=== PATIENT | female | born 1995 | race Caucasian/White ===

== ENCOUNTER → 2020-05-31 13:45 | Outpatient (BNVA) | payer OTHER, SELFPAY | PROVIDERS: PCP Internal Medicine; Visit Provider Internal Medicine | DX: S93.402A Sprain of unspecified ligament of left ankle, initial encounter (principal); X50.1XXA Overexertion from prolonged static or awkward postures, initial encounter | CPT/HCPCS: 73610; 99202 ==

== ENCOUNTER 2020-12-10 15:35 | Emergency (ER) | payer OTHER, SELFPAY ==
[2020-12-10 16:00] VITALS: BP 108/63; PULSE 85; RESP 16; TEMP 36.3; O2SAT 98; BMI 36.6
[2020-12-10] MEDS: Acetaminophen 325 MG TABLET 650 MG PO (16:05)
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
== END 2020-12-10 17:27 | disposition home or self-care (01) ==
PROVIDERS: Emergency Provider Student in an Organized Health Care Education/Training Program
DX: F07.81 Postconcussional syndrome (principal); F17.210 Nicotine dependence, cigarettes, uncomplicated; Z71.6 Tobacco abuse counseling; Z79.899 Other long term (current) drug therapy
CPT/HCPCS: 99283; 99284

== ENCOUNTER 2020-12-17 10:30 | Outpatient (RCR) | payer OTHER, SELFPAY ==
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
[2020-12-03 12:50] VITALS: BMI 36.8
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
--- NOTE | 2020-12-06 10:47 | PM.EVENT ---
Event Note Date of Service: 12/06/20 Event Note: Out of work note for dates 11/29/2020 through 12/20/2020 scanned and sent to patient, per her request.
--- NOTE | 2020-12-06 16:01 | PC.NURSE ---
Case opened in treatment team
--- NOTE | 2020-12-08 14:21 | HO.PHPPROGNO ---
Subjective Subjective Date of Service: 12/08/20 Reason For Visit: Anxiety, MDD Guardianship: No Medical Problems Affecting Mental Status: No Interim History: Client reports feeling GI side effects of Lexapro the following days including upset stomach. She reports that following day she did not feel bad and that appear to be resolving. She states she has not needed to take p.r.n. hydroxyzine. Reports that overall she feels groups are helping control her anxiety, and that her sleep has improved. Would like to continue Lexapro. Has had no allergic reaction in any way to medication. She is a little nervous regarding being alone after her family leaves, but feels confident that she will be able to manage being alone. Medication Compliance: Yes Side effects from medications: Yes (GI upset, resolving) Attending Groups: Yes Review of Systems Acute medical concerns: No Medical Review of Systems: unchanged Review of Systems Review of Systems Yes all other systems are reviewed and are negative Mental Status Exam Mental Status Exam Narrative: Well-developed, well-nourished female, in NAD. Appropriately dressed and groomed. Endorses feelings of some anxiety including feeling nervous, with excessive worry at times, trouble relaxing, and restlessness. Reports that these symptoms have been subsiding and intensity over the past week. Patient Appearance: Well Grooomed and Appropriate Patient Orientation: Person, Place, Time and Situation Level of Consciousness: Awake, Appropriate and Alert Patient Behavior: Appropriate, Cooperative and Good Eye Contact Mood Description: Calm and Appropriate Affect Description: Appropriate and Anxious Patient Cognition Impaired: No Ability to Follow Directions: Excellent Speech Pattern: Clear, Appropriate and Coherent Memory Description: Intact Hallucinations: None Delusions: Not Present Thought Process: Intact, Goal Oriented and Linear Thought Content: positive for Intact, positive for Goal Oriented and positive for Linear Depressive Symptoms: Difficulty Sleeping (improving) Judgement: Fair Diagnostics Vital Signs (24Hr): Body Mass Index 36.8 Assessment & Plan Assessment & Plan (1) Major depressive disorder, single episode with anxious distress: Status: Acute Code(s): F32.9 - Major depressive disorder, single episode, unspecified Assessment and Plan: Patient reports improvement in symptoms with initiation of Lexapro. Reports she has not experienced any type of side effects from Lexapro. Is willing to continue, with dose titration. Patient reports she has not taken p.r.n. hydroxyzine, although she understands it is available to her and will utilize it if needed. (2) SHON (generalized anxiety disorder): Status: Acute Code(s): F41.1 - Generalized anxiety disorder (3) PTSD (post-traumatic stress disorder): Status: Acute Code(s): F43.10 - Post-traumatic stress disorder, unspecified Assessment and Plan: 1. Increase lexapro to 10mg daily. 30-day script sent to pharmacy. 2. Keep vistaril prn, has not utilized. Has a supply that was ordered last week, no refills needed. 3. Follow-up as per protocol. Patient educated on: diagnosis, medication risk/benefits and therapeutic strategies Informed Consent: understands Reason for contiued partial hosp. stay Substantial Risk for: inability to function Certification I certify that partial hospital treatment is medically necessary due to the symptoms and problems resulting from the patient's mental illness and the failure to treat the patient at the partial hospital level of care would likely result in the patient requiring inpatient psychiatric care which could not be prevented at a less intensive level of care. Greater than 50% of the session was spent on counseling and/or coordination of care Discharge Plan Discharge Attending provider: Issa Moser Medications: New hydroxyzine HCl 25 mg tablet 25 mg PO BID PRN (Reason: anxiety) Qty: 14 RF: 0 escitalopram oxalate [Lexapro] 10 mg tablet 10 mg PO DAILY Qty: 30 RF: 0 Telehealth Telehealth Location of provider rendering services: practice address Patient Identification confirmed using: Name, : Yes Telehealth method: video Patient verbally consented to treatment: Yes Patient verbally consented to billing insurance company: Yes Patient informed of any privacy concerns related to visit: Yes Time spent with patient (mins): 15
--- NOTE | 2020-12-14 11:48 | P.PNPSP_ITS ---
Subjective Subjective Date of Service: 12/14/20 Reason For Visit: Anxiety, MDD Healthcare Proxy: No Guardianship: No Medical Problems Affecting Mental Status: No Interim History: I evaluated the pt this morning and upon inquiry she reports positive benefit on lexapro, ?it seems to be fine for right now, when i remember to take them.? Now has an alarm on her phone. No side effects reported. Says ?I feel like its kept my anxiety down,? hasnt had a panic attack. Says she is sleeping through the night again. Feeling safe, sx of depression are manageable, ?im definitely feeling a lot better.? PCP is willing to prescribe lexapro. Medication Compliance: Yes Side effects from medications: No Attending Groups: Yes Review of Systems Acute medical concerns: No Medical Review of Systems: unchanged Review of Systems Review of Systems CVS: No c/o chest pain, palpitations, no SOB [employer]: No c/o dizziness, headache GI: No c/o Nausea, Vomiting, diarrhea, constipation or heartburn Mental Status Exam Mental Status Exam Narrative: Narrative:?Well-developed, well-nourished female, in NAD.? Appropriately dressed and groomed.? Endorses feelings of some anxiety including feeling nervous, with excessive worry at times, trouble relaxing, and restlessness.? Reports that these symptoms have been subsiding and intensity over the past week. Patient Appearance:?Well Grooomed and Appropriate Patient Orientation:?Person, Place, Time and Situation Level of Consciousness:?Awake, Appropriate and Alert Patient Behavior:?Appropriate, Cooperative and Good Eye Contact Mood Description:?Calm and Appropriate Affect Description:?Appropriate and euthymic Patient Cognition Impaired:?No Ability to Follow Directions:?Excellent Speech Pattern:?Clear, Appropriate and Coherent Memory Description:?Intact Hallucinations:?None Delusions:?Not Present Thought Process:?Intact, Goal Oriented and Linear Thought Content:?positive for Intact, positive for Goal Oriented and positive for Linear Depressive Symptoms:?Difficulty Sleeping (improving) Judgement:?Fair Diagnostics Vital Signs (24Hr): Body Mass Index 36.8 Assessment & Plan Assessment & Plan (1) Major depressive disorder, single episode with anxious distress: Status: Acute Code(s): F32.9 - Major depressive disorder, single episode, unspecified (2) SHON (generalized anxiety disorder): Status: Acute Code(s): F41.1 - Generalized anxiety disorder (3) PTSD (post-traumatic stress disorder): Status: Acute Code(s): F43.10 - Post-traumatic stress disorder, unspecified Assessment and Plan: Continue lexapro trial due to reported benefit. Certification I certify that partial hospital treatment is medically necessary due to the symptoms and problems resulting from the patient's mental illness and the failure to treat the patient at the partial hospital level of care would likely result in the patient requiring inpatient psychiatric care which could not be prevented at a less intensive level of care. Greater than 50% of the session was spent on counseling and/or coordination of care Discharge Plan Discharge Attending provider: Issa Moser Medications: New hydroxyzine HCl 25 mg tablet 25 mg PO BID PRN (Reason: anxiety) Qty: 14 RF: 0 escitalopram oxalate [Lexapro] 10 mg tablet 10 mg PO DAILY Qty: 30 RF: 0 No Action ondansetron HCl [Zofran] 4 mg tablet 4 mg PO Q6H PRN (Reason: nausea and vomiting) Qty: 10 RF: 0
--- NOTE | 2020-12-16 09:25 | PC.ADMIT ---
Patient not scheduled for PHP today. Stated her daughter has an appointment that she needs to bring her to, also she stated her mother is currently in the emergency room for gallstones and patient is going to see her now. Plans on coming to the program tomorrow.
--- NOTE | 2020-12-17 15:26 | PC.NURSE ---
Called [facility] and [facility] for pt's therapist, Jennifer Escalante, informing her of pt's successful discharge today.
== END 2020-12-21 07:11 | disposition home or self-care (01) ==
LOC: HO.PHPA 10:30
PROVIDERS: Visit Provider Psychiatry & Neurology Psychiatry
DX: F32.9 Major depressive disorder, single episode, unspecified (principal); F41.1 Generalized anxiety disorder; F43.10 Post-traumatic stress disorder, unspecified
CPT/HCPCS: 90791; 90853

== ENCOUNTER 2023-01-18 05:17 | Emergency (ER) | payer OTHER, SELFPAY ==
--- NOTE | 2023-01-18 05:29 | ED_ITS ---
HPI - General Adult General Chief complaint: General Medical Stated complaint: n/v chills Time Seen by Provider: 01/18/23 05:28 Source: patient Mode of arrival: ambulatory Limitations: no limitations History of Present Illness HPI narrative: Patient complaining of body aches headache nausea vomiting for last few days patient never got vaccinated against COVID no shortness of breath no chest pain does have a history of migraine headaches with light sensitivity no abdominal pain or diarrhea Related Data Previous Rx's Medication Instructions Recorded hydroxyzine HCl 25 mg tablet 25 mg PO BID PRN anxiety #14 tabs 12/03/20 escitalopram oxalate 10 mg tablet 10 mg PO DAILY #30 tabs 12/08/20 (Lexapro) ondansetron HCl 4 mg tablet 4 mg PO Q6H PRN nausea and 12/10/20 (Zofran) vomiting #10 tabs benzonatate 200 mg capsule 200 mg PO TID PRN cough #30 caps 01/18/23 [id number]-dfzgjsuoehefx-alayjrfu 1 tab PO Q6H PRN haeadace #20 tabs 01/18/23 50 mg-325 mg-40 mg tablet ibuprofen 600 mg tablet 600 mg PO Q6H PRN fever or pain 01/18/23 #30 tabs ondansetron 4 mg disintegrating 4 mg PO Q6-8H PRN nausea and 01/18/23 tablet vomiting #7 tabs sumatriptan succinate 50 mg tablet 50 mg PO Q2H PRN migraine headache 01/18/23 (Imitrex) #10 tabs Allergies Allergy/AdvReac Type Severity Reaction Status Date / Time citalopram [From CELEXA] Allergy Unknown Rash Verified 12/03/20 12:47 strawberry [STRAWBERRY] Allergy Unknown HIVES Verified 12/03/20 11:22 Review of Systems 2 Review of Systems: Yes all other systems are reviewed and are negative PMFSH Past Medical History Medical History Miscarriage Social History Social History Household Members: Significant Other, Friend(s) and Other Household Members Other:: Friend's three children Patient Tobacco Use Status: Current everyday Tobacco user Tobacco use type: Cigarette Cigarette Packs Per Day: 0.5 Cigarettes Per Day: 10 Advance Directives: No Advance Directives Information Provided: Yes Physical Exam ED Vital Signs: Vital Signs - 24 hr 01/18/23 05:38 01/18/23 06:15 Temperature 100.3 F Pulse Rate 96 90 Respiratory Rate 16 14 Blood Pressure 130/61 Pulse Oximetry 96 94 Oxygen Delivery Method Room Air Room Air BMI result Body Mass Index 40.6 Appearance: Alert. Oriented X3. No acute distress. Eyes: PERRLA, ENT: Pharynx normal. Oral Mucosa moist Neck: Normal inspection. Neck supple. CVS: Normal heart rate and rhythm. Pulses normal. Respiratory: No respiratory distress. Equal air entry bilateral, Abdomen: Soft and nontender. Bowel sounds are present, Skin: Skin warm and dry. Normal skin color. Normal skin turgor. Extremities: No lower extremity edema. No calf tenderness Neuro: Oriented X 3. No motor deficit. No sensory deficit.No cerebellar signs , cranial nerves II-XII intact Medications Administered Discontinued Medications Generic Name Dose Route Start Last Admin Trade Name Freq PRN Reason Stop Dose Admin Sodium Chloride 1,000 mls @ 999 mls/hr 01/18/23 05:49 01/18/23 06:56 Ns IV 01/18/23 06:49 Infused .Q1H1M ONE Infusion Ondansetron HCl 4 mg 01/18/23 05:49 01/18/23 05:58 Ondansetron Hcl 4 Mg/2 Ml Vial IVPUSH 01/18/23 05:50 4 mg ONCE ONE Administration Sumatriptan Succinate 6 mg 01/18/23 05:48 01/18/23 05:56 Sumatriptan Succinate 6 Mg/0.5 Ml Vial SUBCUT 01/18/23 05:49 6 mg ONCE ONE Administration Medical Decision Making Differential Diagnosis Differential Diagnoses: The differential diagnosis associated with the presentation includes viral syndrome/migraine Lab Data MDM Lab Attestation statement: I reviewed the patient's lab results. 01/18/23 05:53 01/18/23 05:52 Labs: Lab Results 01/18/23 01/18/23 Range/Units 05:52 05:53 WBC 8.6 (4.8-10.8) X10*3/uL RBC 4.39 (4.20-5.50) X10*6/uL Hgb 12.6 (12.0-16.0) g/dl Hct 38.8 (37.0-47.0) % MCV 88.4 (80.0-98.0) fL MCH 28.7 (27.0-33.0) pg MCHC 32.5 (31.0-35.0) g/dl RDW 12.6 (11.0-16.0) % Plt Count 260 (160-400) X10*3/uL MPV 10.0 (9.4-12.3) fL Absolute Nucleated RBC 0.000 (0.0-0.012) X10*3/uL Nucleated RBC % (auto) 0.0 (0.0-0.2) /100WBC ESR 14 (0-20) MM/HR Sodium 138 (135-145) mmol/L Potassium 4.1 (3.3-5.1) mmol/L Chloride 107 (96-108) mmol/L Carbon Dioxide 22 (22-29) mmol/L Anion Gap 13 (12-20) BUN 10 (9-16) mg/dL Creatinine 0.72 (0.5-1.4) mg/dL Estim Creat Clear Calc 142.7 Estimated GFR > 60 Random Glucose 99 (60-115) mg/dL Calcium 9.0 (8.4-10.2) mg/dL Total Bilirubin 0.2 (0.0-1.0) mg/dL AST 21 (5-31) U/L ALT 19 (0-31) U/L Alkaline Phosphatase 49 (39-117) U/L Total Protein 7.3 (6.5-8.0) g/dL Albumin 3.9 (3.5-5.0) g/dL Influenza Type A (PCR) NEGATIVE (Negative) Influenza Type B (PCR) NEGATIVE (Negative) RSV RNA Qual (PCR) NEGATIVE (Negative) SARS-CoV-2 RNA (RT-PCR) POSITIVE A (Negative) Discharge Plan Discharge Clinical Impression: Migraine, COVID-19 Patient Disposition: Home, Self-Care Instructions: Migraine Headache (ED), COVID-19 (Coronavirus Disease 2019) (ED) Additional Instructions: Care and cautions as advised Social distancing Cough drops Ibuprofen for body aches Imitrex and Fioricet for migraine as prescribed Zofran for nausea Prescriptions: New benzonatate 200 mg capsule 200 mg PO TID PRN (Reason: cough) Qty: 30 0RF sumatriptan succinate [Imitrex] 50 mg tablet 50 mg PO Q2H PRN (Reason: migraine headache) Qty: 10 0RF Rx Instructions: do not exceed 2 doses per 24 hrs [id number]-wvrizliduksgu-xqga 50-325-40 mg tablet 1 tab PO Q6H PRN (Reason: haeadace) Qty: 20 0RF ibuprofen 600 mg tablet 600 mg PO Q6H PRN (Reason: fever or pain) Qty: 30 0RF ondansetron 4 mg tablet,disintegrating 4 mg PO Q6-8H PRN (Reason: nausea and vomiting) Qty: 7 0RF No Action hydroxyzine HCl 25 mg tablet 25 mg PO BID PRN (Reason: anxiety) Qty: 14 0RF escitalopram oxalate [Lexapro] 10 mg tablet 10 mg PO DAILY Qty: 30 0RF ondansetron HCl [Zofran] 4 mg tablet 4 mg PO Q6H PRN (Reason: nausea and vomiting) Qty: 10 0RF Discharge Date/Time: 01/18/23 07:22
[2023-01-18 05:38] VITALS: BP 130/61; BP 130/80; PULSE 108; PULSE 96; RESP 16; TEMP 37.9; O2SAT 96; O2SAT 98; BMI 40.6
--- NOTE | 2023-01-18 05:46 | PC.NURSE ---
pt changed over into hospital attire, provider into assess pt.
[2023-01-18] MEDS: 0.9 % Sodium Chloride 1,000 ML 999 ML IV (05:56)
[2023-01-18] MEDS: SUMAtriptan succinate 6 MG/0.5 ML VIAL SUBCUT (05:56)
[2023-01-18] MEDS: ondansetron HCL 4 MG/2 ML VIAL IVPUSH (05:58)
--- NOTE | 2023-01-18 06:00 | PC.NURSE ---
Iv placed, medicated per Mar, labs collected and sent.
[2023-01-18 06:11] LABS: Hematocrit 38.8 % (37.0-47.0); Hemoglobin 12.6 g/dl (12.0-16.0); Mean Corpuscular HGB Conc 32.5 g/dl (31.0-35.0); Mean Corpuscular Hemoglobin 28.7 pg (27.0-33.0); Mean Corpuscular Volume 88.4 fL (80.0-98.0); Platelet Count 260 X10*3/uL (160-400); Red Blood Count 4.39 X10*6/uL (4.20-5.50); Red Cell Distribution Width 12.6 % (11.0-16.0); White Blood Count 8.6 X10*3/uL (4.8-10.8)
[2023-01-18 06:14] LABS: Alanine Aminotransferase 19 U/L (0-31); Albumin Level 3.9 g/dL (3.5-5.0); Alkaline Phosphatase 49 U/L (39-117); Anion Gap 13 (12-20); Aspartate Amino Transferase 21 U/L (5-31); Bilirubin Total 0.2 mg/dL (0.0-1.0); Blood Urea Nitrogen 10 mg/dL (9-16); Carbon Dioxide 22 mmol/L (22-29); Chloride 107 mmol/L (96-108); Creatinine Clr Calc Pharmacy 142.7; Estimated Glomerular Filt Rate > 60; Glucose Random 99 mg/dL (60-115); Potassium 4.1 mmol/L (3.3-5.1); Sodium 138 mmol/L (135-145); Total Protein 7.3 g/dL (6.5-8.0)
[2023-01-18 06:15] VITALS: PULSE 90; RESP 14; O2SAT 94
--- OUTSIDE RECORDS SUMMARY | 2023-01-18 06:17 | XMS_ITS | Continuity of Care Document ---
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 Name Role Phone Sara JOHNSTON, Michelle Primary Care Physician Encounter [facility] Date([place]): 04/05/22 - 04/07/[address] [id number] Discharge Disposition: A-D/C Home Attending Physician: Sher Cuevas MD Admitting Physician: Sher Cuevas MD Referring Physician: Sher Cuevas MD Allergies, Adverse Reactions, Alerts Substance Reaction Severity Status Strawberries itchy throat Resolved CeleXA Rash Active Immunizations Given and Recorded Vaccine Date Status Refusal Reason tetanus/diphtheria/pertussis, acel(Tdap) 12/27/21 Given Not Given Vaccine Date Status Refusal Reason influenza virus vaccine, inactivated 04/07/22 Not Given Patient Refuses Medications acetaminophen 325 mg oral tablet 650 mg, By Mouth, Every 4 hours, (1-3), may give 325mg per patient preference and re-dose with 325mg within 4 hours, if needed. Patient should only receive a total of 650mg of Acetaminophen every 4 hours., # 90 tablet, Refills 0, Tot. Refills 0, Sameera... Start Date: 04/01/22 Status: Ordered famotidine 20 mg oral tablet See Instructions, TAKE 1 TABLET BY MOUTH EVERYDAY AT BEDTIME, # 30 tablet, Refills 1, Maintenance, 02/14/22 6:30:00 EST, Instructions Replace Required Details, Route to Pharmacy Electronically, [id number], 164, cm, 02/09/22 11:07:00 EST, Height,... Start Date: 02/14/22 Status: Ordered ibuprofen 600 mg oral tablet 600 mg, Tablet, By Mouth, Every 6 hours, PRN for Pain , Mild, Routine, 04/05/22 19:17:00 EST Start Date: 04/05/22 Stop Date: 04/08/22 Status: Discontinued ibuprofen 800 mg oral tablet 800 mg, 1, tablet, By Mouth, Every 8 hours, (4-6), may give 400mg per patient preference and re-dose with 400mg within 8 hours, if needed. Patient should only receive a total of 800mg of Ibuprofen every 8 hours., # 90 tablet, Refills 0, Tot. Refills... Start Date: 04/01/22 Status: Ordered MiraLax oral powder for reconstitution = 17 Gm, By Mouth, Daily, PRN Constipation, dissolve in water before taking, # 255 Gm, 0 Refills, Maintenance, 08/13/21 12:58:00 EDT, REC Powder, [id number], Partial fill upon patient requestif the prescription is for a schedule II opioid kat... Start Date: 08/13/21 Status: Ordered ondansetron 4 mg oral tablet, disintegrating = 4 mg, By Mouth, Every 6 hours, PRN Nausea & Vomiting, # 30 tablet, 1 Refills, Maintenance, 04/07/22 15:04:00 EST, Tablet, [id number], Partial fill upon patient request if the prescription is for a schedule II opioid drug., 164, cm, 04/07/22... Start Date: 04/07/22 Status: Ordered Tylenol 325 mg oral tablet 975 mg, Tablet, By Mouth, Every 6 hours, PRN for Pain , Mild, Routine, 04/05/22 19:16:00 EST Start Date: 04/05/22 Stop Date: 04/08/22 Status: Discontinued Problem List Condition Confirmation Course Effective Dates Status Health St atus Informant Chronic constipation Confirmed Active Anxiety and depression 1 Confirmed Active Rh negative status during in first trimester Confirmed Active Severe obesity (BMI 35.0-39.9) with comorbidity Confirmed Active 1Managed by PCP/has weekly therapy session/not currently on medications. Pt reports will call PCP todiscuss subsitute Rx for lexapro - as she would like to continue to take medication during . Results Radiology Reports * Exam Date Time Procedure Performing Provider Status 04/06/22 10:41 PM MRA Neck W/ Contrast G[place] Spring (Verified) Notes: (MRA Neck W/ Contrast) Reason For Exam: Headache(s) RESULT: MRA Neck W/ Contrast MRI Brain W/O Contrast, MRA Head W+W/O Contrast, MRA Neck W/ Contrast INDICATION: Reason: Vertigo; Clinical Question(s): Infarction; Order Comment: Please see Reference Text for complete list of contraindications Infarction TECHNIQUE: MRI of the brain was performed without contrast utilizing sagittal T1, axial T2, axial FLAIR, axial SWAN, and axial DWI sequences. A noncontrast 3- D [id number] MRA of the head was performed. A contrast-enhanced 3-D MRA of the neck and MRV of the head were performed after the administration of 20 cc of IV Clariscan. Both the source images and angiographic/venographic reconstructionswere reviewed. COMPARISON: CT scan of the head 04/05/2022 FINDINGS: MRI OF THE BRAIN BRAIN and EXTRA-AXIAL SPACES: The flow voids through the [place] of [place] are maintained, and thereis no restricted diffusion or abnormal susceptibility artifact. The brainstem and cerebellum are unremarkable. The brain parenchyma is normal in signal. The ventricles are normal in size. No mass effect or extra-axial fluid collection. The cervicomedullary junction is unremarkable. EXTRACRANIAL SOFT TISSUES: Orbits are unremarkable. Paranasal sinuses and mastoids are unremarkable. BONES: Marrow signal is preserved. MRA OF THE NECK Common innominate and left common carotid artery origin. The origins of the great vessels arising from the aortic arch are widely patent, and the subclavian arteries are patent. The common carotid arteries and cervical internal carotid arteries are patent (0% stenosis by NASCET criteria). The left vertebral artery is dominant. The extracranial vertebral arteries are patent. MRA OF THE HEAD The intracranial internal carotid arteries are patent. The visualized anterior and middle cerebral artery branches are unremarkable. The anterior communicating artery and MCA bifurcations are unremarkable. The left vertebral artery is dominant. The PICA origins are patent. The intracranial vertebral arteries and basilar artery are patent. The superior cerebellar arteries are patent. type left posterior cerebral artery. A smaller right posterior communicating arteries present. The visualized posterior cerebral arteries are unremarkable. MR VENOGRAM OF THE HEAD The superior sagittal, transverse, and sigmoid sinuses are patent. The paired internal cerebral veins, straight sinus, and vein of Santos are patent. No abnormal intracranial enhancement is noted. IMPRESSION: 1. Normal noncontrast MRI examination of the brain. No acute infarct or brainstem signal abnormality. 2. Unremarkable MRA of the head and neck. 3. No evidence of dural venous sinus thrombosis. WSN: [id number] Ordering Physician: Kenroy Celestin Dictated By: Ajay Salter MD Dictated Date/Time: 04/07/22 8:02 am Reviewed By: Ajay Salter MD Signed By: Ajay Salter MD Signed Date/Time: 04/07/22 8:02 am Transcribed By: VICKI Transcribed Date/Time: 04/07/22 7:45 am * Exam Date Time Procedure Performing Provider Status 04/06/22 10:41 PM MRA Head W+W/O Contrast [place] (Verified) Notes: (MRA Head W+W/O Contrast) Reason For Exam: venous sinus thrombosis;Vertigo RESULT: MRA Head W+W/O Contrast MRI Brain W/O Contrast, MRA Head W+W/O Contrast, MRA Neck W/ Contrast INDICATION: Reason: Vertigo; Clinical Question(s): Infarction; Order Comment: Please see Reference Text for complete list of contraindications Infarction TECHNIQUE: MRI of the brain was performed without contrast utilizing sagittal T1, axial T2, axial FLAIR, axial SWAN, and axial DWI sequences. A noncontrast 3- D [id number] MRA of the head was performed. A contrast-enhanced 3-D MRA of the neck and MRV of the head were performed after the administration of 20 cc of IV Clariscan. Both the source images and angiographic/venographic reconstructionswere reviewed. COMPARISON: CT scan of the head 04/05/2022 FINDINGS: MRI OF THE BRAIN BRAIN and EXTRA-AXIAL SPACES: The flow voids through the [place] of [place] are maintained, and thereis no restricted diffusion or abnormal susceptibility artifact. The brainstem and cerebellum are unremarkable. The brain parenchyma is normal in signal. The ventricles are normal in size. No mass effect or extra-axial fluid collection. The cervicomedullary junction is unremarkable. EXTRACRANIAL SOFT TISSUES: Orbits are unremarkable. Paranasal sinuses and mastoids are unremarkable. BONES: Marrow signal is preserved. MRA OF THE NECK Common innominate and left common carotid artery origin. The origins of the great vessels arising from the aortic arch are widely patent, and the subclavian arteries are patent. The common carotid arteries and cervical internal carotid arteries are patent (0% stenosis by NASCET criteria). The left vertebral artery is dominant. The extracranial vertebral arteries are patent. MRA OF THE HEAD The intracranial internal carotid arteries are patent. The visualized anterior and middle cerebral artery branches are unremarkable. The anterior communicating artery and MCA bifurcations are unremarkable. The left vertebral artery is dominant. The PICA origins are patent. The intracranial vertebral arteries and basilar artery are patent. The superior cerebellar arteries are patent. type left posterior cerebral artery. A smaller right posterior communicating arteries present. The visualized posterior cerebral arteries are unremarkable. MR VENOGRAM OF THE HEAD The superior sagittal, transverse, and sigmoid sinuses are patent. The paired internal cerebral veins, straight sinus, and vein of Santos are patent. No abnormal intracranial enhancement is noted. IMPRESSION: 1. Normal noncontrast MRI examination of the brain. No acute infarct or brainstem signal abnormality. 2. Unremarkable MRA of the head and neck. 3. No evidence of dural venous sinus thrombosis. WSN: [id number] Ordering Physician: Kenroy Celestin Dictated By: Ajay Salter MD Dictated Date/Time: 04/07/22 8:02 am Reviewed By: Ajay Salter MD Signed By: Ajay Salter MD Signed Date/Time: 04/07/22 8:02 am Transcribed By: VICKI Transcribed Date/Time: 04/07/22 7:45 am * Exam Date Time Procedure Performing Provider Status 04/06/22 10:41 PM MRI Brain W/O Contrast [place] (Verified) Notes: (MRI Brain W/O Contrast) Reason For Exam: Vertigo RESULT: MRI Brain W/O Contrast MRI Brain W/O Contrast, MRA Head W+W/O Contrast, MRA Neck W/ Contrast INDICATION: Reason: Vertigo; Clinical Question(s): Infarction; Order Comment: Please see Reference Text for complete list of contraindications Infarction TECHNIQUE: MRI of the brain was performed without contrast utilizing sagittal T1, axial T2, axial FLAIR, axial SWAN, and axial DWI sequences. A noncontrast 3- D [id number] MRA of the head was performed. A contrast-enhanced 3-D MRA of the neck and MRV of the head were performed after the administration of 20 cc of IV Clariscan. Both the source images and angiographic/venographic reconstructionswere reviewed. COMPARISON: CT scan of the head 04/05/2022 FINDINGS: MRI OF THE BRAIN BRAIN and EXTRA-AXIAL SPACES: The flow voids through the [place] of [place] are maintained, and thereis no restricted diffusion or abnormal susceptibility artifact. The brainstem and cerebellum are unremarkable. The brain parenchyma is normal in signal. The ventricles are normal in size. No mass effect or extra-axial fluid collection. The cervicomedullary junction is unremarkable. EXTRACRANIAL SOFT TISSUES: Orbits are unremarkable. Paranasal sinuses and mastoids are unremarkable. BONES: Marrow signal is preserved. MRA OF THE NECK Common innominate and left common carotid artery origin. The origins of the great vessels arising from the aortic arch are widely patent, and the subclavian arteries are patent. The common carotid arteries and cervical internal carotid arteries are patent (0% stenosis by NASCET criteria). The left vertebral artery is dominant. The extracranial vertebral arteries are patent. MRA OF THE HEAD The intracranial internal carotid arteries are patent. The visualized anterior and middle cerebral artery branches are unremarkable. The anterior communicating artery and MCA bifurcations are unremarkable. The left vertebral artery is dominant. The PICA origins are patent. The intracranial vertebral arteries and basilar artery are patent. The superior cerebellar arteries are patent. type left posterior cerebral artery. A smaller right posterior communicating arteries present. The visualized posterior cerebral arteries are unremarkable. MR VENOGRAM OF THE HEAD The superior sagittal, transverse, and sigmoid sinuses are patent. The paired internal cerebral veins, straight sinus, and vein of Santos are patent. No abnormal intracranial enhancement is noted. IMPRESSION: 1. Normal noncontrast MRI examination of the brain. No acute infarct or brainstem signal abnormality. 2. Unremarkable MRA of the head and neck. 3. No evidence of dural venous sinus thrombosis. WSN: [id number] Ordering Physician: Kenroy Celestin Dictated By: Ajay Salter MD Dictated Date/Time: 04/07/22 8:02 am Reviewed By: Ajay Salter MD Signed By: Ajay Salter MD Signed Date/Time: 04/07/22 8:02 am Transcribed By: VICKI Transcribed Date/Time: 04/07/22 7:45 am * Exam Date Time Procedure Performing Provider Status 04/05/22 9:[address] Head/Brain W/O Contrast Davi Julian; Auth (Verified) Notes: (CT Head/Brain W/O Contrast) Reason For Exam: Vertigo RESULT: CT Head/Brain W/O Contrast CT Head/Brain W/O Contrast INDICATION: Reason: Vertigo; Clinical Question(s): Structural vascular cause of vertigo TECHNIQUE: Noncontrast head CT using axial technique and reconstructed in axial and coronal planes.Iterative reconstruction techniques are used to optimize dose and image quality. CTDIvol Head: 45.70 mGy, DLP Head: 773 mGy*cm. COMPARISON: CT head dated 04/17/2013 FINDINGS: Shuttle Veneering Supervisor view findings, lines and tubes: None. BRAIN AND EXTRA-AXIAL SPACES: No parenchymal hemorrhage, midline shift, or mass effect. Dubose-white matter differentiation is wellpreserved. No acute infarct. Negative insular ribbon and hyperdense vessel signs. Ventricles, sulci, and basilar cisterns are normal. No white matter lesions. No subarachnoid hemorrhage. No subdural or epidural collection. CALVARIUM, SKULL BASE, AND SOFT TISSUES: No fractures or suspicious bony lesions. The paranasal sinuses and mastoid air cells are clear. Visualized orbits and globes are intact. The extracranial soft tissues are unremarkable. IMPRESSION: Normal. I have personally reviewed the images and I agree with this report. WSN: [id number] Ordering Physician: Florencia Gibson Dictated By: Nalini Christianson MD Dictated Date/Time: 04/05/22 9:13 pm Reviewed By: Carrington Holland MD Signed By: Carrington Holland MD Signed Date/Time: 04/05/22 9:18 pm Transcribed By: VICKI Transcribed Date/Time: 04/05/22 9:10 pm Vital Signs Most recent to oldest [Reference Range]: 1 2 3 Height 164 cm (04/07/22 8:00 AM) 164 cm (04/07/22 12:25 AM) 164 cm (04/06/22 11:51 PM) Weight 102 kg (04/06/22 8:28 AM) 102.2 kg (04/05/22 3:31 PM) Oxygen Saturation [94-100 %] 99 % (04/07/22 8:00 AM) 100 % (04/07/22 12:25 AM) 97 % (04/06/22 11:51 PM) Pulse Rate [55-90 bpm] 57 bpm (04/07/22 8:00 AM) 61 bpm (04/07/22 12:25 AM) 66 bpm (04/06/22 11:51 PM) Body Mass Index [18.5-24.99 kg/m2] 37.92 kg/m2 *>HHI* (04/06/22 8:28 AM) Blood Pressure [90-138/55-84 mm Hg] 99/57mm Hg (04/07/22 8:00 AM) 110/69mm Hg (04/07/22 12:25 AM) 105/59mm Hg (04/06/22 11:51 PM) Respiratory Rate [16-30 br/min] 18 br/min (04/07/22 8:30 AM) 18 br/min (04/07/22 8:30 AM) 18 br/min (04/07/22 8:00 AM) Temperature [96.8-100.4 DegF] 98.1 DegF (04/07/22 8:00 AM) 98.4 DegF (04/07/22 12:25 AM) 97.7 DegF (04/06/22 11:51 PM) Mode of Delivery (Oxygen) Room air (04/07/22 8:00 AM) Room air (04/07/22 12:25 AM) Room air (04/06/22 11:51 PM) Blood pressure sites Arm, right (04/07/22 8:00 AM) Arm, right (04/07/22 12:25 AM) Arm, left (04/06/22 11:51 PM) Temperature Route Oral (04/07/22 8:00 AM) Oral (04/07/22 12:25 AM) Oral (04/06/22 11:51 PM) Dry Weight 102 kg (04/06/22 8:28 AM) 102.2 kg (04/05/22 3:31 PM) Weight Obtained Via Standing scale (04/05/22 3:31 PM) Dry Weight Obtained Via Standing scale (04/05/22 3:31 PM) Social History Social History Type Response Smoking Status Former smoker, quit more than 30 days ago entered on: 08/16/21 Sex History and physical note * Florencia Gibson MD: PERFORM Event Display: History and Physical Hospital Authored Date: [id number] Patient: ??SABAROX JEFFERY ? Age:??26 Years?Sex:??Female?:??1995?? History of Present Illness Patient is a 26 yo day 7 from primary [facility] with dizziness. Of note, patient with similar symptoms 1-2 weeks prior to delivery. During this time, work-up forpatient's dizziness has included normal EKG, normal orthostatic vital signs, normal electrolytes. Patient's was uncomplicated with QBL 425 mL, and patient's post-operative Hgb stable at 11.0 without concerns for heavy bleeding . Prior to discharge home on post-operative day 2, patient assisted through Audrey maneuver for concern for vertigo. The patient has been performing thismaneuver at home without improvement in her symptoms. ?? Today she reports dizziness that is constant but worse with movement of her head and walking. This dizziness is described as room spinning, and she denies any tunneling of her vision. She is not able to walk without assistance, and she needed to bring a bed into her living room to be able to make the distance to the bathroom shorter. The patient has been living with her partner, 17 year old sister, and her . She is able to hold the baby while sitting down, but she is unable to transport baby or otherwise care for baby on her own. The dizziness is causing her some nausea, but she hasnot been having any vomiting. Tolerating a regular diet. She notes her incisional pain is well controlled, only taking ibuprofen and Tylenol as needed, and her bleeding has remained light. She is . She denies any fever, chills. No numbness, tingling, or weakness in her arms or legs. She notes the difficulty in walking is purely due to dizziness rather than weakness or difficulty moving her legs. She has had a couple falls since being home due to the dizziness, but she limits this by only moving with direct assistance from her partner. She denies any prior history of vertigo or other similar episodes of dizziness outside of the past few weeks. She denies any headache at this time. Review of Systems Constitutional:??No fever, chills or weakness. HEENT:??Dizziness described as the room spinning. Skin:??No rash or itching. Cardiovascular:??No chest pain. Respiratory:??No shortness of breath. Gastrointestinal:??Nausea without vomiting. Mild abdominal pain. Genitourinary:??No dysuria. Gynecologic:??Light lochia present. Neurologic:??No current??headache. Dizziness. Physical Exam Vitals & Measurements T:??98.3?F ?? NJ:??69?? RR:??18?? BP:??109/69?? BP:??107/72(Sitting)?? BP:??99/69(Standing)?? BP:??109/57(Supine)?? HT:??164??cm?? WT:??102.2??kg?? General: Well-appearing woman in no acute distress. Tearful when discussing dizziness and difficulty caring for self and baby. Lung: Normal work of breathing. Lungs clear to auscultation bilaterally. No wheezes or crackles. CV: Regular rate and rhythm. No murmurs, rubs, or gallops. Abdomen: Soft, non-distended,??minimally??tender. Fundus firm and contracted below umbilicus. Well-healing low transverse abdominal incision without surrounding erythema or underlying induration. STAVE HEWER: Minimal lochia present. Psychiatric: The patient is alert and oriented x3??with an appropriate mood and affect.?? Extremities: No pitting edema or rash. Neuro: CN 2-12 grossly intact. Extraocular movements grossly intact. 5/5 strength with shoulder abduction, arm flexion/extension, leg flexion. Sensation to light touch intact throughout upper and lower extremities bilaterally. Patient walks cautiously with assistance, otherwise normal gait. Assessment/Plan Assessment:??Patient is a 26 yo day 7 from primary presenting to [facility] with dizziness. Given patient's description of room spinning sensation worse with position changes, suspect benign paroxysmal positional vertigo (BPPV).??Given patient's difficulty walking without assistance and inability to care for at home due to symptoms, discussed recommendations for admission while patient undergoes work-up. Neurology consult placed, with recommendations made for obtaining CT Head without contrast overnight. Neurology also recommends symptomatic treatment with Compazine until they are able to evaluate her in the morning. Given normal orthostatic vital signs in [facility] and recent post-operative Hgb of 11.0, low suspicion for anemia as cause of patient's dizziness. However, if patient becomes hypotensive or orthostatic, could consider repeating CBC at that time. Inaddition, during recent admission, patient had multiple EKGs with normal sinus rhythm, so do not suspect arrhythmia as cause of dizziness at this time, especially given the constant nature of her symptoms with normal EKG. Electrolytes were also within normal limits during last admission. Of note, patient is meeting all other appropriate and post-operative milestones at this time. The patient is in agreement with plan for admission, CT imaging, and symptomatic treatment until evaluation by neurology in the morning. All questions answered and concerns addressed at this time. ?? Patient seen and discussed with Dr. Galeas, attending. ?? Vertigo (R42):? - Suspect BPPV, admit for work-up and symptomatic management - (p) Neurology consult in morning - (p) CT head without contrast per neurology recommendations - Compazine as needed for nausea - Re-eval overnight as needed - Activity: Ambulation with assistance ?? care following delivery (Z39.2):? - Routine care - Ibuprofen/Tylenol as needed for care - . Offer breast pump if needed during admission. ?? OB History History?(1,0,1,1)? # 1 ?Baby 1 ?Outcome Date:??11/28/2018?Outcome or Result:??Spontaneous ?Gest Age:??Unknown ? Outcome:? Sex:??-- ?? # 2 ?Baby 1 ?Outcome Date:??03/30/2022?Outcome or Result:??, low transverse ?Gest Age:??40 weeks 5 days ? Outcome:??Live ? Sex:??Male?Wt:?3242 g ? Complications:??None Active Problem List Active Problem List Anxiety and depression: (Medical) Managed by PCP/has weekly therapy session/not currently on medications. Pt reports will call PCP to discuss subsitute Rx for lexapro - as she would like to continue to take medication during . Chronic constipation: (Medical) Rh negative status during in first trimester: (Medical) Severe obesity: (Medical) Procedure/Surgical History delivery only;: 03/30/22 R Ovarian Cystectomy: 11/23/19 Esophagogastroduodenoscopy (EGD) with biopsies: 02/15/09 [facility] Teeth Extractions Home Medications Acetaminophen: 650 mg, By Mouth, Every 4 hours, (1-3), may give 325mg per patient preference and re-dose with 325mg within 4 hours, if needed. ?? Patient should only receive a total of 650mg of Acetaminophen every 4 hours. Famotidine: See Instructions, TAKE 1 TABLET BY MOUTH EVERYDAY AT BEDTIME Ibuprofen: 800 mg = 1 tablet, By Mouth, Every 8 hours, (4-6), may give 400mg per patient preferenceand re-dose with 400mg within 8 hours, if needed. ?? Patient should only receive a total of 800mg of Ibuprofen every 8 hours. Polyethylene Glycol 3350: 17 Gm, By Mouth, Daily, PRN (Constipation), dissolve in water before taking Allergies CeleXA??(Rash) Social History Alcohol Use: Past. 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 Grandmother: Cancer of breast; Pancreatic cancer Aunt: Hyperthyroidism * Adal SANCHEZ, Aga: PERFORM Event Display: History and Physical Hospital Authored Date: [id number] I have seen and evaluated this pt and agree with resident documentation.?? Head imaging ordered perneurology rec, plan for formal consultation in AM. ?? 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 leaving with significant other and her baby Discharge Information Case Management Discharge Plan : Case Management Discharge Plan Data 04/07/2022 16:01 EST Discharge Level of Care at Discharge Home/Prison/Foster Care 04/01/2022 16:11 EST Discharge Level of Care at Discharge Home/Prison/Foster Care * Jasmin Rehman RN: PERFORM, SIGN, VERIFY Event Display: Progress Note Hospital Authored Date: [id number] Patient: ROX WALTER Age: 26 years Sex: Female : 1995 Associated Diagnoses: None Author: Jasmin Rehman RN Patient s/p c/s 8 days ago. Presents with dizziness. Denies pain at this time, stating that Tylenoland Motrin helpful. Continue to monitor. Findings Problem Related to Alteration in Neurological : Alteration in Neurological Function/new 04/07/2022 8:00 EST Alteration in Neuro status Related to Other: vertigo/dizziness Goals & Outcomes, Neurological Lab studies/diagnostic tests within pt specific limits, Pt is safe with transfers & activities, Pt will be hemodynamically stable, Pt will be Neurologically stable, Pt will become pain free with appropriate intervention, Pt will maintain intact skin integrity,Pt will remain free from injury Interventions, Neurological Assess/monitor for abnormal posturing, Assess/monitor for gaze pattern/extraocular movements, Assess/monitor neurologic status, Assess/monitor VS per unit standards & prn, Call/Report variances in assessments to provider, Collaborate w/ provider to implement appropriate guidelines, Collaborate with Nutrition [facility] Goals/Interventions, Neurological Yes Neurological, Problem Start 04/05/2022 21:00 Reviewed plan with, Neurological Patient Patient Progression, Neurological Pt progressing according to plan . Discharge Information Case Management Discharge Plan : Case Management Discharge Plan Data 04/01/2022 16:11 EST Discharge Level of Care at Discharge Home/Prison/Foster Care * Mavis Hurd RN: PERFORM, SIGN, VERIFY Event Display: Progress Note Hospital Authored Date: [id number] Patient: ROX WALTER Age: 26 years Sex: Female : 1995 Associated Diagnoses: None Author: Mavis Hurd RN Pain controlled on current regimen. To alert RN if pain becomes unacceptable. Pt sts overnight of feeling weird and her heart is racing. VS were stable and reported to Dr. [place]. Reassurance and support given to patient. Pt declines 50 MG of PO Benadryl and wishes to turn over and get some rest. Instructed patient to let RN know if symptoms do not subside and/or worsening of symptoms. L/S CTA. OB stable, fundus firm - 2 with scant flow. Incision CDI. V/P. Note * Estelle Castle RN: PERFORM Event Display: Discharge/Transfer Note Hospital Authored Date: [id number] Nursing Discharge Note Entered On: 04/07/2022 16:01 EST Performed On: 04/07/2022 16:01 EST by Estelle Castle RN Nursing Discharge Note 2 Discharge Time : 04/07/2022 16:01 EST Discharge Level of Care at Discharge : Home/Prison/Foster Care Patient Left Unit Via : Ambulatory Patient Accompanied Off Unit with : Significant other DC Instructions Provided & Signed by Pt : Yes Patient Understands D/C Instructions : Yes Patient Instructions Discharge Signed : Yes Did Pt have Specialty Bed or Wound Vac : No Corrine MATTHEWS, Estelle Ramos - 04/07/2022 16:01 EST * Florencia Gibson MD: PERFORM Event Display: Discharge/Transfer Note Hospital Authored Date: [id number] Patient: ??ROX WALTER ? Age:??26 Years?Sex:??Female?:??1995?? Admit Date Admission Date: 04/05/2022 Discharge Date 04/07/2022 Discharge Diagnoses care following delivery, 04/05/2022 Vertigo, 04/05/2022 [facility] Course Patient is a 26 yo day??6 from primary presenting to [facility] with dizziness with concern for benign paroxysmal positional vertigo (BPPV). Given patient's difficulty walking without assistance and inability to care for at home due to symptoms, discussed recommendations for admission while patient undergoes work-up. During admission, neurology was consulted with recommendations for CT head and MRI/MRA/MRV Head and Neck, with all imaging overall unremarkable. Per neurology, patient's vertigo consistent with peripheral vertigo. The patient is otherwise doing clinically well and is appropriate for discharge home on day??8 pending physical therapy consult and final neurology recommendations regarding symptomatic management of vertigo. ?? On day of discharge; In to see patient for morning rounds. Patient resting in bed, reports she is still feeling dizzy, but she has noticed it is becoming less severe. She still needs to hold onto something when walking, and physical therapy has not yet been in to evaluate her. Her nausea is alsoslightly improved. Pain continues to be well controlled, and her bleeding has remained light. Baby and partner currently visiting a friend, but patient reports they are coming back this morning. She is hoping to be able to go home today now that imaging has all returned normal. Objective/Physical Exam on Day of Discharge Vitals & Measurements T:??98.1?F ?? NJ:??57?? RR:??18?? RR:??18?? BP:??99/57?? BP:??107/72(Sitting)?? BP:??99/69(Standing)?? BP:??109/57(Supine)?? SpO2:??99%?? HT:??164??cm?? WT:??102??kg?? BMI:??37.92?? General: Well-appearing woman in no acute distress. Resting in bed. Lung: Normal work of breathing, able to speak in complete sentences. Abdomen: Soft, non-distended,??minimally??tender. Fundus firm and contracted below umbilicus. STAVE HEWER: Minimal lochia present. Psychiatric: The patient is alert and oriented x3??with an appropriate mood and affect.?? Extremities: No pitting edema or rash. Assessment/Plan Assessment:??Patient is a 26 yo day??8 from primary currently admittedfor work-up of dizziness. Patient is currently being followed by neurology. CT headed without contrast was normal, and patient underwent Head/Neck MRI/MRA/MRV overnight, which was also normal. Given normal imaging, suspect peripheral vertigo. Patient otherwise hemodynamically stable and doing well post-operatively. She is still awaiting physical therapy consult and final neurology recommendationsregarding management of patient's vertigo, but anticipate discharge later this afternoon. All questions answered and concerns addressed at this time. ?? Vertigo (R42):? - Suspect BPPV - CT head without contrast 04/05/22: Normal - MRI/MRA/MRV Head/Neck 04/06/22: Normal - s/p Neurology consult -??Zofran as needed for nausea (Patient did not tolerate Compazine) - Re-eval as needed - Activity: Ambulation with assistance due to dizziness (p) Physical therapy consult ?? care following delivery (Z39.2):? - Routine care - Ibuprofen/Tylenol as needed for care - . Offer breast pump if needed during admission. ?? Future Appointments Sunday 3:00 PM EST ?? With: Daniela Ramirez CNM Where: [facility] [address] [place] [address]- Discharge Medications ???Acetaminophen (acetaminophen 325 mg oral tablet)???Famotidine (famotidine 20 mg oral tablet)???Ibuprofen (ibuprofen 800 mg oral tablet)???Polyethylene Glycol 3350 (MiraLax oral powder for reconstitution) Immunizations during Hospitalization Vaccine Date Status Commentsinfluenza virus vaccine, inactivated - Not Given Patient Refuses tetanus/diphtheria/pertussis, acel(Tdap) 12/27/2021 Given * Saba Huff MD: PERFORM Event Display: Discharge/Transfer Note Hospital Authored Date: [id number] * Florencia Gibson MD: PERFORM Event Display: Discharge/Transfer Note Hospital Authored Date: [id number] Per neurology, patient's symptoms consistent with peripheral vertigo given normal head imaging and symptoms. They recommend symptomatic treatment and outpatient vestibular rehab. Patient accepts zofran prescription, which will be sent to her pharmacy. She declines Meclizine at this time given concern for possible decrease in milk supply due to anti-cholinergic properties. Message sent to [facility] to send referral to physical therapy for vestibular rehab. Patient was instructed to contact her PCP to follow-up regarding vertigo, and she was given strict return precautions for warning signs/symptoms. The patient is currently stable for discharge home. She was in agreement with this plan and had the opportunity to ask questions. Plan for discharge discussed with Dr. Huff, attending. * Corrine MATTHEWS, Estelle Ramos: PERFORM Event Display: Patient Education/Instruction Authored Date: [id number] Inpatient Adult Discharge Instructions [address] [address] Name: ROX WALTER : 1995 Visit: 04/05/2022 13:58:00 Current Date: 04/07/2022 15:46 Account: [id number] Inpatient Adult Discharge Instructions We would like to thank you for allowing us to assist you with your healthcare needs. The following includes patient education materials and information regarding your injury/illness. Our entire staffstrives to provide an excellent experience for our patients and their families. PLEASE ENSURE YOU FOLLOW-UP PER THE INSTRUCTIONS BELOW! ?? YOUR OPINION IS IMPORTANT TO US! Please complete the survey you may receive by mail or email. Your feedback will be used to make improvements to the healthcare experiences of our patients and their families. Surveys are administered by [employer] ?? If further treatment with your primary care physician or another doctor is recommended, it is important for you to keep the appointment. Call your primary care physician or return to the Emergency Department immediately if your condition worsens, fails to improve, or new symptoms develop. If you need to find a doctor, you can call [facility] for a referral at [phone] or toll free at [phone] or log in to [email or web address].. ?? You can view and manage your care through the patient portal or by using a health care sourav of your choosing. [employer] is a website that allows you to securely view your medical information including your hospital discharge summary, office visit summaries, medications and follow-up visits. You can also request appointments, renew medications, and request access to your medical information using a health care sourav of your choosing, or just ask a question. You can enroll at [email or web address] or register during your next office visit. You have been discharged from [facility], Patient Care Unit: WIN2. If you have any questions regarding these instructions after you leave, please call us and we will be happy to assist you. [facility] Your Care Team Attending Physician Mason JOHNSTON, Sher Consulting Providers Daria JOHNSTON, Saba Guallpa Discharging Providers Florencia Gibson MD Reason for Admission Post c/s 03/30, home 04/01/22, pt with continued vertigo for past 1 1/2-2 weeks, pain to right ear, pain with turning head or lying on right side, and increases dizziness. c/o nausea and dizziness. Your Diagnosis Vertigo care following delivery Tests Performed Below is a partial list of the tests performed during your hospitalization. You may have had other tests and procedures not included in this list. Please discuss all test results with your provider. Brain MRI W/O Contrast CT Head/Brain W/O Contrast MRA Head W+W/O Contrast MRA Neck W/ Contrast Advance Directive Health Care Proxy on File No Patient is <18 years old No qualifying data available. Discharge Vitals Temperature: 98.1 DegF Height: 164 cm Pulse Rate: 57 bpm Weight: 102 kg Respiratory Rate: 18 br/min Body Mass Index:??37.92 kg/m2??Critical Respiratory Rate: 18 br/min Body surface area: 2.16 Systolic Blood Pressure: 99 mm Hg ?? Diastolic Blood Pressure: 57 mm Hg ?? Oxygen Saturation: 99 % ?? Studies Pending All tests and labs ordered during this hospital stay have been completed unless listed below. Please discuss all pending results with your provider listed above in these instructions. ?? COVID-19 (2019 Novel Coronavirus) PCR What to do next Instructions From Your Doctor Discharge Orders Scheduled Follow-Up Appointments Sunday 3:00 PM EST ?? With: Daniela Ramirez CNM Where: [facility] [address] [place] [id number]- You Need to Schedule the Following Appointments Follow Up with??other When?? Why: you will be call??for an ??an appointment for vestibular rehab Where: Discharge Medications SABAROX JEFFERY :1995 Visit Date:04/05/2022 Medications: Please continue your medications until treatment is completed or stopped by your provider. Medications not listed below should be discontinued. Discuss any questions related to medications with your provider. What How Much When Instructions Next Dose New Ondansetron (ondansetron 4 mg oral tablet, disintegrating) 4 Milligram Oral Every 6 hours as needed for Nausea & Vomiting Refills: 1 Pickup at [facility]/pharmacy #[id number] Unchanged Acetaminophen (acetaminophen 325 mg oral tablet) 650 Milligram Oral Every 4 hours (1-3), may give 325mg per patient preference and re-dose with 325mg within 4 hours, if needed. ?? Patient should only receive a total of 650mg of Acetaminophen every 4 hours. ?? Unchanged Famotidine (famotidine 20 mg oral tablet) See instructions TAKE 1 TABLET BY MOUTH EVERYDAY AT BEDTIME ?? Unchanged Ibuprofen (ibuprofen 800 mg oral tablet) 1 tab(s) Oral Every 8 hours (4-6), may give 400mg per patient preference and re-dose with 400mg within 8 hours, if needed. ?? Patient should only receive a total of 800mg of Ibuprofen every 8 hours. ?? Unchanged Polyethylene Glycol 3350 (MiraLax oral powder for reconstitution) 17 gram Oral Daily as needed for Constipation dissolve in water before taking ?? Pharmacy Information [facility]/pharmacy #[id number]: [address] [place] [phone] Test Results Below is a partial list of the most recent Laboratory test results done prior to this discharge. You may have had other tests and procedures not included in this list. Please discuss all test resultswith your provider. Immunizations This Visit Not Given Vaccine Commentsinfluenza virus vaccine, inactivated Patient Refuses Allergies (NKA means No Known Allergies) CeleXA??(Rash) Problems Active Problems??(4) Anxiety and depression?? Chronic constipation?? Rh negative status during in first trimester?? Severe obesity (BMI 35.0-39.9) with comorbidity?? Education Materials Below is the list of Educational Leaflet Providered with your Discharge Instructions. Dizziness (Vertigo) and Balance Problems: Staying Safe?? Valuables and Belongings I fully understand and agree that [facility] accepts no responsibility for all my personal property including clothing, toilet articles, radios, jewelry, dentures, hearing aids, rings, money, or any other property that is in my possession or is brought to me after admission. I understand certain valuables may be placed in a hospital safe for a short period of time. I understand that the hospital is not liable for loss or damage due to accident, fire, or other natural occurrence while said property is in the safe. I accept full responsibility for any personal property that I keep with me, and will not hold the hospital responsible in case of loss or disappearance. I acknowledge that i have been encouraged to send valuables and belongings home. ? Other Discharge Information ? Pulmonary Rehab Status?? Pulmonary Rehab Discharge Status?? Respiratory Rate: 18 br/min Respiratory Rate: 18 br/min ? Common Emergency Awareness Tips IS IT A STROKE? Act FAST and Check for these signs: FACE Does the face look uneven? ARM Does one arm drift down? SPEECH Does their speech sound strange? TIME Call at any sign of stroke ?? Heart Attack Signs Chest discomfort: Most heart attacks involve discomfort in the center of the chest and lasts more than a few minutes, or goes away and comes back. It can feel like uncomfortable pressure, squeezing, fullness or pain. Discomfort in upper body: Symptoms can include pain or discomfort in one or both arms, back, neck, jaw or stomach. Shortness of breath: With or without discomfort. Other signs: Breaking out in a cold sweat, nausea, or lightheaded. Remember, MINUTES DO MATTER. If you experience any of these heart attack warning signs, call to get immediate medical attention! ?? Smoking can increase your chances of developing chronic health problems and can cause harmful effects to other family members in your house. If you smoke, you are strongly encouraged to quit. Please call [facility] at [phone] or [phone] ([phone]) or log in to [email or web address] for referrals to smoking cessation programs. ?? The National Suicide Prevention Hotline is available 02/10 if you or someone you know needs to find a reason to keep living. By calling 9-792-464-[place] (2288) you'll be connected to a skilled, trained counselor at a crisis center in your area. INPATIENT DISCHARGE INSTRUCTIONS SIGNATURE PAGE ROX WALTER Location:[facility] Registration Date and Time:04/05/2022 13:58 EST Primary Care Physician: Sara JOHNSTON , [facility], I ROX WALTER, have received the above patient education materials/instructions and have verbalized understanding. If ambulance or transport services are being used I further acknowledge being given a choice of service. ?? If you need to contact me, please call me at this number: . Patient/Offensive Coordinator Name: Patient/Offensive Coordinator Signature: Relationship to Patient: Witness Name/Signature: Date: * Estelle Castle RN: PERFORM Event Display: Patient Education/Instruction Authored Date: [id number] Inpatient Adult Discharge Instructions [address] [address] Name: ROX SABA : 1995 Visit: 04/05/2022 13:58:00 Current Date: 04/07/2022 15:45 Account: [id number] Inpatient Adult Discharge Instructions We would like to thank you for allowing us to assist you with your healthcare needs. The following includes patient education materials and information regarding your injury/illness. Our entire staffstrives to provide an excellent experience for our patients and their families. PLEASE ENSURE YOU FOLLOW-UP PER THE INSTRUCTIONS BELOW! ?? YOUR OPINION IS IMPORTANT TO US! Please complete the survey you may receive by mail or email. Your feedback will be used to make improvements to the healthcare experiences of our patients and their families. Surveys are administered by [employer] ?? If further treatment with your primary care physician or another doctor is recommended, it is important for you to keep the appointment. Call your primary care physician or return to the Emergency Department immediately if your condition worsens, fails to improve, or new symptoms develop. If you need to find a doctor, you can call [facility] for a referral at [phone] or toll free at [phone]) or log in to [email or web address].. ?? You can view and manage your care through the patient portal or by using a health care sourav of your choosing. [employer] is a website that allows you to securely view your medical information including your hospital discharge summary, office visit summaries, medications and follow-up visits. You can also request appointments, renew medications, and request access to your medical information using a health care sourav of your choosing, or just ask a question. You can enroll at [email or web address] or register during your next office visit. You have been discharged from [facility], Patient Care Unit: WIN2. If you have any questions regarding these instructions after you leave, please call us and we will be happy to assist you. [facility] Your Care Team Attending Physician Mason JOHNSTON, hSer Consulting Providers Daria JOHNSTON, Saba Guallpa Discharging Providers Paige JOHNSTON, Florencia Reason for Admission Post c/s 03/30, home 04/01/22, pt with continued vertigo for past 1 1/2-2 weeks, pain to right ear, pain with turning head or lying on right side, and increases dizziness. c/o nausea and dizziness. Your Diagnosis Vertigo care following delivery Tests Performed Below is a partial list of the tests performed during your hospitalization. You may have had other tests and procedures not included in this list. Please discuss all test results with your provider. Brain MRI W/O Contrast CT Head/Brain W/O Contrast MRA Head W+W/O Contrast MRA Neck W/ Contrast Advance Directive Health Care Proxy on File No Patient is <18 years old No qualifying data available. Discharge Vitals Temperature: 98.1 DegF Height: 164 cm Pulse Rate: 57 bpm Weight: 102 kg Respiratory Rate: 18 br/min Body Mass Index:??37.92 kg/m2??Critical Respiratory Rate: 18 br/min Body surface area: 2.16 Systolic Blood Pressure: 99 mm Hg ?? Diastolic Blood Pressure: 57 mm Hg ?? Oxygen Saturation: 99 % ?? Studies Pending All tests and labs ordered during this hospital stay have been completed unless listed below. Please discuss all pending results with your provider listed above in these instructions. ?? COVID-19 (2019 Novel Coronavirus) PCR What to do next Instructions From Your Doctor Discharge Orders Scheduled Follow-Up Appointments Sunday 3:00 PM EST ?? With: Daniela Ramirez CNM Where: [facility] [address] [place] [address]- You Need to Schedule the Following Appointments Follow Up with??other When?? Why: you will be call??for an ??an appointment for vestibular rehab Where: Discharge Medications ROX WALTER :1995 Visit Date:04/05/2022 Medications: Please continue your medications until treatment is completed or stopped by your provider. Medications not listed below should be discontinued. Discuss any questions related to medications with your provider. What How Much When Instructions Next Dose New Ondansetron (ondansetron 4 mg oral tablet, disintegrating) 4 Milligram Oral Every 6 hours as needed for Nausea & Vomiting Refills: 1 Pickup at [facility]/pharmacy #[id number] Unchanged Acetaminophen (acetaminophen 325 mg oral tablet) 650 Milligram Oral Every 4 hours (1-3), may give 325mg per patient preference and re-dose with 325mg within 4 hours, if needed. ?? Patient should only receive a total of 650mg of Acetaminophen every 4 hours. ?? Unchanged Famotidine (famotidine 20 mg oral tablet) See instructions TAKE 1 TABLET BY MOUTH EVERYDAY AT BEDTIME ?? Unchanged Ibuprofen (ibuprofen 800 mg oral tablet) 1 tab(s) Oral Every 8 hours (4-6), may give 400mg per patient preference and re-dose with 400mg within 8 hours, if needed. ?? Patient should only receive a total of 800mg of Ibuprofen every 8 hours. ?? Unchanged Polyethylene Glycol 3350 (MiraLax oral powder for reconstitution) 17 gram Oral Daily as needed for Constipation dissolve in water before taking ?? Pharmacy Information [facility]/pharmacy #[id number]: [address] [place] [phone] Test Results Below is a partial list of the most recent Laboratory test results done prior to this discharge. You may have had other tests and procedures not included in this list. Please discuss all test resultswith your provider. Immunizations This Visit Not Given Vaccine Commentsinfluenza virus vaccine, inactivated Patient Refuses Allergies (NKA means No Known Allergies) CeleXA??(Rash) Problems Active Problems??(4) Anxiety and depression?? Chronic constipation?? Rh negative status during in first trimester?? Severe obesity (BMI 35.0-39.9) with comorbidity?? Education Materials Below is the list of Educational Leaflet Providered with your Discharge Instructions. Dizziness (Vertigo) and Balance Problems: Staying Safe?? Valuables and Belongings I fully understand and agree that [facility] accepts no responsibility for all my personal property including clothing, toilet articles, radios, jewelry, dentures, hearing aids, rings, money, or any other property that is in my possession or is brought to me after admission. I understand certain valuables may be placed in a hospital safe for a short period of time. I understand that the hospital is not liable for loss or damage due to accident, fire, or other natural occurrence while said property is in the safe. I accept full responsibility for any personal property that I keep with me, and will not hold the hospital responsible in case of loss or disappearance. I acknowledge that i have been encouraged to send valuables and belongings home. ? Other Discharge Information ? Pulmonary Rehab Status?? Pulmonary Rehab Discharge Status?? Respiratory Rate: 18 br/min Respiratory Rate: 18 br/min ? Common Emergency Awareness Tips IS IT A STROKE? Act FAST and Check for these signs: FACE Does the face look uneven? ARM Does one arm drift down? SPEECH Does their speech sound strange? TIME Call at any sign of stroke ?? Heart Attack Signs Chest discomfort: Most heart attacks involve discomfort in the center of the chest and lasts more than a few minutes, or goes away and comes back. It can feel like uncomfortable pressure, squeezing, fullness or pain. Discomfort in upper body: Symptoms can include pain or discomfort in one or both arms, back, neck, jaw or stomach. Shortness of breath: With or without discomfort. Other signs: Breaking out in a cold sweat, nausea, or lightheaded. Remember, MINUTES DO MATTER. If you experience any of these heart attack warning signs, call to get immediate medical attention! ?? Smoking can increase your chances of developing chronic health problems and can cause harmful effects to other family members in your house. If you smoke, you are strongly encouraged to quit. Please call [facility] at [phone] or [phone] ([phone]) or log in to [email or web address] for referrals to smoking cessation programs. ?? The National Suicide Prevention Hotline is available 02/10 if you or someone you know needs to find a reason to keep living. By calling 4-211-584[facility]onge (1637) you'll be connected to a skilled, trained counselor at a crisis center in your area. INPATIENT DISCHARGE INSTRUCTIONS SIGNATURE PAGE SABAROX JEFFERY Location:[facility] Registration Date and Time:04/05/2022 13:58 EST Primary Care Physician: Sara JOHNSTON , [facility], I ROX WALTER, have received the above patient education materials/instructions and have verbalized understanding. If ambulance or transport services are being used I further acknowledge being given a choice of service. ?? If you need to contact me, please call me at this number: . Patient/Offensive Coordinator Name: Patient/Offensive Coordinator Signature: Relationship to Patient: Witness Name/Signature: Date: * Corrine MATTHEWS, Estelle Ramos: PERFORM Event Display: Patient Education Leaflets Authored Date: [id number] Dizziness (Vertigo) and Balance Problems: Staying Safe ?? 87133 Dizziness (Vertigo) and Balance Problems: Staying Safe Falls or accidents can lead to pain, broken bones, a hospital stay, and a fear of future falls. Protect yourself and others by preparing for episodes. Simple steps can help you stay safe at home and wherever you go. Lighting Replace burned-out light bulbs to keep your home safe and well lit. Keep all areas well lit. This helps your eyes send the right signals to the brain. It also makes you less likely to trip and fall. If bright lights make symptoms worse, dim the lights or lie in a dark room until the dizziness passes. Then turn the lights back to their normal level. Tips: ??? Keep a flashlight by the bed. ??? Place nightlights in bathrooms and hallways. ??? Replace burned-out bulbs. Or have someone replace them for you. ?? Preventing falls To reduce your risk of falling: ??? Get out of bed or up from a??chair slowly. ??? Wear low-heeled shoes that fit properly and have slip-resistant soles. ??? Remove throw rugs. Clear clutter from walkways. ??? Use handrails on stairs. Have handrails installed or adjusted if needed. ??? Install grabbars in the bathroom. Don't use towel racks for balance. ??? Use a shower stool. Also put adhesive strips in the shower or on the tub floor. ??? Sit down to put on clothes or lace up shoes ?? Going out With a little time and preparation, you can get around safely. Tips: ??? Use a cane or walking aid if needed. ??? Give yourself plenty of time in case you start to get dizzy. ??? Ask your healthcare provider what type of exercise is safe for your condition. ??? Be patient. If an activity, such as walking through a crowded shop, causes you stress, you may not be ready for it yet. ?? Driving If you become dizzy or disoriented while driving, you could hurt yourself and others. That's why it's best not to drive until symptoms have gone away. In some cases, your license may be temporarily held until it's safe for you to drive again. For safety: ??? Ask a friend to drive for you. ??? Take public transportation. ??? Walk to stores and other places when you can. ?? Support Don't be afraid to ask for help running errands, cooking meals, and exercising. Whether it's a friend, loved one, neighbor, or stranger on the street, a little help can make a world of difference. Ask your healthcare provider for a list of community resources if you need help maintaining your independence at home. ?? Last Reviewed Date: 2021 ?? 5823-2524 [employer]. All rights reserved. This information is not intended as a substitute for professional medical care. Always follow your healthcare professional's instructions. ?? * Ajay Salter MD: VERIFY Ajay Salter MD: VERIFY Event Display: Result: Authored Date: [id number] MRI Brain W/O Contrast, MRA Head W+W/O Contrast, MRA Neck W/ Contrast INDICATION: Reason: Vertigo; Clinical Question(s): Infarction; Order Comment: Please see Reference Text for complete list of contraindications Infarction TECHNIQUE: MRI of the brain was performed without contrast utilizing sagittal T1, axial T2, axial FLAIR, axial SWAN, and axial DWI sequences. A noncontrast 3- D [id number]-[id number] MRA of the head was performed. A contrast-enhanced 3-D MRA of the neck and MRV of the head were performed after the administration of 20 cc of IV Clariscan. Both the source images and angiographic/venographic reconstructionswere reviewed. COMPARISON: CT scan of the head 04/05/2022 FINDINGS: MRI OF THE BRAIN BRAIN and EXTRA-AXIAL SPACES: The flow voids through the [place] are maintained, and thereis no restricted diffusion or abnormal susceptibility artifact. The brainstem and cerebellum are unremarkable. The brain parenchyma is normal in signal. The ventricles are normal in size. No mass effect or extra-axial fluid collection. The cervicomedullary junction is unremarkable. EXTRACRANIAL SOFT TISSUES: Orbits are unremarkable. Paranasal sinuses and mastoids are unremarkable. BONES: Marrow signal is preserved. MRA OF THE NECK Common innominate and left common carotid artery origin. The origins of the great vessels arising from the aortic arch are widely patent, and the subclavian arteries are patent. The common carotid arteries and cervical internal carotid arteries are patent (0% stenosis by NASCET criteria). The left vertebral artery is dominant. The extracranial vertebral arteries are patent. MRA OF THE HEAD The intracranial internal carotid arteries are patent. The visualized anterior and middle cerebral artery branches are unremarkable. The anterior communicating artery and MCA bifurcations are unremarkable. The left vertebral artery is dominant. The PICA origins are patent. The intracranial vertebral arteries and basilar artery are patent. The superior cerebellar arteries are patent. type left posterior cerebral artery. A smaller right posterior communicating arteries present. The visualized posterior cerebral arteries are unremarkable. MR VENOGRAM OF THE HEAD The superior sagittal, transverse, and sigmoid sinuses are patent. The paired internal cerebral veins, straight sinus, and vein of Santos are patent. No abnormal intracranial enhancement is noted. IMPRESSION: 1. Normal noncontrast MRI examination of the brain. No acute infarct or brainstem signal abnormality. 2. Unremarkable MRA of the head and neck. 3. No evidence of dural venous sinus thrombosis. WSN: [id number] Ordering Physician: Kenroy Celestin Dictated By: Ajay Salter MD Dictated Date/Time: 04/07/22 8:02 am Reviewed By: Ajay Salter MD Signed By: Ajay Salter MD Signed Date/Time: 04/07/22 8:02 am Transcribed By: VICKI Transcribed Date/Time: 04/07/22 7:45 am MRA Head vessels WO and W contrast IV * Ajay Salter MD: VERIFY Ajay Salter MD: VERIFY Event Display: Result: Authored Date: [id number] MRI Brain W/O Contrast, MRA Head W+W/O Contrast, MRA Neck W/ Contrast INDICATION: Reason: Vertigo; Clinical Question(s): Infarction; Order Comment: Please see Reference Text for complete list of contraindications Infarction TECHNIQUE: MRI of the brain was performed without contrast utilizing sagittal T1, axial T2, axial FLAIR, axial SWAN, and axial DWI sequences. A noncontrast 3- D [id number]-mk-[id number] MRA of the head was performed. A contrast-enhanced 3-D MRA of the neck and MRV of the head were performed after the administration of 20 cc of IV Clariscan. Both the source images and angiographic/venographic reconstructionswere reviewed. COMPARISON: CT scan of the head 04/05/2022 FINDINGS: MRI OF THE BRAIN BRAIN and EXTRA-AXIAL SPACES: The flow voids through the [place] are maintained, and thereis no restricted diffusion or abnormal susceptibility artifact. The brainstem and cerebellum are unremarkable. The brain parenchyma is normal in signal. The ventricles are normal in size. No mass effect or extra-axial fluid collection. The cervicomedullary junction is unremarkable. EXTRACRANIAL SOFT TISSUES: Orbits are unremarkable. Paranasal sinuses and mastoids are unremarkable. BONES: Marrow signal is preserved. MRA OF THE NECK Common innominate and left common carotid artery origin. The origins of the great vessels arising from the aortic arch are widely patent, and the subclavian arteries are patent. The common carotid arteries and cervical internal carotid arteries are patent (0% stenosis by NASCET criteria). The left vertebral artery is dominant. The extracranial vertebral arteries are patent. MRA OF THE HEAD The intracranial internal carotid arteries are patent. The visualized anterior and middle cerebral artery branches are unremarkable. The anterior communicating artery and MCA bifurcations are unremarkable. The left vertebral artery is dominant. The PICA origins are patent. The intracranial vertebral arteries and basilar artery are patent. The superior cerebellar arteries are patent. type left posterior cerebral artery. A smaller right posterior communicating arteries present. The visualized posterior cerebral arteries are unremarkable. MR VENOGRAM OF THE HEAD The superior sagittal, transverse, and sigmoid sinuses are patent. The paired internal cerebral veins, straight sinus, and vein of Santos are patent. No abnormal intracranial enhancement is noted. IMPRESSION: 1. Normal noncontrast MRI examination of the brain. No acute infarct or brainstem signal abnormality. 2. Unremarkable MRA of the head and neck. 3. No evidence of dural venous sinus thrombosis. WSN: [id number] Ordering Physician: Kenroy Celestin Dictated By: Ajay Salter MD Dictated Date/Time: 04/07/22 8:02 am Reviewed By: Ajay Salter MD Signed By: Ajay Salter MD Signed Date/Time: 04/07/22 8:02 am Transcribed By: VICKI Transcribed Date/Time: 04/07/22 7:45 am MR Brain WO contrast * Ajay Salter MD: VERIFY Ajay Salter MD: VERIFY Event Display: Result: Authored Date: [id number] MRI Brain W/O Contrast, MRA Head W+W/O Contrast, MRA Neck W/ Contrast INDICATION: Reason: Vertigo; Clinical Question(s): Infarction; Order Comment: Please see Reference Text for complete list of contraindications Infarction TECHNIQUE: MRI of the brain was performed without contrast utilizing sagittal T1, axial T2, axial FLAIR, axial SWAN, and axial DWI sequences. A noncontrast 3- D [id number] MRA of the head was performed. A contrast-enhanced 3-D MRA of the neck and MRV of the head were performed after the administration of 20 cc of IV Clariscan. Both the source images and angiographic/venographic reconstructionswere reviewed. COMPARISON: CT scan of the head 04/05/2022 FINDINGS: MRI OF THE BRAIN BRAIN and EXTRA-AXIAL SPACES: The flow voids through the [place] are maintained, and thereis no restricted diffusion or abnormal susceptibility artifact. The brainstem and cerebellum are unremarkable. The brain parenchyma is normal in signal. The ventricles are normal in size. No mass effect or extra-axial fluid collection. The cervicomedullary junction is unremarkable. EXTRACRANIAL SOFT TISSUES: Orbits are unremarkable. Paranasal sinuses and mastoids are unremarkable. BONES: Marrow signal is preserved. MRA OF THE NECK Common innominate and left common carotid artery origin. The origins of the great vessels arising from the aortic arch are widely patent, and the subclavian arteries are patent. The common carotid arteries and cervical internal carotid arteries are patent (0% stenosis by NASCET criteria). The left vertebral artery is dominant. The extracranial vertebral arteries are patent. MRA OF THE HEAD The intracranial internal carotid arteries are patent. The visualized anterior and middle cerebral artery branches are unremarkable. The anterior communicating artery and MCA bifurcations are unremarkable. The left vertebral artery is dominant. The PICA origins are patent. The intracranial vertebral arteries and basilar artery are patent. The superior cerebellar arteries are patent. type left posterior cerebral artery. A smaller right posterior communicating arteries present. The visualized posterior cerebral arteries are unremarkable. MR VENOGRAM OF THE HEAD The superior sagittal, transverse, and sigmoid sinuses are patent. The paired internal cerebral veins, straight sinus, and vein of Santos are patent. No abnormal intracranial enhancement is noted. IMPRESSION: 1. Normal noncontrast MRI examination of the brain. No acute infarct or brainstem signal abnormality. 2. Unremarkable MRA of the head and neck. 3. No evidence of dural venous sinus thrombosis. WSN: [id number] Ordering Physician: Kenroy Celestin Dictated By: Ajay Salter MD Dictated Date/Time: 04/07/22 8:02 am Reviewed By: Ajay Salter MD Signed By: Ajay Salter MD Signed Date/Time: 04/07/22 8:02 am Transcribed By: VICKI Transcribed Date/Time: 04/07/22 7:[address] Head WO contrast * BHSPowerscribe , CIS S: TRANSCRIBE Carrington Holland MD S: VERIFY Nalini Christianson MD: SIGN Event Display: Result: Authored Date: [id number] CT Head/Brain W/O Contrast INDICATION: Reason: Vertigo; Clinical Question(s): Structural vascular cause of vertigo TECHNIQUE: Noncontrast head CT using axial technique and reconstructed in axial and coronal planes.Iterative reconstruction techniques are used to optimize dose and image quality. CTDIvol Head: 45.70 mGy, DLP Head: 773 mGy*cm. COMPARISON: CT head dated 04/17/2013 FINDINGS: Shuttle Veneering Supervisor view findings, lines and tubes: None. BRAIN AND EXTRA-AXIAL SPACES: No parenchymal hemorrhage, midline shift, or mass effect. Dubose-white matter differentiation is wellpreserved. No acute infarct. Negative insular ribbon and hyperdense vessel signs. Ventricles, sulci, and basilar cisterns are normal. No white matter lesions. No subarachnoid hemorrhage. No subdural or epidural collection. CALVARIUM, SKULL BASE, AND SOFT TISSUES: No fractures or suspicious bony lesions. The paranasal sinuses and mastoid air cells are clear. Visualized orbits and globes are intact. The extracranial soft tissues are unremarkable. IMPRESSION: Normal. I have personally reviewed the images and I agree with this report. WSN: [id number] Ordering Physician: Florencia Gibson Dictated By: Nalini Christianson MD Dictated Date/Time: 04/05/22 9:13 pm Reviewed By: Carrington Holland MD Signed By: Carrington Holland MD Signed Date/Time: 04/05/22 9:18 pm Transcribed By: VICKI Transcribed Date/Time: 04/05/22 9:10 pm Patient Care team information Care Team Personnel Name: Hali Moore RN Position: [facility] Nurse Member Role: Primary Care Nurse Name: Jacqueilne Sales RN Position: [facility] RN Member Role: Primary Care Nurse Name: Jasmin Rehman RN Position: [facility] OB RN Member Role: Patient Care Provider Care Team Related Persons Name: NOÉ GUILLAUME Address: [address] [place] [address] Name: ISHA MERCADO Address: [employer] Address: [address] [place] [address] Name: HUSEYIN MERCADO Address: [address] [place] [address] Name: SHANON IZAGUIRRE Address: [address] [place] [address]
--- OUTSIDE RECORDS SUMMARY | 2023-01-18 06:17 | XMS_ITS | Continuity of Care Document ---
Author Name Unknown Organization [facility] Address [address] [place] [address]- Care Team Providers Care Bulb Planter Name Role Phone Sara JOHNSTON, Elviraclif [id number] Date[facility]s): 03/25/22 - 04/30/[address] [address]- Attending Physician: Meenu Newell CNM Admitting Physician: Meenu Newell CNM Referring Physician: Meenu Newell CNM Allergies, Adverse Reactions, Alerts Substance Reaction Severity [...] 90 tablet, Refills 0, Tot. Refills 0, Saemera... Start Date: 04/01/22 Status: Ordered famotidine 20 mg oral tablet See Instructions, TAKE 1 TABLET BY MOUTH EVERYDAY AT BEDTIME, # 30 tablet, Refills 1, Maintenance, 02/14/22 6:30:00 EST, Instructions Replace Required Details, Route to Pharmacy Electronically, [id number], 164, cm, 02/09/22 11:07:00 EST, Height,... Start Date: 02/14/22 Status: Ordered ibuprofen 800 mg oral tablet 800 mg, [...] Refills, Maintenance, 08/13/21 12:58:00 EDT, REC Powder, [facility]/pharmacy #[id number], Partial fill upon patient requestif the prescription is for a schedule II opioid kat... Start Date: 08/13/21 Status: Ordered ondansetron 4 mg oral tablet, disintegrating = 4 mg, By Mouth, Every 6 hours, PRN Nausea & Vomiting, # 30 tablet, 1 Refills, Maintenance, 04/07/22 15:04:00 EST, Tablet, [facility]/pharmacy #[id number], Partial fill upon patient request if the prescription is for a schedule II opioid drug., 164, cm, 04/07/22... Start Date: 04/07/22 Status: Ordered Problem List Condition Confirmation Course Effective Dates [...] to continue to take medication during . Social History Social History Type Response Smoking Status Former smoker, quit more than 30 days ago entered on: 08/16/21 Sex Patient Care team information Care Team Personnel Name: Hali Moore RN Position: [facility] Nurse Member Role: Primary Care Nurse Name: Jacqueline Sales RN Position: [facility] RN Member Role: Primary Care Nurse Care Team Related Persons Name: NOÉ GUILLAUME Address: [address] [place] [address] Name: ISHA MERCADO Address: [employer] Address: home [address] [place] [address] Name: HUSEYIN MERCADO Address: home [address] [place] [address] Name: SHANON IZAGUIRRE Address: home [address] [place] [address]
--- OUTSIDE RECORDS SUMMARY | 2023-01-18 06:17 | XMS_ITS | Continuity of Care Document ---
Author Name Unknown Organization [facility] Address [address] [place] [address]- Care Team Providers Care Expansion Joint Finisher Name Role Phone Sara JOHNSTON, Michelle [id number] Date(s): 10/04/20 - 11/03/[address] [address]- Attending Physician: Anay Coronel Admitting Physician: Anay Coronel Referring Physician: AdmtrAnay Allergies, Adverse Reactions, Alerts Substance Reaction Severity Status Strawberries itchy throat Active CeleXA Active Medications Aviane 100 mcg-20 mcg oral tablet 1 tablet, By Mouth, Daily, # 84 tablet, 1 Refills, Maintenance, 10/04/20 13:19:00 EDT, Tablet, [facility]/pharmacy #[id number], Partial fill upon patient request if the prescription is for a schedule II opioid drug., 1 tablet By Mouth Daily, 165, cm, 10/04/20 13:0... Start Date: 10/04/20 Status: Ordered fluconazole 150 mg oral tablet 1 tablet = 150 mg, By Mouth, Once, Repeat dose if still having symptoms in 72 hours, # 2 tablet, 0 Refills, Soft Stop, 08/27/20 10:22:00 EDT, Tablet, [id number], 165, cm, 12/26/19 14:45:00 EDT, Height, 119, kg, 11/23/19 6:15:00 EDT, Dry Weight Start Date: 08/27/20 Status: Ordered Problem List Condition Effective Dates Status Health Status Inform ant Chronic constipation(Confirmed) Active Former smoker(Confirmed) Active Obesity(Confirmed) Active Infertility management(Confirmed) Active Social History Social History Type Response Smoking Status Former smoker, quit more than 30 days ago entered on: 11/16/18 Sex
--- OUTSIDE RECORDS SUMMARY | 2023-01-18 06:17 | XMS_ITS | Continuity of Care Document ---
Author Name Unknown Organization [facility] Address [address] [place] [phone]- Care Team Providers Care Cooker Sulfate Name Role Phone Sara JOHNSTON, Michelle Primary Care Physician En[place] [facility] [place] Date(s): 08/26/21 - 09/25/[address] [address]- Allergies, Adverse Reactions, Alerts Substance Reaction Severity Status Strawberries itchy throat Active CeleXA Active Medications Colace sodium 100 mg oral capsule 100 mg, 1, capsule, By Mouth, Daily, PRN, for 90 days, # 90 capsule, Refills 1, Tot. Refills 1, Hard Stop 02/12/22 21:04:00 EST, for constipation, 08/16/21 21:04:00 EDT, Route to Pharmacy Electronically, [facility]/pharmacy #[id number], Partial fill upon patient r... Start Date: 08/16/21 Stop Date: 02/12/22 Status: Ordered Colace sodium 100 mg oral capsule 100 mg, 1, capsule, By Mouth, Daily, PRN, # 60 capsule, Refills 3, Tot. Refills 3, Maintenance, forconstipation, 02/12/22 21:04:00 EST, Route to Pharmacy Electronically, [facility]/pharmacy #[id number], Partial fill upon patient request if the prescription is for... Start Date: 02/12/22 Status: Ordered Lexapro 5 mg oral tablet 1 tablet = 5 mg, By Mouth, Daily, # 30 tablet, 0 Refills, Maintenance, 03/06/21 12:31:00 EST, Tablet, Partial fill upon patient request if the prescription is for a schedule II opioid drug. Start Date: 03/06/21 Status: Ordered MiraLax oral powder for reconstitution = 17 Gm, By Mouth, Daily, PRN Constipation, dissolve in water before taking, # 255 Gm, 0 Refills, Maintenance, 08/13/21 12:58:00 EDT, REC Powder, [facility]/pharmacy #[id number], Partial fill upon patient requestif the prescription is for a schedule II opioid kat... Start Date: 08/13/21 Status: Ordered multivitamin, Multivitamins oral tablet, chewable 1 tablet, Chew, Daily, # 90 tablet, 2 Refills, Maintenance, 07/21/21 11:25:00 EDT, Chew Tablet, [facility]/pharmacy #[id number], Partial fill upon patient request if the prescription is for a schedule II opioid drug., 1 tablet Chew Daily, 165, cm, 06/22/21 18:15:0... Start Date: 07/21/21 Status: Ordered Unisom 25 mg oral tablet 1 tablet = 25 mg, By Mouth, Daily at bedtime, # 30 tablet, 1 Refills, Acute 10/10/21 11:49:00 EDT, 08/09/21 11:49:00 EDT, [id number], Partial fill upon patient request if the prescription is for a schedule II opioid drug., 165, cm, 07/27/21 9:... Start Date: 08/09/21 Stop Date: 10/10/21 Status: Ordered Problem List Condition Effective Dates Status Health Status Inform ant Environmental and seasonal allergies(Confirmed) Active H/O Bronchitis(Confirmed) Active Chronic constipation(Confirmed) Active H/O STD exposure(Confirmed) 1 Active Frequent headaches(Confirmed) Active H/O Tonsillitis(Confirmed) 2021 Active Anxiety and depression(Confirmed) 2 Active Obese class II(Confirmed) Active COVID-19 vaccine series not administered(Confirmed) Active 1Chlamydia 2Managed by PCP/has weekly therapy session/not currently on medications. Pt reports will call PCP todiscuss subsitute Rx for lexapro - as she would like to continue to take medication during . Social History Social History Type Response Smoking Status Former smoker, quit more than 30 days ago entered on: 08/16/21 Sex
--- OUTSIDE RECORDS SUMMARY | 2023-01-18 06:17 | XMS_ITS | Continuity of Care Document ---
Author Name Unknown Organization [facility] Address [address] [place] [id number]- Care Team Providers Care Degreasing Wheel Operator Name Role Phone Sara JOHNSTON, Elviraclif Primary Care Physician [id number] Date(s): 10/19/21 - 11/18/[address] [address]- Allergies, Adverse Reactions, Alerts Substance Reaction Severity Status Strawberries itchy throat Active CeleXA Active Medications famotidine 20 mg oral tablet 20 mg, 1, tablet, By Mouth, Daily at bedtime, # 30 tablet, Refills 1, Tot. Refills 1, Maintenance, 10/09/21 0:42:00 EDT, Route to Pharmacy Electronically, [facility]/pharmacy #[id number], Partial fill upon patient request if the prescription is for a schedule II o... Start Date: 10/09/21 Status: Ordered MiraLax oral powder for reconstitution [...] 06/22/21 18:15:0... Start Date: 07/21/21 Status: Ordered Problem List Condition Effective Dates [...] 30 days ago entered on: 08/16/21 Sex Care Team Personnel Name: Sara JOHNSTON , Michelle Address: [address] [place] [address]
--- OUTSIDE RECORDS SUMMARY | 2023-01-18 06:17 | XMS_ITS | Continuity of Care Document ---
Author Name Unknown Organization [facility] Address [address] [place] [id number]- Care Team Providers Care Mountain Guide Name Role Phone Sara JOHNSTON, Michelle Primary Care Physician [place] [facility] [place] 07/[place]/[address] [address]- Allergies, Adverse Reactions, Alerts Substance Reaction Severity Status Strawberries itchy throat Active CeleXA Active Medications Lexapro 5 mg oral tablet 1 tablet = 5 mg, By Mouth, Daily, # 30 tablet, 0 Refills, Maintenance, 03/06/21 12:31:00 EST, Tablet, Partial fill upon patient request if the prescription is for a schedule II opioid drug. Start Date: 03/06/21 Status: Ordered Problem List Condition Effective Dates Status Health Status Inform ant Chronic constipation(Confirmed) Active Former smoker(Confirmed) Active Obese class II(Confirmed) Active Obesity(Confirmed) Active Infertility management(Confirmed) Active Social History Social History Type Response Smoking Status 10 or more cigarette s (1/2 pack or more)/day in last 30 days entered on: 03/06/21 Sex
--- OUTSIDE RECORDS SUMMARY | 2023-01-18 06:17 | XMS_ITS | Continuity of Care Document ---
Author Name Unknown Organization [facility] Address [address] [place] [phone]- Care Team Providers Care Industrial Hygiene Engineer Name Role Phone Sara JOHNSTON, Michelle Primary Care Physician [place] [facility] [place]/26[place] - 08/25/[address] [address]- Allergies, Adverse Reactions, Alerts Substance Reaction Severity Status Strawberries itchy throat Active CeleXA Active Medications Colace sodium 100 mg oral capsule 100 mg, 1, capsule, By Mouth, Daily, PRN, # 90 capsule, Refills 1, Tot. Refills 1, Maintenance, forconstipation, 08/16/21 21:04:00 EDT, Route to Pharmacy Electronically, [facility]/pharmacy #[id number], Partial fill upon patient request if the prescription is for... Start Date: 08/16/21 Stop Date: 02/12/22 Status: Ordered Lexapro 5 mg [...] Refills, Maintenance, 08/13/21 12:58:00 EDT, REC Powder, [facility]/pharmacy #[id number], Partial fill upon patient requestif the prescription is for a schedule II opioid kat... Start Date: 08/13/21 Status: Ordered multivitamin, Multivitamins oral tablet, chewable 1 tablet, Chew, Daily, # 90 tablet, 2 Refills, Maintenance, 07/21/21 11:25:00 EDT, Chew Tablet, [facility]/pharmacy #[id number], Partial fill upon patient request if the prescription is for a schedule II opioid drug., 1 tablet Chew Daily, 165, cm, 06/22/21 18:15:0... Start Date: 07/21/21 Status: Ordered Unisom 25 mg oral tablet 1 tablet = 25 mg, By Mouth, Daily at bedtime, # 30 tablet, 1 Refills, Acute 10/10/21 11:49:00 EDT, 08/09/21 11:49:00 EDT, [facility]/pharmacy #[id number], Partial fill upon patient request if the prescription is for a schedule II opioid drug., 165, cm, 07/27/21 9:... Start Date: 08/09/21 Stop Date: 10/10/21 Status: Ordered Problem List Condition Effective Dates Status Health Status Inform ant Environmental and seasonal allergies(Confirmed) Active Type A blood, Rh negative(Confirmed) Active H/O Bronchitis(Confirmed) Active Chronic constipation(Confirmed) Active H/O STD exposure(Confirmed) 1 Active Frequent headaches(Confirmed) Active H/O Tonsillitis(Confirmed) 2021 Active Anxiety and depression(Confirmed) 2 Active COVID-19 vaccine series not administered(Confirmed) Active [...]
--- OUTSIDE RECORDS SUMMARY | 2023-01-18 06:17 | XMS_ITS | Continuity of Care Document ---
Author Name Unknown Organization [facility] Address [address] [place] [phone]- Care Team Providers Care Candy Puller Name Role Phone Sara JOHNSTON, Michelle Primary Care Physician [place] [facility] [place] 12/09/21 - 01/08/[address] [address]- Allergies, Adverse Reactions, Alerts Substance Reaction Severity Status Strawberries itchy throat Active CeleXA Active Immunizations Given and Recorded Vaccine Date Status Refusal Reason tetanus/diphtheria/pertussis, acel(Tdap) 12/27/21 Given Medications famotidine 20 mg oral tablet 20 mg, 1, tablet, By Mouth, Daily at bedtime, # 30 tablet, Refills 1, Tot. Refills 1, Maintenance, 10/09/21 0:42:00 EDT, Route to Pharmacy Electronically, [facility]/pharmacy #[id number], Partial fill upon patient request if [...] Date: 07/21/21 Status: Ordered Problem List Condition Confirmation Course Effective Dates Status H ealth Status Informant Environmental and seasonal allergies Confirmed Active H/O Bronchitis Confirmed Active Chronic constipation Confirmed Active H/O STD exposure 1 Confirmed Active Frequent headaches Confirmed Active H/O Tonsillitis Confirmed 2021 Active Anxiety and depression 2 Confirmed Active Obese class II Confirmed Active COVID-19 vaccine series not administered Confirmed Active 1Chlamydia 2Managed by PCP/has weekly therapy session/not currently on medications. Pt reports will call PCP todiscuss subsitute Rx for lexapro - as she would like to continue to take medication during . Social History Social History Type Response Smoking Status Former smoker, quit more than 30 days ago entered on: 08/16/21 Sex Patient Care team information Personnel Name: Michelle Ruiz MD Address: Address: [address] [place] [address]
--- OUTSIDE RECORDS SUMMARY | 2023-01-18 06:17 | XMS_ITS | Continuity of Care Document ---
Author Name Unknown Organization [facility] Address [address] [place] [phone]- Care Team Providers Care Exterminator Termite Name Role Phone Sara JOHNSTON, Michelle Primary Care Physician Encounter [facility] [place] Date(s): 03/10/19 - 03/20/[address] [address]- [facility] Attending Physician: Admjamilah, [id number] Admitting Physician: Admtr, [id number] Referring Physician: Admtr, [id number] Allergies, Adverse Reactions, Alerts Substance Reaction Severity Status Strawberries itchy throat Active CeleXA Active Medications Colace sodium 100 mg oral capsule 100 mg, 1, capsule, By Mouth, 2 times a day, PRN, # 60 capsule, Refills 3, Tot. Refills 3, Maintenance, for constipation, 11/16/18 18:15:59 EDT, Route to Pharmacy Electronically, [id number], [facility]/pharmacy #[id number] Start Date: 11/16/18 Status: Ordered Multivitamins By Mouth, Daily, 0 Refills, Maintenance, 11/16/18 17:01:35 EDT Start Date: 11/16/18 Status: Ordered Tylenol Extra Strength 500 mg oral tablet 2 tablet = 1,000 mg, By Mouth, Every 6 hours, 0 Refills, Maintenance, 11/16/18 17:01:04 EDT Start Date: 11/16/18 Status: Ordered Problem List Condition Effective Dates Status Health Status Inform ant Chronic constipation(Confirmed) Active Former smoker(Confirmed) Active Obesity(Confirmed) Active Social History Social History Type Response Smoking Status Former smoker, quit more than 30 days ago entered on: 11/16/18 Sex
--- OUTSIDE RECORDS SUMMARY | 2023-01-18 06:17 | XMS_ITS | Continuity of Care Document ---
Author Name Unknown Organization [facility] Address [address] [place] [phone]- Care Team Providers Care Electrician Ship Name Role Phone Sara JOHNSTON, Michelle Primary Care Physician [place] [facility] [place] [facility] [place](s[place] 11/25/19 - 12/25/19 [facility] [address] [address]- [facility] Allergies, Adverse Reactions, Alerts Substance Reaction Severity Status Strawberries itchy throat Active CeleXA Active Medications fluconazole 150 mg oral tablet 1 tablet = 150 mg, By Mouth, Once, Repeat dose if still having symptoms in 72 hours, # 2 tablet, 0 Refills, Soft Stop, 08/08/19 15:35:00 EDT, Tablet, [id number], 165, cm, 08/08/19 15:25:00 EDT, Height, 116.5, kg, 03/26/19 15:20:00 EST, Dry Weight Start Date: 08/08/19 Status: Ordered Problem List Condition Effective Dates Status Health Status Inform ant Chronic constipation(Confirmed) Active Ovarian cyst(Confirmed) Active Former smoker(Confirmed) Active Obesity(Confirmed) Active Infertility management(Confirmed) Active Social History Social History Type Response Smoking Status Former smoker, quit more than 30 days ago entered on: 11/16/18 Sex
--- OUTSIDE RECORDS SUMMARY | 2023-01-18 06:17 | XMS_ITS | Continuity of Care Document ---
Author Name Unknown Organization [facility] ter Address [address] [place] [id number]- Care Team Providers Care Sales Planning Manager Name Role Phone Not on Staff, PCP Primary Care Physician Unavail able Encounter [facility] Date(s): 03/28/22 - 03/28/[address] [id number] Discharge Disposition: A-D/C Home Attending Physician: Cecil JOHNSTON [OB], Jacqueline Mccabe Admitting Physician: Cecil JOHNSTON [OB]Jacqueline Referring Physician: Cecil JOHNSTON [OB]Jacqueline Allergies, Adverse Reactions, Alerts Substance Reaction Severity Status Strawberries itchy throat Resolved CeleXA Rash Active Immunizations Given and Recorded Vaccine Date Status Refusal Reason tetanus/diphtheria/pertussis, acel(Tdap) 12/27/21 Given Medications famotidine 20 mg oral tablet See Instructions, TAKE 1 TABLET BY MOUTH EVERYDAY AT BEDTIME, # 30 tablet, Refills 1, Maintenance, 02/14/22 6:30:00 EST, Instructions Replace Required Details, Route to Pharmacy Electronically, [id number], 164, cm, 02/09/22 11:07:00 EST, Height,... Start Date: 02/14/22 Status: Ordered MiraLax oral powder for reconstitution = 17 Gm, By Mouth, Daily, PRN Constipation, dissolve in water before taking, # 255 Gm, 0 Refills, Maintenance, 08/13/21 12:58:00 EDT, REC Powder, [facility]pharmacy #[id number], Partial fill upon patient requestif the prescription is for a schedule II opioid kat... Start Date: 08/13/21 Status: Ordered multivitamin, Multivitamins oral tablet, chewable 1 tablet, Chew, Daily, # 90 tablet, 2 Refills, Maintenance, 07/21/21 11:25:00 EDT, Chew Tablet, [id number], Partial fill upon patient request if the prescription is for a schedule II opioid drug., 1 tablet Chew Daily, 165, cm, 06/22/21 18:15:0... Start Date: 07/21/21 Status: Ordered Problem List Condition Confirmation Course Effective Dates Status Health St atus Informant Chronic constipation Confirmed Active Anxiety and depression 1 Confirmed Active Rh negative status during in first trimester Confirmed Active Severe obesity Confirmed Active 1Managed by PCP/has weekly therapy session/not currently on medications. Pt reports will call PCP todiscuss subsitute Rx for lexapro - as she would like to continue to take medication during . Vital Signs Most recent to oldest [Reference Range]: 1 Weight 109 kg (03/28/22 9:49 AM) Oxygen Saturation [94-100 %] 98 % (03/28/22 10:06 AM) Blood Pressure [90-138/55-84 mm Hg] 106/ 68mm Hg (03/28/22 10:06 AM) Respiratory Rate [16-30 br/min] 17 br/mi n (03/28/22 10:06 AM) Temperature [96.8-100.4 DegF] 97.6 DegF (03/28/22 9:49 AM) Mode of Delivery (Oxygen) Room air (03/28/22 10:06 AM) Blood pressure sites Arm, right (03/28/22 10:06 AM) Temperature Route Oral (03/28/22 9:49 AM) Dry Weight 109 kg (03/28/22 9:49 AM) Weight Obtained Via Standing scale (03/28/22 9:49 AM) Dry Weight Obtained Via Standing scale (03/28/22 9:49 AM) Social History Social History Type Response Smoking Status Former smoker, quit more than 30 days ago entered on: 08/16/21 Sex Note * Riri Majano: PERFORM Event Display: Discharge/Transfer Note Hospital Authored Date: [id number] Nursing Discharge Note Entered On: 03/28/2022 13:03 EST Performed On: 03/28/2022 13:02 EST by Riri Majano Nursing Discharge Note 2 Discharge Time : 03/28/2022 13:02 EST Discharge Level of Care at Discharge : Home/Care Home/Foster Care Patient Left Unit Via : Ambulatory Patient Accompanied Off Unit with : Significant other DC Instructions Provided & Signed by Pt : Yes Patient Understands D/C Instructions : Yes Patient Instructions Discharge Signed : Yes Did Pt have Specialty Bed or Wound Vac : No Riri Majano - 03/28/2022 13:02 EST * Riri Majano: PERFORM Event Display: Patient Education/Instruction Authored Date: [id number] Inpatient Adult Discharge Instructions [address] [address] Name: ROX WALTER : 1995 Visit: 03/28/2022 09:23:00 Current Date: 03/28/2022 12:40 Account: [id number] Inpatient Adult Discharge Instructions We would like [...] and their families. Surveys are administered by [employer] ?? If further treatment with your primary care physician or another doctor is recommended, it is important for you to keep the appointment. Call your primary care physician or return to the Emergency Department immediately if your condition worsens, fails to improve, or new symptoms develop. If you need to find a doctor, you can call [facility] [employer] for a referral at [phone] or toll free at [phone] ([phone]) or log in to [email or web address].. ?? You can view and manage your care through the patient portal or by using a health care sourav of your choosing. [employer] is a website that allows you to securely view your medical information including your hospital discharge summary, office visit summaries, medications and follow-up visits. You can also request appointments, renew medications, and request access to your medical information using a health care sourav of your choosing, or just ask a question. You can enroll at [email or web address] or register during your next office visit. You have been discharged from [facility], Patient Care Unit: [id number]. If you have any questions regarding these instructions after you leave, please call us and we will be happy to assist you. [facility] Your Care Team Attending Physician Cecil JOHNSTON [OB], Jacqueline Mccabe Tests Performed Below is a partial list of the tests performed during your hospitalization. You may have had other tests and procedures not included in this list. Please discuss all test results with your provider. CBC Primary Care Provider Not on Staff, PCP Advance Directive Health Care Proxy on File No No qualifying data available. Discharge Vitals Temperature: 97.6 DegF Weight: 109 kg Respiratory Rate: 17 br/min ?? Systolic Blood Pressure: 106 mm Hg ?? Diastolic Blood Pressure: 68 mm Hg ?? Oxygen Saturation: 98 % ?? Studies Pending All tests and labs ordered during this hospital stay have been completed unless listed below. Please discuss all pending results with your provider listed above in these instructions. ?? No incomplete studies found What to do next Instructions From Your Doctor Discharge Orders You Need to Schedule the Following Appointments Follow Up with??[facility] [phone] When?? Why: Keep scheduled appointments. Call office with questions or concerns. Where: Discharge Medications ROX WALTER :1995 Visit Date:03/28/2022 Medications: Please continue your medications until treatment is completed or stopped by your provider. Medications not listed below should be discontinued. Discuss any questions related to medications with your provider. What How Much When Instructions Next Dose Unchanged Famotidine (famotidine 20 mg oral tablet) See instructions TAKE 1 TABLET BY MOUTH EVERYDAY AT BEDTIME ?? Unchanged Multivitamin, (multivitamin, Multivitamins oral tablet, chewable) 1 tab(s) Chew Daily Unchanged Polyethylene Glycol 3350 (MiraLax oral powder for reconstitution) 17 gram Oral Daily as needed for Constipation dissolve in water before taking ?? Test Results Below is a partial list of the most recent Laboratory test results done prior to this discharge. You may have had other tests and procedures not included in this list. Please discuss all test resultswith your provider. CBC (03/28/2022) ???WBC - 12.1 k/mm3???RBC - 4.27 m/mm3???Hgb - 12.1 Gm/dL???Hct - 38.7 %???MCV - 90.6 femtoliters???MCH - 28.3 pg???MCHC - 31.3 g/dL???Platelet Count - 271 k/mm3???RDW-SD - 43.1 femtoliters???MPV - 9.9 femtoliters???Nucleated RBC (Automated) - 0.0 #/100 WBC'S???Abs. NRBC - 0.0 k/mm3 Allergies (NKA means No Known Allergies) CeleXA??(Rash) Problems Active Problems??(5) Anxiety and depression?? Chronic constipation? Rh negative status during in first trimester?? Severe obesity?? Education Materials Below is the list of Educational Leaflet Providered with your Discharge Instructions. Recognizing Labor?? Kick Counts?? Common Discomforts During ?? Valuables and Belongings I fully understand and agree that [facility] accepts no responsibility for all [...] Status?? Pulmonary Rehab Discharge Status?? Respiratory Rate: 17 br/min ? Common Emergency Awareness Tips IS [...] are strongly encouraged to quit. Please call [facility] [employer] [facility] at [phone] or [phone]) or log in to [email or web address] for referrals to smoking cessation programs. ?? The National Suicide Prevention Hotline is available 02/10 if you or someone you know needs to find a reason to keep living. By calling 3-769-860-[employer] (5769) you'll be connected to a skilled, trained counselor at a crisis center in your area. INPATIENT DISCHARGE INSTRUCTIONS SIGNATURE PAGE SABA, ROX Location:[facility] Registration Date and Time:03/28/2022 09:23 EST Primary Care Physician: Not on Staff, PCP ROX ARAMBULA, have received the above patient education materials/instructions and have verbalized understanding. If ambulance or transport services are being used I further acknowledge being given a choice of service. ?? If you need to contact me, please call me at this number: . Patient/Employee Benefits Manager Name: Patient/Employee Benefits Manager Signature: Relationship to Patient: Witness Name/Signature: Date: * Riri Majano: PERFORM Event Display: Patient Education Leaflets Authored Date: [id number] Recognizing Labor ?? [address] Recognizing Labor The beginning of labor is the beginning of . You???ll start to feel strong contractions. That???s when the muscles of your uterus tighten up to help push your baby out during . Yes, labor has likely started?? Signs of labor include: ??? Your contractions are getting stronger and more painful instead of weaker. You???ll likely feel them throughout your whole uterus. ??? Your contractions are regular. This means that you feel them about every 5 to 10 minutes. And they are getting closer together. ??? You have pink- colored or blood-streaked fluid from your vagina. ??? You feel that the baby has dropped lower in your pelvis? Your water breaks. It may be a gush or a slow trickle of clear fluid from your vagina. ?? No, it???s likely not real labor?? Signs of false labor include: ??? Your contractions aren???t regular or strong. ??? You feel the contractions only in your lower uterus. ??? Your contractions go away when you walk or change position. ??? Your contractions go away after drinking fluids. ?? When to call your healthcare provider Call your healthcare provider or clinic right away if you notice any of these signs: ??? Fluid fromyour vagina, with or without contractions. ??? Bleeding heavy enough that you need a sanitary pad. ??? You don???t feel your baby moving as much as before. ?? Note Contractions are timed by both of these measures: ??? The length of each contraction from its startto its finish. ??? How far apart the contractions are ???the time between the start of one contraction and the start of the next contraction. ?? Last Reviewed Date: 2022 ?? [employer]. All rights reserved. This information is not intended as a substitute for professional medical care. Always follow your healthcare professional's instructions. ?? * Riri Majano: PERFORM Event Display: Patient Education Leaflets Authored Date: [id number] Kick Counts ?? [address]163 Kick Counts It???s normal to worry about your baby???s health. One way you can know??your baby???s doing well is to record the baby???s movements once a day. This is called a kick count. Remember to take your kick count records to all your appointments with your healthcare provider. How to count kicks Time how long it takes you to feel 10 kicks, flutters, swishes, or rolls. Ideally, you want to feelat least 10 movements in 2 hours. You will likely feel 10 movements in less time than that. Starting at 28 weeks, count your baby's movements daily. Follow your healthcare provider's instructions for kick counting. Here are tips for counting kicks: ??? Choose a time when the baby is active,such as after a meal.? Sit comfortably or lie on your side.? The first time the baby moves,??write down??the time.? Count each movement until the baby has moved?? 10??times. This can take from 20 minutes to 2??hours.? If you haven't felt 10 kicks by the end of the second hour, wait a few hours. Then try again. ??? Try to do it at the same time each day. ?? When to call your healthcare provider Call your healthcare provider?? right away??if: ??? You do a couple sets of kick counts during the day and your baby moves fewer than 10??times in??2??hours. ??? Your baby moves much less often than on the??days before. ??? You haven't felt your baby move all day. ?? Last Reviewed Date: 2022 ?? [id number] [employer]. All rights reserved. This information is not intended as a substitute for professional medical care. Always follow your healthcare professional's instructions. ?? * Riri Majano: PERFORM Event Display: Patient Education Leaflets Authored Date: [id number] Common Discomforts During ?? [id number] Common Discomforts During Symptoms of discomfort due to vary from woman to woman. Below are some common discomforts. But each [id number] may have different symptoms or none at all: ??? Nausea and vomiting. About half of all women have nausea and sometimes vomiting in the first trimester. This is also called morning sickness. That's because symptoms are most severe in the morning. Some women may have nausea and vomiting throughout the .??Morning sickness may be due to the changes in hormone levels during . Morning sickness seems to be??made worse??by stress, traveling, and certainfoods, like spicy or fatty foods. Eating small meals several times a day may help lessen the symptoms. A diet high in protein and complex carbohydrates (like whole-wheat bread, pasta, bananas, and green, leafy vegetables) may also help reduce the severity of the nausea. If vomiting is severe, causing a woman to lose fluids and weight, it may??be a sign of??a condition called hyperemesis gravidarum. Hyperemesis can lead to dehydration and may require a hospital stay for intravenous fluids and nutrition. Call your healthcare provider or back hoe operator if you are having constant or severe nausea and vomiting. ??? Fatigue. As the body works overtime to provide a nourishing environment for the fetus, it is no wonder a woman often feels tired. In the first trimester, her blood volume and other fluids increase as her body adjusts to the . Sometimes anemia is the underlying cause of the fatigue. Anemia is a drop in the ability of red blood cells to carry oxygen. It is often due to low iron levels. A simple blood test done at a visit will check for anemia. ??? Hemorrhoids. Hemorrhoids are common in late . That's because of the increased pressure on the rectum and perineum, the increased blood volume, and the increased likelihood of becoming constipated as thepregnancy progresses. Avoiding constipation and straining may help to prevent hemorrhoids. Always check with your healthcare provider or back hoe operator before using any medicine to treat this condition. ??? Varicose veins. Varicose veins???swollen, purple veins???are common in the legs and around the vaginal opening during late . In most cases, varicose veins are caused by the increased pressure on the legs and the pelvic veins. It is also caused by the increased blood volume. ??? Heartburn and indigestion. Heartburn and indigestion is caused by pressure on the intestines and stomach (which, in turn, pushes stomach contents back up into the esophagus). It can be prevented or reduced by eating smaller meals throughout the day and by not lying down shortly after eating. ??? Bleeding gums.Gums may become more spongy as blood flow increases during . This causes them to bleed easily. A woman should continue to take care of her teeth and gums and go to the dentist for regular checkups. This symptom usually disappears after . ??? Pica. Pica is a rare craving to eat substances other than food, like dirt, cher, or coal. The craving may be a sign of a nutritional deficiency. ??? Swelling or fluid retention. Mild swelling is common during . But severeswelling that??lasts may??be a sign of??preeclampsia (abnormal condition marked by high blood pressure). Lying on the left side, elevating the legs, and wearing support hose and comfortable shoes mayhelp to relieve the swelling. Be sure to notify your??healthcare provider??or back hoe operator about sudden swelling, especially in the hands or face, or rapid weight gain. ??? Skin changes. Due to fluctuations in hormone levels, including hormones that stimulate pigmentation of the skin, brown, blotchy patches may??happen on the face, forehead, or cheeks. This is often called the mask of , or chloasma. It often disappears soon after delivery. Using sunscreen when outside can reduce the amount of darkening that happens.?? Pigmentation may also increase in the skin surrounding the nipples, called the areola. A dark line??also often appears down the middle of the stomach. Freckles may darken,and moles may grow. ??? Stretch goodman. Pinkish stretch goodman may appear on the stomach, breasts, thighs, or buttocks. Stretch goodman are generally caused by a rapid increase in weight. The goodman usually fade after . ??? Yeast infections. Due to hormone changes and increased vaginal discharge, also called leukorrhea, a woman is more prone to yeast infections. Yeast infections cause a thick, whitish discharge from the vagina and itching. Yeast infections are highly treatable. Always talk with your healthcare provider or back hoe operator before taking any medicine for this condition.? Congested or bloody nose. During , the lining of the respiratory tract receives more blood, often making it more congested. This congestion can also cause stuffiness in the nose or nosebleeds. Small blood vessels in the nose are also easily damaged due to the increased blood volume, causing nosebleeds. ??? Constipation. Increased pressure from the on the rectum and intestinescan interfere with digestion and bowel movements. Hormone changes may also slow down the food beingprocessed by the body. Increasing fluids, exercising regularly, and increasing the fiber in your diet are some of the ways to prevent constipation. Always check with your healthcare provider or back hoe operator before taking any medicine for this condition.? Backache. As a woman's weight increases, herbalance changes. Her center of gravity is pulled forward,??straining her back. Pelvic joints that begin to loosen in preparation for childbirth also contribute to this back strain. Proper posture andproper lifting techniques throughout the can help reduce the strain on the back. ??? Dizziness. Dizziness during is a common symptom. It may be caused by: o Low blood pressure dueto the uterus compressing major arteries o Low blood sugar o Low iron o Quickly moving from a sitting position to a standing position o Dehydration To prevent injury from falling during episodes of dizziness, a woman should stand up slowly and hold on to the laurent and other stable structures for support and balance. ??? Headaches. Hormonal changes may be the cause of headaches during , especially during the first trimester. Rest, proper nutrition, and adequate fluid intake mayhelp??ease headache symptoms. Always talk with your healthcare provider or back hoe operator??before taking any medicine for this condition. If you have a severe headache or a headache that does not go away, call your healthcare provider. It may be a sign of preeclampsia.?? Last Reviewed Date: 2019 ?? [id number] [employer]. All rights reserved. This information is not intended as a substitute for professional medical care. Always follow your healthcare professional's instructions. ?? Patient Care team information Care Team Personnel Name: Hali Moore RN Position: [facility] AMB Nurse Member Role: Primary Care Nurse Name: Not on Staff, PCP Position: [facility] Physician (General Medicine) Member Role: PCP Name: Jacqueline Sales RN Position: [facility] RN Member Role: Primary Care Nurse Name: Riri Majano Position: [facility] OB RN Member Role: Patient Care Provider Care Team Related Persons Name: NOÉ GUILLAUME Address: [address] [place] [address] Name: HUSEYIN MERCADO Address: [address] [place] [place] [address] Name: SHANON IZAGUIRRE Address: home [address] [place] [address] [place] [address]
--- OUTSIDE RECORDS SUMMARY | 2023-01-18 06:18 | XMS_ITS | Continuity of Care Document ---
Author Name Unknown Organization [facility] ter Address [address] [place] [address]- Care Team Providers Care General Expeditor Name Role Phone Sara JOHNSTON, [facility] Primary Care Physician Encounter [facility] [place] Date(s): 08/10/21 - 08/13/[address] [address] Discharge Disposition: A-D/C Home Attending Physician: Jose Guadalupe Fninegan MD Admitting Physician: Sher Cuevas MD Referring Physician: Sher Cuevas MD Allergies, Adverse Reactions, Alerts Substance Reaction Severity Status Strawberries itchy throat Active CeleXA Active Medications Augmentin 875 mg-125 mg oral tablet 1 tablet, By Mouth, 2 times a day, for 7 days, # 14 tablet, 0 Refills, Acute 08/20/21 12:58:00 EDT,08/13/21 12:58:00 EDT, [facility]/pharmacy #[id number], Partial fill upon patient request if the prescription isfor a schedule II opioid drug., 164, cm, 08/13/21 8... Start Date: 08/13/21 Stop Date: 08/20/21 Status: Ordered Fioricet Tablet 1 tablet, Tablet, By Mouth, Every 4 hours for 5 doses/times, PRN for Headache, Routine, 08/11/21 15:16:00 EDT, Stop date Limited # of times Notes: Butalbital 50mg, Not to exceed 4000mg of Acetaminophen per 24 hours. 325mg, Caffeine 40mg per tablet Start Date: 08/11/21 Stop Date: 08/14/21 Status: Discontinued Lexapro 5 mg oral tablet 1 tablet [...] Refills, Maintenance, 08/13/21 12:58:00 EDT, REC Powder, [facility]/pharmacy #[id number], Partial fill upon patient requestif the [...] II(Confirmed) Active Obesity(Confirmed) Active Infertility management(Confirmed) Active Results Orders for Microbiology Reports Name Date Urine Culture (Culture Urine) 08/11/21 Blood Culture 08/10/21 Blood Culture #2 08/10/21 Throat Culture Grp A Strep (Group A Stre p Culture) 08/10/21 Microbiology Reports TEST:Urine Culture STATUS:Auth (Verified) BODY SITE: SOURCE:URINE COLLECTED DATE/TIME:08/11/21 2:46 AM Urine Culture SPECIMEN DESCRIPTION : URINE CLEAN CATCH/MIDSTREAM SPECIAL REQUESTS : NONE CULTURE : <10,000 COL/ML REPORT STATUS : FINAL 08/12/2021 TEST:Blood Culture STATUS:Unauthenticated BODY SITE: SOURCE:Blood COLLECTED DATE/TIME:08/10/21 8:55 PM Blood Culture SPECIMEN DESCRIPTION : BLOOD RIGHT ARM SPECIAL REQUESTS : NONE CULTURE : NO GROWTH 3 DAYS REPORT STATUS : PRELIMINARY REPORT TEST:Blood Culture, Second Order STATUS:Unauthenticated BODY SITE: SOURCE:Blood COLLECTED DATE/TIME:08/10/21 8:55 PM Blood Culture, Second Order SPECIMEN DESCRIPTION : BLOOD RIGHT HAND SPECIAL REQUESTS : NONE CULTURE : NO GROWTH 3 DAYS REPORT STATUS : PRELIMINARY REPORT TEST:Group A Strep Culture STATUS:Auth (Verified) BODY SITE: SOURCE:THROAT COLLECTED DATE/TIME:08/10/21 5:00 PM Group A Strep Culture SPECIMEN DESCRIPTION : THROAT SWAB SPECIAL REQUESTS : NONE CULTURE : NO GROUP A BETA HEMOLYTIC STREPTOCOCCI ISOLATED REPORT STATUS : FINAL 08/13/2021 Vital Signs Most recent to oldest [Reference Range]: 1 2 3 Height 164 cm (08/13/21 8:29 AM) 164 cm (08/12/21 4:39 AM) 164 cm (08/11/21 7:39 PM) Weight 101.8 kg (08/11/21 4:31 AM) Oxygen Saturation [94-100 %] 100 % (08/13/21 8:29 AM) 100 % (08/13/21 3:00 AM) 100 % (08/12/21 8:00 PM) Pulse Rate [55-90 bpm] 60 bpm (08/13/21 8:29 AM) 62 bpm (08/13/21 3:00 AM) 61 bpm (08/12/21 8:00 PM) Body Mass Index [18.5-24.99] 37.85 *>HHI* (08/11/21 4:31 AM) Blood Pressure [90-138/55-84 mm Hg] 93/53mm Hg (08/13/21 8:29 AM) 99/46mm Hg (08/13/21 3:00 AM) 106/44mm Hg (08/12/21 8:00 PM) Respiratory Rate [16-30 br/min] 21 br/min (08/13/21 8:29 AM) 16 br/min (08/13/21 6:40 AM) 16 br/min (08/13/21 5:40 AM) Temperature [96.8-100.4 DegF] 98.1 DegF (08/13/21 8:29 AM) 98.0 DegF (08/13/21 3:00 AM) 98.6 DegF (08/12/21 8:00 PM) Mode of Delivery (Oxygen) Room air (08/13/21 8:29 AM) Room air (08/13/21 3:00 AM) Room air (08/12/21 8:00 PM) Blood pressure sites Arm, right (08/13/21 3:00 AM) Arm, right (08/12/21 8:00 PM) Arm, right (08/12/21 3:00 PM) Temperature Route Oral (08/13/21 8:29 AM) Oral (08/13/21 3:00 AM) Oral (08/12/21 8:00 PM) Dry Weight 101.8 kg (08/11/21 4:31 AM) Weight Obtained Via Bed scale (08/11/21 4:31 AM) Social History Social History Type Response Smoking Status 10 or more cigarette s (1/2 pack or more)/day in last 30 days entered on: 03/06/21 Sex
--- OUTSIDE RECORDS SUMMARY | 2023-01-18 06:18 | XMS_ITS | Continuity of Care Document ---
Author Name Unknown Organization [facility] ter Address [address] [place] [address]- Care Team Providers Care Cadet Deck Name Role Phone Sara JOHNSTON, Michelle Primary Care Physician Encounter [facility] [place] Date(s): 01/12/22 - 01/12/[address] [address] Discharge Disposition: A-D/C Home Attending Physician: Claire Snyder MD Admitting Physician: Claire Snyder MD Referring Physician: Claire Snyder MD Allergies, Adverse Reactions, Alerts Substance Reaction Severity Status Strawberries itchy throat Resolved CeleXA Active Immunizations Given and Recorded Vaccine Date Status Refusal Reason tetanus/diphtheria/pertussis, acel(Tdap) 12/27/21 Given Medications famotidine 20 mg oral tablet 20 mg, 1, tablet, By Mouth, Daily at bedtime, # 30 tablet, Refills 1, Tot. Refills 1, Maintenance, 10/09/21 0:42:00 EDT, Route to Pharmacy Electronically, [facility]/pharmacy #[id number], Partial fill upon patient request if [...] Refills, Maintenance, 07/21/21 11:25:00 EDT, Chew Tablet, [facility]/pharmacy #[id number], Partial fill upon patient request if the [...] to oldest [Reference Range]: 1 2 3 Weight 105.9 kg (01/12/22 11:12 AM) Oxygen Saturation [94-100 %] 100 % (01/12/22 12:01 PM) 97 % (01/12/22 11:46 AM) 98 % (01/12/22 11:31 AM) Blood Pressure [90-138/55-84 mm Hg] 98/58mm Hg (01/12/22 12:01 PM) 103/60mm Hg (01/12/22 11:46 AM) 110/68mm Hg (01/12/22 11:31 AM) Respiratory Rate [16-30 br/min] 18 br/min (01/12/22 11:31 AM) Temperature [96.8-100.4 DegF] 98.5 DegF (01/12/22 11:12 AM) Blood pressure sites Arm, right (01/12/22 11:31 AM) Temperature Route Oral (01/12/22 11:12 AM) Dry Weight 105.9 kg (01/12/22 11:12 AM) Social History Social History Type Response Smoking Status Former smoker, quit more than 30 days ago entered on: 08/16/21 Sex Patient Care team information Personnel Name: Michelle Ruiz MD Address: Address: [address] [place] [address] [place] [address]-
--- OUTSIDE RECORDS SUMMARY | 2023-01-18 06:18 | XMS_ITS | Continuity of Care Document ---
Author Name Unknown Organization [facility] Address [address] [place] [address]- Care Team Providers Care Equal Opportunity Representative Name Role Phone Sara JOHNSTON, Michelle Primary Care Physician Encounter [facility] [place] Date(s): 12/30/21 - 01/29/[address] [address]- Allergies, Adverse Reactions, Alerts Substance Reaction Severity Status CeleXA Active Strawberries itchy throat Resolved Immunizations Given and Recorded Vaccine Date Status Refusal Reason tetanus/diphtheria/pertussis, acel(Tdap) 12/27/21 Given Medications famotidine 20 mg oral tablet 20 mg, 1, tablet, By Mouth, Daily at bedtime, # 30 tablet, Refills 1, Tot. Refills 1, Maintenance, 10/09/21 0:42:00 EDT, Route to Pharmacy Electronically, [facility]/pharmacy #[id number], Partial fill upon patient [...] Refills, Maintenance, 07/21/21 11:25:00 EDT, Chew Tablet, [facility]/pharmacy #[id number], Partial fill upon patient request if the prescription is for a schedule II opioid drug., 1 tablet Chew Daily, 165, cm, 06/22/21 18:15:0... Start Date: 07/21/21 Status: Ordered Problem List Condition Confirmation Course Effective Dates Status Health St [facility] Informant Chronic constipation Confirmed Active Anxiety and depression 1 Confirmed Active Rh negative status during in first trimester Confirmed Active 1Managed by PCP/has weekly therapy [...] Team Personnel Name: Hali Moore RN Position: [facility] Nurse Member Role: Primary Care Nurse Name: Jacqueline Sales RN Position: [facility] RN Member Role: Primary Care Nurse Care Team Related Persons Name: NOÉ GUILLAUME Address: home [address] [place] [address] Name: HUSEYIN MERCADO Address: home [address] [place] Name: SHANON IZAGUIRRE Address: home [address] [place] [address] [place] [address]
--- OUTSIDE RECORDS SUMMARY | 2023-01-18 06:18 | XMS_ITS | Continuity of Care Document ---
Author Name Unknown Organization [facility] Address [address] [place] [address]- Care Team Providers Care Flat Folding Machine Operator Name Role Phone Sara JOHNSTON, [facility] Primary Care Physician [id number] Date(s): 12/09/21 - 01/12/[address] [address]- Attending Physician: Not on Staff, Attending MD Allergies, Adverse Reactions, Alerts Substance Reaction Severity Status Strawberries itchy throat Resolved CeleXA Active Immunizations Given and Recorded Vaccine Date Status Refusal Reason tetanus/diphtheria/pertussis, acel(Tdap) 12/27/21 Given Medications famotidine 20 mg oral tablet 20 mg, 1, tablet, By Mouth, Daily at bedtime, # 30 tablet, Refills 1, Tot. Refills 1, Maintenance, 10/09/21 0:42:00 EDT, Route to Pharmacy Electronically, [facility]/pharmacy #[id number], Partial fill upon patient request if the prescription is for a schedule II o... Start Date: 10/09/21 Status: Ordered MiraLax oral powder for reconstitution = 17 Gm, By Mouth, Daily, PRN Constipation, dissolve in water before taking, # 255 Gm, 0 Refills, Maintenance, 08/13/21 12:58:00 EDT, REC Powder, [facility]/pharmacy #[id number], Partial fill upon patient requestif the prescription is for a schedule II opioid kat... Start Date: 08/13/21 Status: Ordered multivitamin, Multivitamins oral tablet, chewable 1 tablet, Chew, Daily, # 90 tablet, 2 Refills, Maintenance, 07/21/21 11:25:00 EDT, Chew Tablet, [facility]/pharmacy #[id number], Partial fill upon patient request if the [...] Personnel Name: Michelle Ruiz MD Address: Address: [address] [place] [id number]
--- OUTSIDE RECORDS SUMMARY | 2023-01-18 06:18 | XMS_ITS | Continuity of Care Document ---
Author Name Unknown Organization [facility] Address [address] [place] [address]- Care Team Providers Care Slice Plug Cutter Operator Name Role Phone Sara JOHNSTON, Michelle Primary Care Physician [place] [facility] [place] Date(s): 04/03/22 - 05/03/[address] [address]- Allergies, Adverse Reactions, Alerts Substance Reaction Severity [...] Replace Required Details, Route to Pharmacy Electronically, [id number], 164, cm, 02/09/22 11:07:00 EST, Height,... Start [...] Refills, Maintenance, 08/13/21 12:58:00 EDT, REC Powder, [facility]/pharmacy #[id number], Partial fill upon patient requestif the prescription is for a schedule II opioid kat... Start Date: 08/13/21 Status: Ordered ondansetron 4 mg oral tablet, disintegrating = 4 mg, By Mouth, Every 6 hours, PRN Nausea & Vomiting, # 30 tablet, 1 Refills, Maintenance, 04/07/22 15:04:00 EST, Tablet, [facility]/pharmacy #[id number], Partial fill upon patient [...] Team Personnel Name: Hali Moore RN Position: [facility] Nurse Member Role: Primary Care Nurse Name: Jacqueline Sales RN Position: [facility] RN Member Role: Primary Care Nurse Care Team Related Persons Name: NOÉ GUILLAUME Address: home [address] [place] [address] Name: ISHA MERCADO Address: [employer] Address: home [address] [place] [address] Name: HUSEYIN MERCADO Address: home [address] [place] [address] Name: SHANON IZAGUIRRE Address: home [address] [place] [address]
--- OUTSIDE RECORDS SUMMARY | 2023-01-18 06:18 | XMS_ITS | Continuity of Care Document ---
Author Name Unknown Organization [facility] Address [address] [place] [address]- Care Team Providers Care Patient Services Coordinator Name Role Phone Sara JOHNSTON, Elviraclif Primary Care Physician [place] [facility]/05/[place] - 06/04/[address] [address]- Attending Physician: Anay Coronel Admitting Physician: AdmAnay askew Referring Physician: AdmtrAnay Allergies, Adverse Reactions, Alerts [...] Replace Required Details, Route to Pharmacy Electronically, for[MD] STORE [id number], 164, cm, 02/09/22 11:07:00 EST, Height,... Start [...] Refills, Maintenance, 08/13/21 12:58:00 EDT, REC Powder, [facility]/pharmacy #[id number], Partial fill upon patient requestif the prescription is for a schedule II opioid kat... Start Date: 08/13/21 Status: Ordered ondansetron 4 mg oral tablet, disintegrating = 4 mg, By Mouth, Every 6 hours, PRN Nausea & Vomiting, # 30 tablet, 1 Refills, Maintenance, 04/07/22 15:04:00 EST, Tablet, [facility]/pharmacy #[id number], Partial fill upon patient request if [...] ago entered on: 08/16/21 Sex Note * Event Display: X-Ray Spine, Non- BH Authored Date: Patient Care team information Care Team Personnel Name: Hali Moore RN Position: [facility] Nurse Member Role: Primary Care Nurse Name: Jacqueline Sales RN Position: [facility] RN Member Role: Primary Care Nurse Care Team Related Persons Name: NOÉ GUILLAUME Address: [address] [address] Name: ISHA MERCADO Address: [employer] Address: home [address] [place] [address] [place] Name: HUSEYIN MERCADO Address: [address] [place] [address] Name: SHANON IZAGUIRRE Address: home [address] [place] [address]
--- OUTSIDE RECORDS SUMMARY | 2023-01-18 06:18 | XMS_ITS | Continuity of Care Document ---
Author Name Unknown Organization [facility] Address [address] [place] [address]- Care Team Providers Care Audit Specialist Name Role Phone Sara JOHNSTON, Michelle Primary Care Physician [place] [facility] [place]s): 11/18/19 - 12/18/19 [facility] [address] [address]- [facility] Allergies, Adverse Reactions, Alerts Substance Reaction Severity [...]
--- OUTSIDE RECORDS SUMMARY | 2023-01-18 06:18 | XMS_ITS | Continuity of Care Document ---
Author Name Unknown Organization [facility] Address [address] [place] [address]- Care Team Providers Care Christian Science Nurse Name Role Phone Sara JOHNSTON, Michelle Primary Care Physician En[facility] [place] Date(s): 09/05/21 - 10/05/[address] [address]- Allergies, Adverse Reactions, Alerts Substance Reaction Severity Status Strawberries itchy throat Active CeleXA Active Medications Colace sodium 100 mg oral capsule 100 mg, 1, capsule, By Mouth, Daily, PRN, for 90 days, # 90 capsule, Refills 1, Tot. Refills 1, Hard Stop 02/12/22 21:04:00 EST, for constipation, 08/16/21 21:04:00 EDT, Route to Pharmacy Electronically, [facility]/pharmacy #[id number], Partial fill upon patient r... Start Date: 08/16/21 Stop Date: 02/12/22 Status: Ordered Colace sodium 100 mg oral capsule 100 mg, 1, capsule, By Mouth, Daily, PRN, # 60 capsule, Refills 3, Tot. Refills 3, Maintenance, forconstipation, 02/12/22 21:04:00 EST, Route to Pharmacy Electronically, [facility]/pharmacy #[id number], Partial fill upon patient request if [...] Refills, Maintenance, 08/13/21 12:58:00 EDT, REC Powder, [facility]/pharmacy #[id number], Partial fill upon patient requestif the [...]
--- OUTSIDE RECORDS SUMMARY | 2023-01-18 06:18 | XMS_ITS | Continuity of Care Document ---
Author Name Unknown Organization [facility] Address [address] [place] [address]- Care Team Providers Care Freight Router Name Role Phone Michelle Ruiz MD Primary Care Phys[id number] Date(s): 09/20/21 - 12/22/[address] [address]- Attending Physician: Not on Staff, Attending MD Allergies, Adverse Reactions, Alerts Substance Reaction Severity Status Strawberries itchy throat Active CeleXA Active Medications famotidine 20 mg oral tablet 20 mg, 1, tablet, By Mouth, Daily at bedtime, # 30 tablet, Refills 1, Tot. Refills 1, Maintenance, 10/09/21 0:42:00 EDT, Route to Pharmacy Electronically, [facility]/pharmacy #[id number], Partial fill upon patient [...] Personnel Name: Michelle Ruiz MD Address: Address: [address] [place] [id number]
--- OUTSIDE RECORDS SUMMARY | 2023-01-18 06:18 | XMS_ITS | Continuity of Care Document ---
Author Name Unknown Organization [facility] ter Address [address] [place] [address]- Care Team Providers Care Order Analyst Name Role Phone Not on Staff, PCP Primary Care Physician Unavail able Encounter [facility] Date(s): 03/25/22 - 03/26/[address] [address] Discharge Disposition: A-D/C Home Attending Physician: Lyndsey Deshpande MD Admitting Physician: Lyndsey Deshpande MD Referring Physician: Lyndsey Deshpande MD Allergies, Adverse Reactions, Alerts Substance Reaction Severity Status Strawberries itchy throat Resolved CeleXA Rash Active Immunizations Given and Recorded Vaccine Date Status Refusal Reason tetanus/diphtheria/pertussis, acel(Tdap) 12/27/21 Given Medications famotidine 20 mg oral tablet See Instructions, TAKE 1 TABLET BY MOUTH EVERYDAY AT BEDTIME, # 30 tablet, Refills 1, Maintenance, 02/14/22 6:30:00 EST, Instructions Replace Required Details, Route to Pharmacy Electronically, [id number], 164, cm, 02/09/22 11:07:00 EST, Height,... Start Date: 02/14/22 Status: Ordered MiraLax oral powder for reconstitution = 17 Gm, By Mouth, Daily, PRN Constipation, dissolve in water before taking, # 255 Gm, 0 Refills, Maintenance, 08/13/21 12:58:00 EDT, REC Powder, [facility]/pharmacy #[id number], Partial fill upon patient requestif the prescription is for a schedule II opioid kat... Start Date: 08/13/21 Status: Ordered multivitamin, Multivitamins oral tablet, chewable 1 tablet, Chew, Daily, # 90 tablet, 2 Refills, Maintenance, 07/21/21 11:25:00 EDT, Chew Tablet, [facility]/pharmacy #[id number], Partial fill upon patient request if the prescription is for a schedule II opioid drug., 1 tablet Chew Daily, 165, cm, 06/22/21 18:15:0... Start Date: 07/21/21 Status: Ordered Tylenol 325 mg oral tablet 975 mg, Tablet, By Mouth, Once, Routine, 03/26/22 0:00:00 EST, Stop date 03/26/22 0:00:00 EST Start Date: 03/26/22 Stop Date: 03/25/22 Status: Completed Problem List Condition Confirmation Course Effective Dates [...] recent to oldest [Reference Range]: 1 2 Weight 110.3 kg (03/25/22 10:28 PM) Oxygen Saturation [94-100 %] 98 % (03/25/22 10:48 PM) Blood Pressure [90-138/55-84 mm Hg] 110/ 68mm Hg (03/25/22 10:48 PM) Respiratory Rate [16-30 br/min] 18 br/mi n (03/26/22 12:25 AM) 18 br/min (03/25/22 10:48 PM) Temperature [96.8-100.4 DegF] 98.6 DegF (03/25/22 10:28 PM) Mode of Delivery (Oxygen) Room air (03/25/22 10:48 PM) Blood pressure sites Arm, right (03/25/22 10:48 PM) Temperature Route Oral (03/25/22 10:28 PM) Dry Weight 110.3 kg (03/25/22 10:28 PM) Weight Obtained Via Standing scale (03/25/22 10:28 PM) Dry Weight Obtained Via Standing scale (03/25/22 10:28 PM) Social History Social History Type Response Smoking Status Former smoker, quit more than 30 days ago entered on: 08/16/21 Sex Note * Therese Beckford RN: PERFORM Event Display: Discharge/Transfer Note Hospital Authored Date: [id number] Nursing Discharge Note Entered On: 03/26/2022 2:10 EST Performed On: 03/26/2022 2:10 EST by Therese Beckford RN Nursing Discharge Note 2 Discharge Time : 03/26/2022 2:07 EST Discharge Level of Care at Discharge : Home/Detention/Foster Care Patient Left Unit Via : Ambulatory Patient Accompanied Off Unit with : Significant other DC Instructions Provided & Signed by Pt : Yes Patient Understands D/C Instructions : Yes Patient Instructions Discharge Signed : Yes Did Pt have Specialty Bed or Wound Vac : No Therese Beckford RN - 03/26/2022 2:10 EST * Therese Beckford RN: PERFORM Event Display: Patient Education/Instruction Authored Date: [id number] Inpatient Adult Discharge Instructions [address] [address] Name: ROX WALTER : 1995 Visit: 03/25/2022 22:20:00 Current Date: 03/26/2022 02:00 Account: [id number] Inpatient Adult Discharge Instructions We would like [...] and their families. Surveys are administered by [employer] ?? If further treatment with your primary care physician or another doctor is recommended, it is important for you to keep the appointment. Call your primary care physician or return to the Emergency Department immediately if your condition worsens, fails to improve, or new symptoms develop. If you need to find a doctor, you can call [facility] for a referral at [phone] or toll free at [phone] ([phone]) or log in to [email or web address].. ?? You can view and manage your care through the patient portal or by using a health care sourav of your choosing. [email or web address] is a website that allows you to securely view your medical information including your hospital discharge summary, office visit summaries, medications and follow-up visits. You can also request appointments, renew medications, and request access to your medical information using a health care sourav of your choosing, or just ask a question. You can enroll at [email or web address] or register during your next office visit. You have been discharged from [facility], Patient Care Unit: [id number]. If you have any questions regarding these instructions after you leave, please call us and we will be happy to assist you. [facility] Your Care Team Attending Physician Lyndsey Deshpande MD Tests Performed Below is a partial list of the tests performed during your hospitalization. You may have had other tests and procedures not included in this list. Please discuss all test results with your provider. COVID-19, RSV, and Flu A/B, Rapid PCR Primary Care Provider Not on Staff, PCP Advance Directive Health Care Proxy on File No No qualifying data available. Discharge Vitals Temperature: 98.6 DegF Weight: 110.3 kg Respiratory Rate: 18 br/min ?? Systolic Blood Pressure: 110 mm Hg ?? Diastolic Blood Pressure: 68 [...] to Schedule the Following Appointments Follow Up with??[facility] [phone] When?? Follow Up with??Please follow up as scheduled for routine OB visits. Please bring BP cuff to next appointment at clinic When?? Discharge Medications ROX WALTER :1995 Visit Date:03/25/2022 Medications: Please continue your medications until treatment [...] Please discuss all test resultswith your provider. COVID-19, RSV, and Flu A/B, Rapid PCR (03/25/2022) ???Influenza A PCR - NEGATIVE???Influenza B PCR - NEGATIVE???RSV PCR - NEGATIVE???COVID-19 PCR Specimen Source - NASAL???COVID-19 PCR Result - NEGATIVE Allergies (NKA means No Known Allergies) CeleXA??(Rash) Problems Active Problems??(5) Anxiety and depression?? Chronic constipation? Rh negative status during in first trimester?? Severe obesity?? Education Materials Below is the list of Educational Leaflet Providered with your Discharge Instructions. Recognizing Labor?? Kick Counts?? Adapting to : Third Trimester?? Valuables and Belongings I fully understand and agree that [facility] accepts no responsibility for all [...] Rehab Discharge Status?? Respiratory Rate: 18 br/min ? Common Emergency [...] are strongly encouraged to quit. Please call [facility] at [phone] or [phone] [employer] ([phone]) or log in to [email or web address] for referrals to smoking cessation programs. ?? The National Suicide Prevention Hotline is available 02/10 if you or someone you know needs to find a reason to keep living. By calling 6-723-110-ClearFit (9561) you'll be connected to a skilled, trained counselor at a crisis center in your area. INPATIENT DISCHARGE INSTRUCTIONS SIGNATURE PAGE ROX WALTER Location:[facility] Registration Date and Time:03/25/2022 22:20 EST Primary Care Physician: Not on Staff, PCP ROX ARAMBULA, have received the above patient education materials/instructions and have verbalized understanding. If ambulance or transport services are being used I further acknowledge being given a choice of service. ?? If you need to contact me, please call me at this number: . Patient/Wood Crafter Name: Patient/Wood Crafter Signature: Relationship to Patient: Witness Name/Signature: Date: * Therese Beckford RN: PERFORM, SIGN, VERIFY Event Display: Patient Education Handout Authored Date: [id number] * Therese Beckford RN: PERFORM Event Display: Patient Education Leaflets Authored Date: [id number] Recognizing Labor ?? 58917 Recognizing Labor The beginning of labor is [...] ?? Last Reviewed Date: 2022 ?? [employer]. All rights reserved. This information is not intended as a substitute for professional medical care. Always follow your healthcare professional's instructions. ?? * Therese Beckford RN: PERFORM Event Display: Patient Education Leaflets Authored Date: [id number] Kick Counts ?? 17677 Kick Counts It???s normal to worry about [...] day. ?? Last Reviewed Date: 2022 ?? [employer]. All rights reserved. This information is not intended as a substitute for professional medical care. Always follow your healthcare professional's instructions. ?? * Therese Beckford RN: PERFORM Event Display: Patient Education Leaflets Authored Date: [id number] Adapting to : Third Trimester ?? 214[address] Adapting to : Third Trimester Although common during , some discomforts may seem worse in the final weeks. Simple lifestyle changes can help. Take care of yourself. And ask your partner to help out with small tasks. Limiting leg problems Ways to combat leg issues: ??? Wear support hose all day. ??? Don't wear snug shoes or clothes thatbind, such as tight pants and socks with elastic tops. ??? Sit with your feet and legs raised often. ?? Caring for your breasts Tips to follow include: ??? Wash with plain water. Don't use harsh soaps or rubbing alcohol. They may cause dryness. ??? Wear a nursing bra for extra support. It can also hide any leaks from your nipples. ?? Controlling hemorrhoids Ways to prevent hemorrhoids include: ??? Eat foods that are high in fiber. Also exercise and drink enough fluids. This will reduce constipation and hemorrhoids. ??? Sleep and nap on your side. This limits pressure on the veins??of your rectum. ??? Try not to stand or sit for long periods. ?? Controlling back pain As your body changes during , your back must work in new ways. Back pain has many causes. Physical changes in your body can strain your back and its supporting muscles. Also hormones increase during . This can affect how??your muscles and joints work together. All of these changescan lead to pain. Pain may be felt in the upper or lower back. Pain is also common in the pelvis. Some womenhave sciatica. This is pain caused by pressure on the sciatic nerve running down the back of the leg. Ice or heat may help. Your provider may advise massage therapy or a chiropractor. Sleep on your left side with a pillow between your knees. Use a brace or support device. Ask your provider for speci fic tips and exercises to help control your back pain. ?? Tips to help you rest Good rest and sleep will help you feel better. Here are some ideas: ??? Ask your partner to massageyour shoulders, neck, or back. ??? Limit the errands you do each day. ??? Lie down in the afternoonor after work for a few minutes. ??? Take a warm bath before you go to sleep. ??? Drink warm milk or teas without caffeine. ??? Don't drink coffee, black tea, and cola. ?? Stopping heartburn ??? Don't eat spicy, greasy, fried,??or acidic foods. ??? Eat small amounts more often. Eat slowly. ??? Wait 2 hours after eating before lying down. ??? Sleep with your upper body raised 6 inches. ?? Managing mood swings Ways to manage mood swings include: ??? Know that mood changes are normal. ??? Exercise often, but get plenty of rest. ??? Address any concerns and limit stress. Talking to your partner, other women,or your healthcare provider may help. ?? Dealing with urinary frequency Tips to deal with having to urinate often include: ??? Drink plenty of water all day. But if you drink a lot in the evening, you may have to get up more in the night. ??? Limit coffee, black tea, andcola. ?? How daily issues affect your health Many things in your daily life impact your health. This can include transportation, money problems,housing, access to food, and child development instructor. If you can???t get to medical appointments, you may not receive the care you need. When money is tight, it may be difficult to pay for medicines. And living far from a grocery store can make it hard to buy healthy food. If you have concerns in any of these or other areas, talk with your healthcare team. They may know of local resources to assist you. Or they may have a staff person who can help. ?? Last Reviewed Date: 2020 ?? [employer]. All rights reserved. This information is not intended as a substitute for professional medical care. Always follow your healthcare professional's instructions. ?? Patient Care team information Care Team Personnel Name: Teresa MATTHEWS, Hali Position: [facility] AMB Nurse Member Role: Primary Care Nurse Name: Not on Staff, PCP Position: [facility] Physician (General Medicine) Member Role: PCP Name: Jacqueline Sales RN Position: [facility] RN Member Role: Primary Care Nurse Care Team Related Persons Name: NOÉ GUILLAUME Address: [address] [place] [address] Name: HUSEYIN MERCADO Address: home [address] [place] [address] Name: SHANON IZAGUIRRE Address: home [address] [facility] [place] [address]
--- OUTSIDE RECORDS SUMMARY | 2023-01-18 06:18 | XMS_ITS | Continuity of Care Document ---
Author Name Unknown Organization [facility] Address [address] [place] [address]- Care Team Providers Care Siding Applicator Name Role Phone Sara JOHNSTON, Michelle Primary Care Physician Encounter [facility] Date(s): 10/01/22 - 10/31/[address] [address]- Allergies, Adverse Reactions, Alerts Substance Reaction Severity Status Strawberries itchy throat Resolved CeleXA Rash Active Immunizations Given and Recorded Vaccine Date Status Refusal Reason tetanus/diphtheria/pertussis, acel(Tdap) 12/27/21 Given Medications acetaminophen 325 mg oral tablet 650 mg, By Mouth, Every 4 hours, (1-3), may give 325mg per patient preference and re-dose with 325mg within 4 hours, if needed. Patient should only receive a total of 650mg of Acetaminophen every 4 hours., # 90 tablet, Refills 0, Tot. Refills 0, Sameera... Start Date: 04/01/22 Status: Ordered clotrimazole 1% topical cream 1 application, Topically, 2 times a day, # 45 Gm, 0 Refills, Maintenance, 09/28/22 12:20:00 EDT, Cream, [id number], Partial fill upon patient request if the prescription is for a schedule II opioid drug., 1 application Topically 2 times a day,... Start Date: 09/28/22 Status: Ordered Diflucan 150 mg oral tablet 1 tablet = 150 mg, By Mouth, Once, # 1 tablet, 0 Refills, Soft Stop, 09/28/22 12:18:00 EDT, Tablet,[id number], Partial fill upon patient request if the prescription is for a schedule II opioid drug., 164, cm, 09/28/22 10:32:00 EDT, Height, 10... Start Date: 09/28/22 Status: Ordered famotidine 20 mg oral tablet See Instructions, TAKE 1 TABLET BY MOUTH EVERYDAY AT BEDTIME, # 30 tablet, Refills 1, Maintenance, 02/14/22 6:30:00 EST, Instructions Replace Required Details, Route to Pharmacy Electronically, [id number], 164, cm, 02/09/22 11:07:00 EST, Height,... Start [...] Refills, Maintenance, 08/13/21 12:58:00 EDT, REC Powder, [facility]/pharmacy #[id number], Partial fill upon patient requestif the prescription is for a schedule II opioid kat... Start Date: 08/13/21 Status: Ordered ondansetron 4 mg oral tablet, disintegrating = 4 mg, By Mouth, Every 6 hours, PRN Nausea & Vomiting, # 30 tablet, 1 Refills, Maintenance, 04/07/22 15:04:00 EST, Tablet, [facility]/pharmacy #[id number], Partial fill upon patient [...] Sex Patient Care team information Care Team Related Persons Name: NOÉ GUILLAUME Address: [address] [facility] [place] [address] Name: ISHA MERCADO Address: [employer] Address: home [address] [place] [address] Name: HUSEYIN MERCADO Address: home [address] [facility] [place] [address] Name: SHANON IZAGUIRRE Address: home [address] [place] [address] [place] [address]
--- OUTSIDE RECORDS SUMMARY | 2023-01-18 06:18 | XMS_ITS | Continuity of Care Document ---
Author Name Unknown Organization [facility] ter Address [address] [place] [address]- Care Team Providers Care Prop Cutter Name Role Phone Sara JOHNSTON, [facility] Phys[id number] Date[facility] 08/14/[facility] - 08/14/[address] [address]- [facility] Discharge Disposition: A-D/C Walkout Attending Physician: Not on Staff, Attending MD Admitting Physician: Not on Staff, Admitting MD Referring Physician: Not on Staff, Referring MD Allergies, Adverse Reactions, Alerts Substance Reaction [...] constipation(Confirmed) Active Former smoker(Confirmed) Active Obesity(Confirmed) Active Vital Signs Most recent to oldest [Reference Range]: 1 2 Oxygen Saturation [94-100 %] 100 % (08/14/19 4:34 PM) 99 % (08/14/19 1:45 PM) Pulse Rate [55-90 bpm] 80 bpm (08/14/19 4:34 PM) 80 bpm (08/14/19 1:45 PM) Blood Pressure [90-138/55-84 mm Hg] 123/ 70mm Hg (08/14/19 4:34 PM) 114/70mm Hg (08/14/19 1:45 PM) Respiratory Rate [16-30 br/min] 16 br/mi n (08/14/19 4:34 PM) 20 br/min (08/14/19 1:45 PM) Temperature [96.8-100.4 DegF] 98.8 DegF (08/14/19 4:34 PM) 99.3 DegF (08/14/19 1:45 PM) Mode of Delivery (Oxygen) Room air (08/14/19 4:34 PM) Room air (08/14/19 1:45 PM) Blood pressure sites Arm, right (08/14/19 4:34 PM) Arm, right (08/14/19 1:45 PM) Temperature Route Oral (08/14/19 4:34 PM) Oral (08/14/19 1:45 PM) Social History Social History Type Response Smoking Status Former smoker, quit more than 30 days ago entered on: 11/16/18 Sex
--- OUTSIDE RECORDS SUMMARY | 2023-01-18 06:18 | XMS_ITS | Continuity of Care Document ---
Author Name Unknown Organization [facility] Address [address] [place] [address]- Care Team Providers Care Measurer Name Role Phone Sara JOHNSTON, Michelle Primary Care Physician Encounter [facility] Date(s): 10/07/20 - 11/06/[address] [address]- Allergies, Adverse Reactions, Alerts Substance Reaction Severity Status Strawberries itchy throat Active CeleXA Active Medications Aviane 100 mcg-20 mcg oral tablet 1 tablet, By Mouth, Daily, # 84 tablet, 1 Refills, Maintenance, 10/04/20 13:19:00 EDT, Tablet, [id number], Partial fill upon patient [...] Soft Stop, 08/27/20 10:22:00 EDT, Tablet, [id number], 165, cm, 12/26/19 14:45:00 EDT, Height, 119, [...]
--- OUTSIDE RECORDS SUMMARY | 2023-01-18 06:18 | XMS_ITS | Continuity of Care Document ---
Author Name Unknown Organization [facility] Address [address] [place] [address]- Care Team Providers Care Purification Operator Helper Name Role Phone Sara JOHNSTON, Michelle Primary Care Physician En[place] [facility] [place] Date(s): 08/08/19 - 08/15/[address] [address]- [facility] Attending Physician: Michael JOHNSTON, Fabrice Lim Allergies, Adverse Reactions, Alerts Substance Reaction Severity [...] Most recent to oldest [Reference Range]: 1 Height 165 cm (08/08/19 3:25 PM) Social History Social History Type Response Smoking Status Former smoker, quit more than 30 days ago entered on: 11/16/18 Sex
--- OUTSIDE RECORDS SUMMARY | 2023-01-18 06:18 | XMS_ITS | Continuity of Care Document ---
Author Name Unknown Organization [facility] Address [address] [place] [address]- Care Team Providers Care Heater Mechanic Name Role Phone Sara JOHNSTON, Michelle Primary Care Physician [place] [facility] [place]s): 11/13/19 - 12/13/19 [facility] [address] [address]- [facility] Allergies, Adverse Reactions, Alerts Substance [...]
--- OUTSIDE RECORDS SUMMARY | 2023-01-18 06:18 | XMS_ITS | Continuity of Care Document ---
Author Name Unknown Organization [facility] Address [address] [place] [address]- Care Team Providers Care Technical Report Writer Name Role Phone Sara JOHNSTON, Michelle Primary Care Physician Encounter [facility] Date(s): 01/04/22 - 02/03/[address] [address]- Allergies, Adverse Reactions, Alerts Substance Reaction Severity Status Strawberries itchy throat Resolved CeleXA Active Immunizations Given and Recorded Vaccine Date Status Refusal Reason tetanus/diphtheria/pertussis, acel(Tdap) 12/27/21 Given Medications famotidine 20 mg oral tablet 20 mg, 1, tablet, By Mouth, Daily at bedtime, # 30 tablet, Refills 1, Tot. Refills 1, Maintenance, 10/09/21 0:42:00 EDT, Route to Pharmacy Electronically, [facility]/pharmacy #[id number], Partial fill upon patient request if [...] Refills, Maintenance, 07/21/21 11:25:00 EDT, Chew Tablet, [facility]/pharmacy #[id number], Partial fill upon patient request if [...] Team Personnel Name: Hali Moore RN Position: [facility] Nurse Member Role: Primary Care Nurse Name: Jacqueline Sales RN Position: [facility] RN Member Role: Primary Care Nurse Care Team Related Persons Name: NOÉ GUILLAUME Address: home [address] [place] [address] Name: HUSEYIN MERCADO Address: home [address] [facility] [place] Name: SHANON IZAGUIRRE Address: home [address] [place] [address] [place] [address]
--- OUTSIDE RECORDS SUMMARY | 2023-01-18 06:18 | XMS_ITS | Continuity of Care Document ---
Author Name Unknown Organization [facility] Address [address] [place] [address]- Care Team Providers Care Panel Raiser Operator Name Role Phone Sara JOHNSTON, Michelle Primary Care Physician En[place] [facility] Date(s): 06/23/21 - 07/23/[address] [address]- Allergies, Adverse Reactions, Alerts Substance Reaction Severity Status Strawberries itchy throat Active CeleXA Active Medications Lexapro 5 mg oral tablet 1 tablet = 5 mg, By Mouth, Daily, # 30 tablet, 0 Refills, Maintenance, 03/06/21 12:31:00 EST, Tablet, Partial fill upon patient request if the prescription is for a schedule II opioid drug. Start Date: 03/06/21 Status: Ordered multivitamin, Multivitamins oral tablet, chewable 1 tablet, Chew, Daily, # 90 tablet, 2 Refills, Maintenance, 07/21/21 11:25:00 EDT, Chew Tablet, [facility]/pharmacy #[id number], Partial fill upon patient request if the [...]
--- OUTSIDE RECORDS SUMMARY | 2023-01-18 06:18 | XMS_ITS | Continuity of Care Document ---
Author Name Unknown Organization [facility] Address [address] [place] [address]- Care Team Providers Care Director Of Revenue Cycle Management Name Role Phone Sara JOHNSTON, Michelle Primary Care Physician Encounter [facility] [place] Date(s): 08/09/21 - 09/08/[address] [address]- Allergies, Adverse Reactions, Alerts Substance Reaction Severity Status Strawberries itchy throat Active CeleXA Active Medications Colace sodium 100 mg oral capsule 100 mg, 1, capsule, By Mouth, Daily, PRN, # 90 capsule, Refills 1, Tot. Refills 1, Maintenance, forconstipation, 08/16/21 21:04:00 EDT, Route to Pharmacy Electronically, [facility]/pharmacy #[id number], Partial fill upon [...] Refills, Maintenance, 08/13/21 12:58:00 EDT, REC Powder, [facility]/pharmacy #[id number], Partial fill upon patient requestif the prescription is for a schedule II opioid kat... Start Date: 08/13/21 Status: Ordered multivitamin, Multivitamins oral tablet, chewable 1 tablet, Chew, Daily, # 90 tablet, 2 Refills, Maintenance, 07/21/21 11:25:00 EDT, Chew Tablet, [facility]/pharmacy #[id number], Partial fill upon patient request if the prescription is for a schedule II opioid drug., 1 tablet Chew Daily, 165, cm, 06/22/21 18:15:0... Start Date: 07/21/21 Status: Ordered Unisom 25 mg oral tablet 1 tablet = 25 mg, By Mouth, Daily at bedtime, # 30 tablet, 1 Refills, Acute 10/10/21 11:49:00 EDT, 08/09/21 11:49:00 EDT, [facility]/pharmacy #[id number], Partial fill upon [...]
--- OUTSIDE RECORDS SUMMARY | 2023-01-18 06:18 | XMS_ITS | Continuity of Care Document ---
Author Name Unknown Organization [facility] Address [address] [place] [address]- Care Team Providers Care Can Cutter Name Role Phone Sara JOHNSTON, Michelle Primary Care Physician [id number] Date[facility] 07/05/20 - 08/11/[address] [address]- Attending Physician: Not on Staff, Attending MD [...]
--- OUTSIDE RECORDS SUMMARY | 2023-01-18 06:18 | XMS_ITS | Continuity of Care Document ---
Author Name Unknown Organization [facility] Address [address], [address] [place] [address]- Care Team Providers Care Line Haul Driver Name Role Phone Sara JOHNSTON, Michelle Primary Care Phys[id number] Date[facility] 09/28/20 - 10/28/20 [facility] [address], [address] [place] [address]- Allergies, Adverse Reactions, Alerts Substance Reaction Severity [...]
--- OUTSIDE RECORDS SUMMARY | 2023-01-18 06:18 | XMS_ITS | Continuity of Care Document ---
Author Name Unknown Organization [facility] Address [address] [place] [address]- Care Team Providers Care Communications Equipment Operator Name Role Phone Sara JOHNSTON, Michelle Primary Care Physician Encounter [facility] Date(s): 09/26/22 - 10/26/[address] [address]- Allergies, Adverse Reactions, Alerts Substance Reaction Severity [...] Replace Required Details, Route to Pharmacy Electronically, [facility] STORE [id number], 164, cm, 02/09/22 11:07:00 EST, Height,... Start [...] Refills, Maintenance, 08/13/21 12:58:00 EDT, REC Powder, [facility]/pharmacy #[id number], Partial fill upon patient requestif the prescription is for a schedule II opioid kat... Start Date: 08/13/21 Status: Ordered ondansetron 4 mg oral tablet, disintegrating = 4 mg, By Mouth, Every 6 hours, PRN Nausea & Vomiting, # 30 tablet, 1 Refills, Maintenance, 04/07/22 15:04:00 EST, Tablet, [facility]/pharmacy #[id number], Partial fill upon patient request [...] Team Personnel Name: Teresa MATTHEWS, Hali Position: [facility] Nurse Member Role: Primary Care Nurse Care Team Related Persons Name: NOÉ GUILLAUME Address: home [address] [place] [address] Name: ISHA MERCADO Address: [employer] Address: home [address] [place] [address] Name: HUSEYIN MERCADO Address: home [address] [place] [address] Name: SHANON IZAGUIRRE Address: home [address] [place] [address]
--- OUTSIDE RECORDS SUMMARY | 2023-01-18 06:18 | XMS_ITS | Continuity of Care Document ---
Author Name Unknown Organization [facility] Address [address], [address]t [place] [address]- Care Team Providers Care City Assessor Name Role Phone Sara JOHNSTON, Michelle Primary Care Physician [facility] [id number] Date(s): 12/27/21 - 01/26/22 [facility] [address], [address]th [place] [address]- Allergies, Adverse Reactions, Alerts Substance Reaction Severity Status Strawberries itchy throat Resolved CeleXA Active Immunizations Given and Recorded Vaccine Date Status Refusal Reason tetanus/diphtheria/pertussis, acel(Tdap) 12/27/21 Given Medications famotidine 20 mg oral tablet 20 mg, 1, tablet, By Mouth, Daily at bedtime, # 30 tablet, Refills 1, Tot. Refills 1, Maintenance, 10/09/21 0:42:00 EDT, Route to Pharmacy Electronically, [facility]/pharmacy #[id number], Partial fill [...] Refills, Maintenance, 07/21/21 11:25:00 EDT, Chew Tablet, [facility]/pharmacy #[id number], Partial [...] Persons Name: NOÉ GUILLAUME Address: home [address] [facility] [address] Name: HUSEYIN MERCADO Address: home [address] [facility] [address] Name: SHANON IZAGUIRRE Address: home [address] [place] [address] [place] [address]
--- OUTSIDE RECORDS SUMMARY | 2023-01-18 06:18 | XMS_ITS | Continuity of Care Document ---
Author Name Unknown Organization [facility] Address [address] [place] [address]- Care Team Providers Care Radio Antenna Installer Name Role Phone Sara JOHNSTON, Michelle Primary Care Physician Encounter [facility] Date(s): 07/05/20 - 08/04/[address] [address]- Allergies, Adverse Reactions, Alerts Substance Reaction Severity [...]
--- OUTSIDE RECORDS SUMMARY | 2023-01-18 06:18 | XMS_ITS | Continuity of Care Document ---
Author Name Unknown Organization [facility] Address [address] [place] [address]- Care Team Providers Care Midwife Practitioner Name Role Phone Sara JOHNSTON, Michelle Primary Care Physician [place] [facility] [place](s[place] 03/28/22 - 04/27/[address] [address]- Allergies, Adverse Reactions, Alerts Substance Reaction Severity Status CeleXA Rash Active Strawberries itchy throat Resolved Immunizations Given [...] Replace Required Details, Route to Pharmacy Electronically, [facility] STORE [id number], 164, cm, 02/09/22 11:07:00 EST, Height,... Start [...] Refills, Maintenance, 08/13/21 12:58:00 EDT, REC Powder, [facility]/pharmacy #[id number], Partial fill upon patient requestif the prescription is for a schedule II opioid kat... Start Date: 08/13/21 Status: Ordered ondansetron 4 mg oral tablet, disintegrating = 4 mg, By Mouth, Every 6 hours, PRN Nausea & Vomiting, # 30 tablet, 1 Refills, Maintenance, 04/07/22 15:04:00 EST, Tablet, [facility]/pharmacy #[id number], Partial fill upon patient request [...] Persons Name: NOÉ GUILLAUME Address: home [address] [place] [address] Name: ISHA MERCADO Address: [employer] Address: home [address] [place] [address] Name: HUSEYIN MERCADO Address: home [address] [place] [address] Name: SHANON IZAGUIRRE Address: home [address] [address]
--- OUTSIDE RECORDS SUMMARY | 2023-01-18 06:18 | XMS_ITS | Continuity of Care Document ---
Author Name Unknown Organization [facility] Address [address] [place] [address]- Care Team Providers Care Dairy Grazer Name Role Phone Sara JOHNSTON, Michelle Primary Care Physician [place] [facility] [place] 07/12/20 - 08/11/[address] [address]- Attending Physician: Admtr, [id number] Admitting Physician: Admtr, [id number] Referring Physician: [...]
--- OUTSIDE RECORDS SUMMARY | 2023-01-18 06:18 | XMS_ITS | Continuity of Care Document ---
Author Name Unknown Organization [facility] Address [address] [place] [address]- Care Team Providers Care Plating Equipment Tender Name Role Phone Sara JOHNSTON, Michelle Primary Care Physician [place] [facility] Date(s): 04/14/20 - 05/14/[address] [address]- Allergies, Adverse Reactions, Alerts Substance Reaction Severity [...]
--- OUTSIDE RECORDS SUMMARY | 2023-01-18 06:18 | XMS_ITS | Continuity of Care Document ---
Author Name Unknown Organization [facility] Address [address] [place] [address]- Care Team Providers Care Ad Operations Coordinator Name Role Phone Sara JOHNSTON, [facility] Primary Care Physician [id number] Date[facility]s): 09/08/19 - 10/30/[address] [address]- [facility] Attending Physician: Not on Staff, Attending MD [...]
--- OUTSIDE RECORDS SUMMARY | 2023-01-18 06:18 | XMS_ITS | Continuity of Care Document ---
Author Name Unknown Organization [facility] Address [address] [place] [address]- Care Team Providers Care City Carrier Name Role Phone Sara JOHNSTON, Michelle Primary Care Physician Encounter [facility] Date(s): 11/22/20 - 12/22/[address] [address]- Allergies, Adverse Reactions, Alerts Substance Reaction Severity Status Strawberries itchy throat Active CeleXA Active Medications Valerie 30 mg oral tablet 1 tablet = 30 mg, By Mouth, Once, # 1 tablet, 5 Refills, Soft Stop, 11/24/20 20:25:00 EDT, [facility]/pharmacy #[id number], Partial fill upon patient request if the prescription is for a schedule II opioid drug.,165, cm, 11/24/20 17:01:00 EDT, Height, 119, kg, 09... Start Date: 11/24/20 Status: Ordered Problem List Condition Effective Dates Status Health Status Inform ant Chronic constipation(Confirmed) Active Former smoker(Confirmed) Active Obesity(Confirmed) Active Infertility management(Confirmed) Active Social History Social History Type Response Smoking Status Former smoker, quit more than 30 days ago entered on: 11/16/18 Sex
--- OUTSIDE RECORDS SUMMARY | 2023-01-18 06:18 | XMS_ITS | Continuity of Care Document ---
Author Name Unknown Organization [facility] Address [address] [place] [address]- Care Team Providers Care Waste Water Plant Operator Name Role Phone Sara JOHNSTON, Elviraclif Primary Care Physician Encounter [facility] Date(s): 09/28/22 - 10/28/[address] [address]- Attending Physician: Anay Coronel Admitting Physician: AdmAnay [...] Refills, Maintenance, 09/28/22 12:20:00 EDT, Cream, [id number], Partial fill upon patient request if the prescription is for a schedule II opioid drug., 1 application Topically 2 times a day,... Start Date: 09/28/22 Status: Ordered Diflucan 150 mg oral tablet 1 tablet = 150 mg, By Mouth, Once, # 1 tablet, 0 Refills, Soft Stop, 09/28/22 12:18:00 EDT, Tablet,[facility]/pharm[facility] #[id number], Partial fill upon patient request if the prescription is for a schedule II opioid drug., 164, cm, 09/28/22 10:32:00 EDT, Height, 10... Start Date: 09/28/22 Status: Ordered famotidine 20 mg oral tablet See Instructions, TAKE 1 TABLET BY MOUTH EVERYDAY AT BEDTIME, # 30 tablet, Refills 1, Maintenance, 02/14/22 6:30:00 EST, Instructions Replace Required Details, Route to Pharmacy Electronically, [facility] [id number], 164, cm, 02/09/22 11:07:00 EST, Height,... Start [...] Refills, Maintenance, 08/13/21 12:58:00 EDT, REC Powder, [facility]/pharmacy #[id number], Partial fill upon patient requestif the prescription is for a schedule II opioid kat... Start Date: 08/13/21 Status: Ordered ondansetron 4 mg oral tablet, disintegrating = 4 mg, By Mouth, Every 6 hours, PRN Nausea & Vomiting, # 30 tablet, 1 Refills, Maintenance, 04/07/22 15:04:00 EST, Tablet, [facility]/pharmacy #[id number], Partial fill upon patient request [...] 30 days ago entered on: 08/16/21 Sex Radiology * Event Display: X-Ray Spine, Non- BH Authored Date: [id number] Patient Care team information Care Team Related Persons Name: NOÉ GUILLAUME Address: [address] [place] [address] Name: ISHA MERCADO Address: [employer] Address: home [address] [place] [address] Name: HUSEYIN MERCADO Address: home [address] [facility] [place] [address] Name: SHANON IZAGUIRRE Address: home [address] [place] [address] [place] [address]
--- OUTSIDE RECORDS SUMMARY | 2023-01-18 06:18 | XMS_ITS | Continuity of Care Document ---
Author Name Unknown Organization [facility] Address [address] [place] [address]- Care Team Providers Care Legal Researcher Name Role Phone Michelle Ruiz MD Primary Care Physician [place] [facility] [place] 10[place]08/[place] - 10/09/[address] [address]- Discharge Disposition: A-D/C Home Attending Physician: Seda Pimentel DO Admitting Physician: Seda Pimentel DO Referring Physician: Seda Pimentel DO Allergies, Adverse Reactions, Alerts Substance Reaction Severity Status Strawberries itchy throat Active CeleXA Active Medications Colace sodium 100 mg oral capsule 100 mg, 1, capsule, By Mouth, Daily, PRN, for 90 days, # 90 capsule, Refills 1, Tot. Refills 1, Hard Stop 02/12/22 21:04:00 EST, for constipation, 08/16/21 21:04:00 EDT, Route to Pharmacy Electronically, [facility]/pharmacy #[id number], Partial fill upon patient r... Start Date: 08/16/21 Stop Date: 02/12/22 Status: Ordered Colace sodium 100 mg oral capsule 100 mg, 1, capsule, By Mouth, Daily, PRN, # 60 capsule, Refills 3, Tot. Refills 3, Maintenance, forconstipation, 02/12/22 21:04:00 EST, Route to Pharmacy Electronically, [facility]/pharmacy #[id number], Partial fill upon patient request if the prescription is for... Start Date: 02/12/22 Status: Ordered famotidine 20 mg oral tablet 20 mg, 1, tablet, By Mouth, Daily at bedtime, # 30 tablet, Refills 1, Tot. Refills 1, Maintenance, 10/09/21 0:42:00 EDT, Route to Pharmacy Electronically, [facility]/pharmacy #[id number], Partial fill upon patient request if the prescription is for a schedule II o... Start Date: 10/09/21 Status: Ordered Lexapro 5 mg oral tablet [...] Refills, Maintenance, 08/13/21 12:58:00 EDT, REC Powder, [facility]/pharmacy #[id number], Partial fill upon patient requestif the prescription is for a schedule II opioid kat... Start Date: 08/13/21 Status: Ordered multivitamin, Multivitamins oral tablet, chewable 1 tablet, Chew, Daily, # 90 tablet, 2 Refills, Maintenance, 07/21/21 11:25:00 EDT, Chew Tablet, [facility]/pharmacy #[id number], Partial fill upon patient request if the prescription is for a schedule II opioid drug., 1 tablet Chew Daily, 165, cm, 06/22/21 18:15:0... Start Date: 07/21/21 Status: Ordered Unisom 25 mg oral tablet 1 tablet = 25 mg, By Mouth, Daily at bedtime, # 30 tablet, 1 Refills, Acute 10/10/21 11:49:00 EDT, 08/09/21 11:49:00 EDT, [facility]/pharmacy #[id number], Partial fill upon patient request [...] continue to take medication during . Results Orders for Microbiology Reports Name Date Urine Culture 10/08/21 Microbiology Reports TEST:Urine Culture STATUS:Auth (Verified) BODY SITE: SOURCE:URINE COLLECTED DATE/TIME:10/08/21 6:50 PM Urine Culture SPECIMEN DESCRIPTION : URINE CLEAN CATCH/MIDSTREAM SPECIAL REQUESTS : NONE CULTURE : NO GROWTH REPORT STATUS : FINAL 10/09/2021 Vital Signs Most recent to oldest [Reference Range]: 1 Weight 99.9 kg (10/08/21 6:19 PM) Oxygen Saturation [94-100 %] 99 % (10/08/21 6:19 PM) Pulse Rate [55-90 bpm] 98 bpm *H* (10/08/21 6:19 PM) Blood Pressure [90-138/55-84 mm Hg] 112/ 67mm Hg (10/08/21 6:19 PM) Respiratory Rate [16-30 br/min] 16 br/mi n (10/08/21 6:19 PM) Temperature [96.8-100.4 DegF] 98.0 DegF (10/08/21 6:19 PM) Blood pressure sites Arm, left (10/08/21 6:19 PM) Temperature Route Oral (10/08/21 6:19 PM) Weight Obtained Via Standing scale (10/08/21 6:19 PM) Social History Social History Type Response Smoking Status Former smoker, quit more than 30 days ago entered on: 08/16/21 Sex
--- OUTSIDE RECORDS SUMMARY | 2023-01-18 06:18 | XMS_ITS | Continuity of Care Document ---
Author Name Unknown Organization [facility] Address [address] [place] [address]- Care Team Providers Care Extrusion Manager Name Role Phone Sara JOHNSTON, Michelle Primary Care Physician En[place] [facility] Date(s): 12/01/19 - 12/31/[address] [address]- [facility] Allergies, Adverse Reactions, Alerts [...]
--- OUTSIDE RECORDS SUMMARY | 2023-01-18 06:18 | XMS_ITS | Continuity of Care Document ---
Author Name Unknown Organization [facility] Address [address] [place] [address]- Care Team Providers Care Surgical Garment Assembler Name Role Phone Sara JOHNSTON, Michelle Primary Care Physician En[place] [facility] Date(s): 08/31/20 - 09/30/[address] [address]- Allergies, Adverse Reactions, Alerts Substance Reaction Severity [...]
--- OUTSIDE RECORDS SUMMARY | 2023-01-18 06:18 | XMS_ITS | Continuity of Care Document ---
Author Name Unknown Organization [facility] Address [address] [place] [address]- Care Team Providers Care Rn Licensed Practical Name Role Phone Sara JOHNSTON, Michelle Primary Care Physician [place] [facility] Date(s): 01/13/22 - 02/12/[address] [address]- Allergies, Adverse Reactions, Alerts Substance Reaction Severity Status Strawberries itchy throat Resolved CeleXA Active Immunizations Given and Recorded Vaccine Date Status Refusal Reason tetanus/diphtheria/pertussis, acel(Tdap) 12/27/21 Given Medications famotidine 20 mg oral tablet 20 mg, 1, tablet, By Mouth, Daily at bedtime, # 30 tablet, Refills 1, Tot. Refills 1, Maintenance, 10/09/21 0:42:00 EDT, Route to Pharmacy Electronically, [facility]/pharmacy #[id number], Partial fill upon patient request if [...] Refills, Maintenance, 07/21/21 11:25:00 EDT, Chew Tablet, [facility]/pharmacy #[id number], Partial fill upon patient request if [...] Team Personnel Name: Hali Moore RN Position: [facility] Nurse Member Role: Primary Care Nurse Name: Jacqueline Sales RN Position: [facility] RN Member Role: Primary Care Nurse Care Team Related Persons Name: NOÉ GUILLAUME Address: home [address] [facility] [facility] [facility] [place] [id number] Name: HUSEYIN MERCADO Address: home [address] [place] [id number] Name: SHANON IZAGUIRRE Address: home [address] [place] [address]
--- OUTSIDE RECORDS SUMMARY | 2023-01-18 06:18 | XMS_ITS | Continuity of Care Document ---
Author Name Unknown Organization [facility] Address [address] [place] [address]- Care Team Providers Care Division Chair Name Role Phone Michelle Ruiz MD Primary Care Physician En[place] [facility] [place] Date(s): 08/16/21 - 09/15/[address] [address]- Allergies, Adverse Reactions, Alerts Substance Reaction Severity Status Strawberries itchy throat Active CeleXA Active Medications Colace sodium 100 mg oral capsule 100 mg, 1, capsule, By Mouth, Daily, PRN, for 90 days, # 90 capsule, Refills 1, Tot. Refills 1, Hard Stop 02/12/22 21:04:00 EST, for constipation, 08/16/21 21:04:00 EDT, Route to Pharmacy Electronically, [facility]/pharmacy #[id number], Partial fill upon patient r... Start Date: 08/16/21 Stop Date: 02/12/22 Status: Ordered Colace sodium 100 mg oral capsule 100 mg, 1, capsule, By Mouth, Daily, PRN, # 60 capsule, Refills 3, Tot. Refills 3, Maintenance, forconstipation, 02/12/22 21:04:00 EST, Route to Pharmacy Electronically, [facility]/pharmacy #[id number], Partial fill upon patient request [...] Refills, Maintenance, 08/13/21 12:58:00 EDT, REC Powder, [facility]/pharmacy #[id number], Partial fill upon patient requestif [...]
--- OUTSIDE RECORDS SUMMARY | 2023-01-18 06:18 | XMS_ITS | Continuity of Care Document ---
Author Name Unknown Organization [facility] Address [address] [place] [address]- Care Team Providers Care Internet Marketing Specialist Name Role Phone Sara JOHNSTON, Michelle Primary Care Physician [place] [facility] [place] 07/21/21 - 08/20/[address] [address]- Allergies, Adverse Reactions, Alerts Substance Reaction Severity Status Strawberries itchy throat Active CeleXA Active Medications Colace sodium 100 mg oral capsule 100 mg, 1, capsule, By Mouth, Daily, PRN, # 90 capsule, Refills 1, Tot. Refills 1, Maintenance, forconstipation, 08/16/21 21:04:00 EDT, Route to Pharmacy Electronically, [facility]/pharmacy #[id number], Partial fill upon patient request if [...] Refills, Maintenance, 08/13/21 12:58:00 EDT, REC Powder, [facility]/pharmacy #[id number], Partial fill upon patient requestif the prescription is for a schedule II opioid kat... Start Date: 08/13/21 Status: Ordered multivitamin, Multivitamins oral tablet, chewable 1 tablet, Chew, Daily, # 90 tablet, 2 Refills, Maintenance, 07/21/21 11:25:00 EDT, Chew Tablet, [facility]/pharmacy #[id number], Partial fill upon patient request if the prescription is for a schedule II opioid drug., 1 tablet Chew Daily, 165, cm, 06/22/21 18:15:0... Start Date: 07/21/21 Status: Ordered Unisom 25 mg oral tablet 1 tablet = 25 mg, By Mouth, Daily at bedtime, # 30 tablet, 1 Refills, Acute 10/10/21 11:49:00 EDT, 08/09/21 11:49:00 EDT, [facility]/pharmacy #[id number], Partial fill upon patient request if [...]
--- OUTSIDE RECORDS SUMMARY | 2023-01-18 06:18 | XMS_ITS | Continuity of Care Document ---
Author Name Unknown Organization [facility] ter Address [address] [place] [address]- Care Team Providers Care Locomotive Switch Operator Name Role Phone Michelle Ruiz MD Primary Care Physician [place] [facility] [place] - 11/27/[address] [address]- [facility] Attending Physician: Katheryn Gautam MD Admitting Physician: Katheryn Gautam MD Referring Physician: Mavis Diaz DO Allergies, Adverse Reactions, Alerts Substance Reaction Severity Status Strawberries itchy throat Active CeleXA Active Medications fluconazole 150 mg oral tablet 1 tablet = 150 mg, By Mouth, Once, Repeat dose if still having symptoms in 72 hours, # 2 tablet, 0 Refills, Soft Stop, 08/08/19 15:35:00 EDT, Tablet, [facility]/pharmacy #[id number], 165, cm, 08/08/19 15:25:00 EDT, Height, 116.5, kg, 03/26/19 15:20:00 EST, Dry Weight Start Date: 08/08/19 Status: Ordered ibuprofen 800 mg oral tablet 800 mg, 1, tablet, By Mouth, 3 times a day, # 30 tablet, Refills 0, Tot. Refills 0, Acute 12/07/19 2:29:00 EDT, 11/23/19 2:29:00 EDT, Route to Pharmacy Electronically, [facility]/pharmacy #[id number], 165, cm, 08/15/19 14:03:00 EDT, Height, 116.5, kg, 03/26/19 15:... Start Date: 11/23/19 Stop Date: 12/07/19 Status: Ordered oxyCODONE 5 mg oral capsule 1 tablet, By Mouth, Every 6 hours, PRN Pain , Severe, # 5 tablet, 0 Refills, Acute 12/07/19 2:30:00EDT, 11/23/19 2:29:00 EDT, [id number], Partial fill upon patient request, 165, cm, 08/14/2013:03:00 EDT, Height, 116.5, kg, 03/26/19 15:20:00... Start Date: 11/23/19 Stop Date: 12/07/19 Status: Ordered Tylenol 325 mg oral capsule 2 capsule = 650 mg, By Mouth, Every 4 hours, PRN Pain , Moderate, # 30 capsule, 0 Refills, Acute 12/02/19 2:29:00 EDT, 11/23/19 2:29:00 EDT, Capsule, [id number], 165, cm, 08/15/19 14:03:00 EDT, Height, 116.5, kg, 03/26/19 15:20:00 EST, Dry Weight Start Date: 11/23/19 Stop Date: 12/02/19 Status: Ordered Problem List Condition Effective Dates Status Health Status Inform ant Chronic constipation(Confirmed) Active Ovarian cyst(Confirmed) Active Former smoker(Confirmed) Active Obesity(Confirmed) Active Infertility management(Confirmed) Active Social History Social History Type Response Smoking Status Former smoker, quit more than 30 days ago entered on: 11/16/18 Sex
--- OUTSIDE RECORDS SUMMARY | 2023-01-18 06:18 | XMS_ITS | Continuity of Care Document ---
Author Name Unknown Organization [facility] Address [address] [place] [address]- Care Team Providers Care Adult Manager Name Role Phone Sara JOHNSTON, Michelle Primary Care Physician Encounter [facility] [place] Date(s): 09/29/19 - 10/29/19 [facility] [address] [address]- [facility] Allergies, Adverse Reactions, Alerts Substance [...]
--- OUTSIDE RECORDS SUMMARY | 2023-01-18 06:19 | XMS_ITS | Continuity of Care Document ---
Author Name Unknown Organization [facility] Address [address] [place] [address]- Care Team Providers Care Assistant Brand Manager Name Role Phone Sara JOHNSTON, Michelle Primary Care Physician [id number] Date(s): 06/22/21 - 07/22/[address] [address]- Attending Physician: Anay Coronel Admitting Physician: AdmAnay [...]
--- OUTSIDE RECORDS SUMMARY | 2023-01-18 06:19 | XMS_ITS | Continuity of Care Document ---
Author Name Unknown Organization [facility] ter Address [address] [place] [address]- Care Team Providers Care Metal Sprayer Name Role Phone Sara JOHNSTON, Michelle [id number]/26/[facility] - 03/26/[address] [address]- [facility] Encounter Diagnosis Headache(Final) - 03/26/19 Constipation(Final) - 03/26/19 Discharge Disposition: A-D/C Home Attending Physician: Bernice Huff DO Admitting Physician: Bernice Huff DO Referring Physician: Not on Staff, Referring MD Allergies, Adverse Reactions, Alerts Substance Reaction Severity Status Strawberries itchy throat Active CeleXA Active Medications Colace sodium 100 mg oral capsule 100 mg, 1, capsule, By Mouth, 2 times a day, PRN, # 60 capsule, Refills 3, Tot. Refills 3, Maintenance, for constipation, 11/16/18 18:15:59 EDT, Route to Pharmacy Electronically, [id number], [facility]/pharmacy #[id number] Start Date: 11/16/18 Status: Ordered Multivitamins By [...] constipation(Confirmed) Active Former smoker(Confirmed) Active Obesity(Confirmed) Active Results Radiology Reports * Exam Date Time Procedure Performing Provider Status 03/26/19 2:17 PM Abdomen AP Prema Crowdera; Au th (Verified) Notes: (Abdomen AP) Reason For Exam: Constipation RESULT: Abdomen AP Abdomen AP INDICATION: Constipation. COMPARISON: None. FINDINGS: Nonobstructive bowel gas pattern. Overall mild stool burden. No abnormal calcifications. No acute bony abnormalities. Bibasilar atelectasis. IMPRESSION: No evidence of bowel obstruction. Overall mild stool burden. I have personally reviewed the images and I agree with this report. WSN: [id number] Dictated By: Bradley Deal MD Dictated Date/Time: 03/26/19 2:31 pm Reviewed By: De Hooper MD Signed By: De Hooper MD Signed Date/Time: 03/26/19 2:36 pm Transcribed By: VICKI Transcribed Date/Time: 03/26/19 2:20 pm Vital Signs Most recent to oldest [Reference Range]: 1 2 3 Height 165 cm (03/26/19 3:20 PM) 165 cm (03/26/19 9:54 AM) Weight 116.5 kg (03/26/19 3:20 PM) 116.5 kg (03/26/19 9:54 AM) 116.5 kg (03/26/19 9:47 AM) Oxygen Saturation [94-100 %] 100 % (03/26/19 3:20 PM) 99 % (03/26/19 9:47 AM) 99 % (03/26/19 9:41 AM) Pulse Rate [55-90 bpm] 79 bpm (03/26/19 3:20 PM) 107 bpm *H* (03/26/19 9:47 AM) 114 bpm *H* (03/26/19 9:41 AM) Body Mass Index [18.5-24.99] 42.79 *>HHI* (03/26/19 3:20 PM) Blood Pressure [90-138/55-84 mm Hg] 101/63mm Hg (03/26/19 3:20 PM) 112/59mm Hg (03/26/19 9:47 AM) Respiratory Rate [16-30 br/min] 18 br/min (03/26/19 3:20 PM) 16 br/min (03/26/19 2:03 PM) 24 br/min (03/26/19 9:47 AM) Temperature [96.8-100.4 DegF] 98.0 DegF (03/26/19 3:20 PM) 99.4 DegF (03/26/19 9:47 AM) Mode of Delivery (Oxygen) Room air (03/26/19 3:20 PM) Room air (03/26/19 9:47 AM) Room air (03/26/19 9:41 AM) Blood pressure sites Arm, right (03/26/19 3:20 PM) Arm, right (03/26/19 9:47 AM) Temperature Route Oral (03/26/19 3:20 PM) Oral (03/26/19 9:47 AM) Dry Weight 116.5 kg (03/26/19 3:20 PM) 116.5 kg (03/26/19 9:54 AM) 116.5 kg (03/26/19 9:47 AM) Weight Obtained Via Standing scale (03/26/19 9:47 AM) Dry Weight Obtained Via Standing scale (03/26/19 9:47 AM) Social History Social History Type Response Smoking Status Former smoker, quit more than 30 days ago entered on: 11/16/18 Sex
--- OUTSIDE RECORDS SUMMARY | 2023-01-18 06:19 | XMS_ITS | Continuity of Care Document ---
Author Name Unknown Organization [facility] ter Address [address] [place] [id number]- Care Team Providers Care Seat Trimmer Name Role Phone Michelle Ruiz MD Primary Care Physician [place] [facility] [place] 08/10/21 - 08/10/[address] [address]- Discharge Disposition: Transferred to an intermediate care faci Attending Physician: Juan Connelly MD Admitting Physician: Juan Connelly MD Referring Physician: Not on Staff, Referring MD Allergies, Adverse Reactions, Alerts Substance Reaction Severity Status Strawberries itchy throat Active CeleXA Active Medications hydrocortisone 1% topical cream See Instructions, Topically 3 times a day for 5 days, # 45 Gm, 0 Refills, Maintenance, 07/27/21 9:51:00 EDT, [id number], Partial fill upon patient request if the prescription is for a schedule II opioid drug., Topically 3 times a day for 5 day... Start Date: 07/27/21 Status: Ordered Lexapro 5 mg oral tablet [...] Acute 10/10/21 11:49:00 EDT, 08/09/21 11:49:00 EDT, [facility]/pharmacy #[id number], Partial fill upon patient request if the prescription is for a schedule II opioid drug., 165, cm, 07/27/21 9:... Start Date: 08/09/21 Stop Date: 10/10/21 Status: Ordered Problem List Condition Effective Dates Status Health Status Inform ant Chronic constipation(Confirmed) Active Former smoker(Confirmed) Active Obese class II(Confirmed) Active Obesity(Confirmed) Active Infertility management(Confirmed) Active Vital Signs Most recent to oldest [Reference Range]: 1 Oxygen Saturation [94-100 %] 100 % (08/10/21 12:35 PM) Pulse Rate [55-90 bpm] 109 bpm *H* (08/10/21 12:35 PM) Mode of Delivery (Oxygen) Room air (08/10/21 12:35 PM) Social History Social History Type Response Smoking Status 10 or more cigarette s (1/2 pack or more)/day in last 30 days entered on: 03/06/21 Sex
--- OUTSIDE RECORDS SUMMARY | 2023-01-18 06:19 | XMS_ITS | Continuity of Care Document ---
Author Name Unknown Organization [facility] Address [address] [place] [phone]- Care Team Providers Care Pony Worker Name Role Phone Sara JOHNSTON, Michelle Primary Care Physician [place] [facility] [place] 07/27/[place] - 08/26/[address] [address]- Allergies, Adverse Reactions, Alerts Substance Reaction Severity Status Strawberries itchy throat Active CeleXA Active Medications Colace sodium 100 mg oral capsule 100 mg, 1, capsule, By Mouth, Daily, PRN, # 90 capsule, Refills 1, Tot. Refills 1, Maintenance, forconstipation, 08/16/21 21:04:00 EDT, Route to Pharmacy Electronically, [facility]/pharmacy #[id number], Partial fill upon [...] Refills, Maintenance, 07/21/21 11:25:00 EDT, Chew Tablet, [facility]/pharmacy #[id number], Partial fill upon patient request if the prescription is for a schedule II opioid drug., 1 tablet Chew Daily, 165, cm, 06/22/21 18:15:0... Start Date: 07/21/21 Status: Ordered Unisom 25 mg oral tablet 1 tablet = 25 mg, By Mouth, Daily at bedtime, # 30 tablet, 1 Refills, Acute 10/10/21 11:49:00 EDT, 08/09/21 11:49:00 EDT, [facility]/pharmacy #[id number], Partial fill upon [...]
--- OUTSIDE RECORDS SUMMARY | 2023-01-18 06:19 | XMS_ITS | Continuity of Care Document ---
Author Name Unknown Organization [facility] Address [address] [place] [phone]- Care Team Providers Care Store Leader Name Role Phone Sara JOHNSTON, [facility] Primary Care Physician Encounter [facility] [place] Date(s): 11/22/20 - 12/23/[address] [address]- Attending Physician: Not on Staff, Attending MD Allergies, Adverse Reactions, Alerts Substance Reaction Severity Status Strawberries itchy throat Active CeleXA Active Medications Valerie 30 mg oral tablet 1 tablet = 30 mg, By Mouth, Once, # 1 tablet, 5 Refills, Soft Stop, 11/24/20 20:25:00 EDT, [facility]/pharmacy #[id number], Partial fill upon patient request if the [...]
--- OUTSIDE RECORDS SUMMARY | 2023-01-18 06:19 | XMS_ITS | Continuity of Care Document ---
Author Name Unknown Organization [facility] ter Address [address] [place] [id number]- Care Team Providers Care Sr. Merchandise Planner Name Role Phone Sara JOHNSTON, Michelle Primary Care Physician Encounter [facility] [place] Date(s): 03/29/22 - 04/01/[address] [address]- Discharge Disposition: A-D/C Home Attending Physician: Sher [...] 0, Sameera... Start Date: 04/01/22 Status: Ordered Acetaminophen Tablet 650 mg, Tablet, By Mouth, (1-3), may give 325mg per patient preference and re- dose with 325mg within 4 hours, if needed. Patient should only receive a total of 650mg of Acetaminophen every 4 hours., 04/01/22 11:00:00 EST Start Date: 04/01/22 Stop Date: 04/01/22 Status: Completed docusate sodium 100 mg oral capsule 100 mg, 1, capsule, By Mouth, 2 times a day, # 60 capsule, Refills 0, Tot. Refills 0, Maintenance, 04/01/22 4:13:00 EST, [id number] Partial fill upon patient request if the prescription is for a schedule II o... Start Date: 04/01/22 Status: Ordered famotidine 20 mg oral tablet See Instructions, TAKE 1 TABLET BY MOUTH EVERYDAY AT BEDTIME, # 30 tablet, Refills 1, Maintenance, 02/14/22 6:30:00 EST, Instructions Replace Required Details, Route to Pharmacy Electronically, [id number], 164, cm, 02/09/22 11:07:00 EST, Height,... Start [...] Tot. Refills... Start Date: 04/01/22 Status: Ordered Ibuprofen Tablet 800 mg, Tablet, By Mouth, (4-6), may give 400mg per patient preference and re- dose with 400mg within 8 hours, if needed. Patient should only receive a total of 800mg of Ibuprofen every 8 hours., 04/01/22 7:00:00 EST Start Date: 04/01/22 Stop Date: 04/01/22 Status: Completed MiraLax oral powder for reconstitution = 17 Gm, By Mouth, Daily, PRN Constipation, dissolve in water before taking, # 255 Gm, 0 Refills, Maintenance, 08/13/21 12:58:00 EDT, REC Powder, [facility]/pharmacy #[id number], Partial fill upon patient requestif the prescription is for a schedule II opioid kat... Start Date: 08/13/21 Status: Ordered multivitamin, Multivitamins oral tablet, chewable 1 tablet, Chew, Daily, # 90 tablet, 2 Refills, Maintenance, 07/21/21 11:25:00 EDT, Chew Tablet, [facility]/pharmacy #[id number], Partial fill upon patient request if the prescription is for a schedule II opioid drug., 1 tablet Chew Daily, 165, cm, 06/22/21 18:15:0... Start Date: 07/21/21 Status: Ordered oxyCODONE 5 mg oral tablet 5 mg, 1, tablet, By Mouth, Every 3 hours, PRN, (7-10), # 10 tablet, Refills 0, Tot. Refills 0, Maintenance, Pain , Severe, 04/01/22 4:14:00 EST, Route to Pharmacy Electronically, [facility]/pharmacy #[id number], Partial fill upon patient request if the prescriptio... Start Date: 04/01/22 Status: Ordered Problem List Condition Confirmation Course [...] to continue to take medication during . Procedures Procedure Date Related Diagnosis Body Site Status delivery only; 03/30/22 C ompleted Vital Signs Most recent to oldest [Reference Range]: 1 2 3 Height 164 cm (04/01/22 8:45 AM) 164 cm (04/01/22 12:21 AM) 164 cm (03/31/22 4:15 PM) Weight 108 kg (03/29/22 4:44 PM) 108.0 kg (03/29/22 1:03 PM) Oxygen Saturation [94-100 %] 98 % (04/01/22 8:45 AM) 100 % (04/01/22 12:21 AM) 99 % (03/31/22 4:15 PM) Pulse Rate [55-90 bpm] 74 bpm (04/01/22 8:45 AM) 78 bpm (04/01/22 12:21 AM) 70 bpm (03/31/22 4:15 PM) Body Mass Index [18.5-24.99 kg/m2] 40.15 kg/m2 *>HHI* (03/29/22 4:44 PM) Blood Pressure [90-138/55-84 mm Hg] 112/61mm Hg (04/01/22 8:45 AM) 109/63mm Hg (04/01/22 12:21 AM) 106/59mm Hg (03/31/22 4:15 PM) Respiratory Rate [16-30 br/min] 18 br/min (04/01/22 12:42 PM) 18 br/min (04/01/22 12:42 PM) 18 br/min (04/01/22 8:45 AM) Temperature [96.8-100.4 DegF] 97.7 DegF (04/01/22 8:45 AM) 98.2 DegF (04/01/22 12:21 AM) 97.9 DegF (03/31/22 4:15 PM) Mode of Delivery (Oxygen) Room air (04/01/22 8:45 AM) Room air (04/01/22 12:21 AM) Room air (03/31/22 4:15 PM) Blood pressure sites Arm, right (04/01/22 8:45 AM) Arm, right (04/01/22 12:21 AM) Arm, right (03/31/22 4:15 PM) Temperature Route Oral (04/01/22 8:45 AM) Oral (04/01/22 12:21 AM) Oral (03/31/22 4:15 PM) Dry Weight 108 kg (03/29/22 4:44 PM) Weight Obtained Via Standing scale (03/29/22 1:03 PM) Social History Social History Type Response Smoking Status Former smoker, quit more than 30 days ago entered on: 08/16/21 Sex History and physical note * Jaclyn Vallejo CNM: PERFORM Event Display: History and Physical Hospital Authored Date: [id number] Patient: ??ROX WALTER ? Age:??26 Years?Sex:??Female?:??1995?? OB Reason for Admission OB Reason for Admission Reason for admission: Induction of labor Reason for Induction: Other: post-term with ? vertigo, dehydration. Cat 2 tracing LMP/EGA/ALLI Gestational Age (EGA) and ALLI? * Note: EGA calculated as of 03/29/2022 ?? ALLI:??03/25/2022?EGA*:??40 weeks 4 days ? History?(0,0,1,0)?Method:??Last Menstrual Period??(06/18/2021) History of Present Illness Presents c/o nausea and vomiting, head spinning dizzy for the past few days. [facility] within the last [facility] days with multiple complaints. Moderate ketones in [facility], + GERD (has not had much to eat today). No reg uc's/LOF/VB. Baby active. Anxious to deliver, IOL on 04/01. Last VE 04/10/-2?on 03/17. ?? Review of Systems ?Review of Systems negative except as per HPI. ? Physical Exam Vitals & Measurements T:??97.9?F ?? UT:??102?? RR:??17?? BP:??114/73?? SpO2:??99%?? WT:??108.0??kg?? Constitutional?? Appearance: Normal affect.? Heart Normal. RRR. Lungs Normal. CTA Lymphatic?? Lymphatic: Normal exam. ? Skin?? Skin: Normal exam. ? Neurological/Psychiatric?? Orientation: Time, Place, Person. ? Affect: Normal. ? No headaches, no visual disturbances Abdomen/GI?? gravid, term? cephalic by VE Obese. ? Not Tender. ? No Masses. ? Gynecologic?? External Genitalia: no lesions Urethral meatus: Normal exam. ? Urethra: normal to palpation.? Vagina: Normal exam, normal support, no lesions, no discharge.? Extremities no edema, neg judi's OB Assessment Baby A Baseline:130 Baseline Description:Normal, 110-160 bpm Baseline Variability:Moderate variability Accelerations:Present 2 or more Deceleration:None Activity:Present Uterine Monitor Mode, UterinePalpation, External Assessment/Plan 26 yo at 40.4 wk with Cat 2 tracing (difficulty determine baseline at time, + variables noted) GBS neg Nausea and vomiting in , moderate ketones Dizzy/lightheaded, CBC/T&S pending. Last Hb 12.[address] Snyder/OB Team will admit for IOL, IV D5LR infusing, po challenged with sandwich after Zofran given, refer to MD management for IOL plan of care. Dr. Lovelace PGY1 aware. Problem List: ?? Anxiety and depression (F41.9):? continue weekly therapy ( ) consider 2wk PPV tele with BHN ?? Chronic constipation (K59.09):? - Senna 2 tabs at bedtime PRN - Miralax??PRN -- Resolving ?? History of migraine (Z86.69):? Prior to . Counseled on pre-e precautions, unresolving headache, different in character than usual, etc. - Tylenol PRN; occasional Excedrin ok ?? Obesity during (O99.210):? - pt lost 70 lbs with herbalife - BMI 36 at NOB - s/p??nutrition consult - 08/26 early gtt 92 (x) weekly BPP at 36wks - ordered and scheduled Growth US on 03/02 (36 weeks) was 24th %ile ?? (Z34.90):? (x) pap 03/09/21 NILM, neg hpv (x) gc/ct/trich screen 07/16 wnl (x) FTS 09/13 wnl AFP declined declines flu vaccine (-) covid vaccine declined, call if positive for oral rx (x) anatomy US 11/10: anterior placenta, cervix 3.8cm, unremarkable anatomy male fetus, plans circ tdap 12/27/21 28 week labs with elev trutol, 3 hr WNL GBS??not detected feeding method: plans breast. s/p bosom buddies class. vital milk script sent 01/05, received pump PP BC: plans condoms AJ??1 weeks ?? Rh negative status during in first trimester (O26.891):? (x) antibody screen 28 wks - negative s/p rhogam 12/27/21 ( ) PP Rhogam if candidate OB History History?(0,0,1,0)? # 1 ?Baby 1 ?Outcome Date:??11/28/2018?Outcome or Result:??Spontaneous ?Gest Age:??Unknown ? Outcome:? Sex:??-- Labs Labs Labs & Tests Antibody Screen: Negative (12/27/21) Chlamydia Trachomatis Amplified Probe: NEGATIVE (07/27/21) Creatinine-Blood: 0.5 mg/dL (01/12/22) Down Syndrome Age Risk FTS: Age Risk: (09/13/21) Down Syndrome Scrn Risk FTS: Screening Risk: (09/13/21) Glucose 3hr Gest Nerissa, +120 minutes: 92 mg/dL (01/04/22) Glucose 3hr Gest Nerissa, +180 minutes: 105 mg/dL (01/04/22) Glucose 3hr Gest Nerissa, +60 minutes: 164 mg/dL (01/04/22) Glucose 50 Gm, +60 Minutes:??142 mg/dL??High (12/27/21) Glucose Tolerance, Fastin mg/dL (01/04/22) Hct: 38.7 % (03/28/22) Hemoglobinopathy Interpretation: Normal hemoglobins. (08/26/21) Hepatitis B Surface Antigen: NEGATIVE (08/26/21) Hepatitis C Ab: NEGATIVE (08/26/21) Hgb: 12.1 Gm/dL (03/28/22) HIV 4th Generation Ab-Ag Result: NEGATIVE (08/26/21) RPR Titer Result: NOT INDICATED (12/27/21) Rubella IgG Ab: POSITIVE (08/26/21) Syphilis Screen by JERI: NEGATIVE (12/27/21) Trisomy 18 Scrn Risk FTS: Screening Risk: (09/13/21) Urine Culture: Urine Culture (10/08/21) Varicella IgG Ab: POSITIVE (08/26/21) Problem List Active Active Problem List Anxiety and depression: (Medical) Managed by PCP/has weekly therapy session/not currently on medications. Pt reports will call PCP to discuss subsitute Rx for lexapro - as she would like to continue to take medication during . Chronic constipation: (Medical) : (Obstetric) (06/18/21) Rh negative status during in first trimester: (Medical) Severe obesity: (Medical) Procedure/Surgical History R Ovarian Cystectomy: 11/23/19 Esophagogastroduodenoscopy (EGD) with biopsies: 02/15/09 [place] Teeth Extractions Home Medications Famotidine: See Instructions, TAKE 1 TABLET BY MOUTH EVERYDAY AT BEDTIME Multivitamin, : 1 tablet, Chew, Daily Polyethylene Glycol 3350: 17 Gm, By Mouth, Daily, PRN (Constipation), dissolve in water before taking Allergies CeleXA??(Rash) Social History Alcohol Use: Past. 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 Grandmother: Cancer of breast; Pancreatic cancer Aunt: Hyperthyroidism Plan OB Plan Circumcision Plan: Before discharge (03/29/22) Infant Feeding Plan: Breast milk (03/29/22) Labor Coping Mechanisms: Epidural (03/29/22) Patient Requests: It's a boy!! (03/29/22) EKG study * Event Display: ECG 12-Lead Authored Date: Please click on pdf link to open report * Event Display: ECG 12-Lead Authored Date: Ventricular Rate: 62 BPM Atrial Rate: 62 BPM P-R Interval: 178 ms QRS Duration: 96 ms Q-T Interval: 436 ms QTC Calculation(Bazett): 442 ms P Austin: 30 degrees R Austin: -12 degrees T Austin: 0 degrees Normal sinus rhythm Normal ECG When compared with ECG of 10-AUG-2021 23:08, No significant change was found Confirmed by SARITHA AKBAR ([id number]) on 03/30/2022 9:06:14 AM [place]: SARITHA AKBAR [facility] Progress note * Jennifer Zuniga RN: PERFORM, SIGN, VERIFY Event Display: Progress Note Hospital Authored Date: Patient: ROX WALTER Age: 26 years Sex: Female : 1995 Associated Diagnoses: None Author: Jennifer Zuniga RN OB stable upon discharge. Incision WNL, no signs or symptoms of infection. Educated on warning signs, care, care, and need for follow-up appointments for both patient and . Patient verbalized understanding of discharge instructions. Patient discharged home with s ignificant other. Patient placed in car seat prior to leaving. Findings Problem Related to Alteration in Comfort : Alteration in Comfort/new 04/01/2022 7:00 EST Alteration in Comfort Related to Surgery, Other: c/s Goals & Outcomes: Comfort Pt will report acceptable level of comfort & pain control Interventions Implemented: Comfort Assess pain using appropriate pain scale/tools, Assess aggravating factors & prevent them accordingly, Assess alleviating factors & promote them accordingly BH Goals/Interventions, Comfort Yes Comfort, Problem Start 03/30/2022 15:35 Reviewed plan with, Comfort Patient Patient Progression, Comfort Pt progressing according to plan Comfort, Problem Ongoing Yes . * Barbara Mckeon RN: PERFORM, SIGN, VERIFY Event Display: Progress Note Hospital Authored Date: [id number] Patient: ROX WALTER Age: 26 years Sex: Female : 1995 Associated Diagnoses: None Author: Barbara Mckeon RN Findings Problem Related to Alteration in Comfort : Alteration in Comfort/new 03/31/2022 20:00 EST Alteration in Comfort Related to Surgery, Other: c/s Goals & Outcomes: Comfort Pt will report acceptable level of comfort & pain control Interventions Implemented: Comfort Assess pain using appropriate pain scale/tools, Assess aggravating factors & prevent them accordingly, Assess alleviating factors & promote them accordingly Goals/Interventions, Comfort Yes Comfort, Problem Start 03/30/2022 15:35 Reviewed plan with, Comfort Patient Patient Progression, Comfort Pt progressing according to plan Comfort, Problem Ongoing Yes . Pt resting at this time comfortably throughout the night, A/Ox3, lungs clear, +BS abd soft, tender non-distended. Passing flatus. Fundus firm, mild vaginal flow noted with no clots. Pt voiding without difficulty. OOB ad rolo and tolerating activity well. Pt complaining of rt sided ear pain and dizziness when moving MD aware. Pain under control with pain medication given. Pt bonding well with infant. Pt has supplies needed for self care. Will continue with current nursing plan of care. * Shira Posadas RN: PERFORM, SIGN, VERIFY Event Display: Progress Note Hospital Authored Date: [id number] Patient: ROX WALTER Age: 26 years Sex: Female : 1995 Associated Diagnoses: None Author: Shira Posadas RN pt. bonding and breast feeding infant well , voiding freely , + flatus , still with dizziness , instructed to call if need assistance, will continue to monitor. Findings Problem Related to Alteration in Comfort : Alteration in Comfort/new 03/30/2022 20:00 EST Alteration in Comfort Related to Surgery, Other: c/s Goals & Outcomes: Comfort Pt will report acceptable level of comfort & pain control Interventions Implemented: Comfort Assess pain using appropriate pain scale/tools, Assess aggravating factors & prevent them accordingly, Assess alleviating factors & promote them accordingly Goals/Interventions, Comfort Yes Comfort, Problem Start 03/30/2022 15:35 Reviewed plan with, Comfort Patient Patient Progression, Comfort Pt progressing according to plan Comfort, Problem Ongoing Yes . Note * Jnenifer Zuniga RN: PERFORM Event Display: Discharge/Transfer Note Hospital Authored Date: Nursing Discharge Note Entered On: 04/01/2022 16:12 EST Performed On: 04/01/2022 16:11 EST by Jennifer Zuniga RN Nursing Discharge Note 2 Discharge Time : 04/01/2022 16:10 EST Discharge Level of Care at Discharge : Home/Senior Living/Foster Care Patient Left Unit Via : Wheelchair Patient Accompanied Off Unit with : Significant other, Other: Family DC Instructions Provided & Signed by Pt : Yes Patient Understands D/C Instructions : Yes Patient Instructions Discharge Signed : Yes Did Pt have Specialty Bed or Wound Vac : No Jennifer Zuniga RN - 04/01/2022 16:11 EST * Odalys Horowitz MD: PERFORM Event Display: Discharge/Transfer Note Hospital Authored Date: [id number] Patient: ??SABA, ROX ? Age:??26 Years?Sex:??Female?:??1995?? Admit Date Admission Date: 03/29/2022 Discharge Date 04/01/22 OB Reason for Admission OB Reason for Admission Reason for admission: Induction of labor Reason for Induction: Other: post-term with ? vertigo, dehydration. Cat 2 tracing [facility] Course 26 yo at 40+5 here for IOL due to Cat II tracing. IOL started with pitocin.??Underwent uncomplicated elective primary . Patient feeling dizzy , which was common for her for the week prior to delivery, suspected due to BPPV.??Remaining of course uncomplicated. She was safely discharged on POD2. Objective/Physical Exam on Day of Discharge Vitals & Measurements T:??98.2?F ?? HR:??76(Monitored)?? UT:??78?? RR:??19?? BP:??109/63?? SpO2:??100%?? HT:??164??cm?? WT:??3.242??kg?? BMI:??40.15?? Constitutional:??No acute distress, resting comfortably. Respiratory:??Normal work of breathing. Lungs clear to auscultation bilaterally. Cardiovascular:??Regular rate and rhythm, no murmurs.? Abdomen/GI:??Soft, mildly distended, no guarding, no rebound tenderness.??Fundus firm at umbilicus with mild tenderness. Low transverse incision covered with steri strips, appears clean, dry and in tact. Gynecologic:??Minimal lochia. Extremities:??No calf tenderness or edema. Skin:??No rash or jaundice. Neurological/Psychiatric:??Mood and affect congruent and stable. Assessment/Plan/Discharge Diagnosis Assessment:??26yo G2 now P1 on POD2 s/p primary CS. She is doing well today and would like to go home. She is passing gas, ambulating, tolerating regular diet, and voiding. Patient is concerned aboutdizziness, which has been an ongoing issue suspected due to BPPV. Audrey maneuver performed, no significant change in dizziness. CBC previously obtained that showed stable??Hgb, not concerning for dizziness secondary to anemia. ?? BPPV (benign paroxysmal positional vertigo) (H81.10):? Patient taught Audrey maneuvers to perform on her own Consider Neuro or ENT referral if continued symptoms in 1-2 weeks ?? care following delivery (Z39.2):? Continue routine & postoperative care Pain Management: continue Ibuprofen & Tylenol, oxy as needed (x) Rx on discharge Incision: appears well healing Infant feeding:?? Dailey: removed, voiding spontaneously VTE prophylaxis: SCDs while in bed, encourage ambulation Contraception: none, declines ?? Rh negative, maternal (O26.899):? s/p Rhogam ?? Care: ??Routine Postop/ care Future Appointments Sunday 3:00 PM EST ?? With: Daniela Ramirez CNM Where: [facility] [employer] Libr[employer] [address] [place] [address]- Delivery Summary Delivery Summary Maternal Information ??Labor Information ?Baby A ?Labor Onset Methods: ??Induced ?Induction Methods: ??Pitocin ??Delivery Information ?Gestational Age at Delivery: ??40W 5D ?Anesthesia OB: ??Epidural ??03/29/22 21:55:42 ?Blood Loss - Quantitative: ??425 mL ? Baby A ??Delivery Information ?Delivery Type: ??, low transverse ?Reason for : ??Elective primary ? Priority: ??Non scheduled ?Decision for : ??03/30/22 05:17:00 ?Incision Time for : ??03/30/22 05:50:00 ?Decision to Incision time: ??33 min ?Date, Time of : ??03/30/22 05:55:00 ? Position: ??Supine ?Delayed Cord Clamping: ??Yes ?Placenta Delivery Date/Time: ??03/30/22 05:56:00 ?Placenta Delivery Method: ??Assisted ?Placenta Appearance: ??Normal ?Placenta to Pathology: ??No ??Labor Information ?ROM Date, Time: ??03/29/22 22:48:00 ? monitoring: ??External monitor ?? Information ? Outcome: ??Live ? Position: ??Left occiput posterior ? Weight: ??3.242 kg ? Score 1 minute: ??8 ? Score 5 minute: ??9 ? Score 10 minute: ??9 ?Transferred To: ?? Care area with Family ?Umbilical Cord Description: ??3 vessel cord ? Complications: ??None ?Gender: ??Male ? Procedures Performed Section Primary ? Discharge Medications ???Acetaminophen (acetaminophen 325 mg oral tablet)???Docusate (docusate sodium 100 mg oral capsule)???Famotidine (famotidine 20 mg oral tablet)???Ibuprofen (ibuprofen 800 mg oral tablet)???Multivitamin, (multivitamin, Multivitamins oral tablet, chewable)???Oxycodone (oxyCODONE 5 mg oral tablet)???Polyethylene Glycol 3350 (MiraLax oral powder for reconstitution) Immunizations during Hospitalization Vaccine Date Statustetanus/diphtheria/pertussis, acel(Tdap) 12/27/2021 Given Contraception None ? Infant Feeding Method Feeding Method: (03/30/22 06:43:00) Patient Education Titles Pain After Childbirth?? Benign Paroxysmal Positional Vertigo?? Discharge Instructions for Section ()?? After a ?? Patient Instructions Discharge to??home. ?? Call the office with any concerns, including:?? Heavy vaginal bleeding?? Fever of 100.4 or greater Foul-smelling vaginal discharge Difficulty or burning with urination?? Nausea and vomiting, or inability to tolerate food Pain not controlled by your prescribed medications Shortness of breath or chest pain Swelling of the extremities. ?? General Instructions: - Avoid lifting anything 15 lbs or greater until cleared by doctor. - Stairs are OK but go slowly. - Walk as often as you are able. - Continue your stool softeners (examples: colace/docusate, senna, miralax) - Shower as usual. Avoid tubs/ soaking/ pools. * Aba JOHNSTON, Fabrice Caceres: PERFORM Event Display: Discharge/Transfer Note Hospital Authored Date: OB attending post-/post-op day??2 progress note: I have seen and evaluated this patient. ?? I have discussed the case and its management with the resident team and agree with the findings andplan as documented in the resident???s note. ?? PROBLEM LIST: Anxiety and depression Chronic constipation Rh negative status during in first trimester Severe obesity ?? SUBJECTIVE: Tolerating PO.?? Ambulating.?? Lochia < menses. Pain adequately controlled No nausea or vomiting.?? Voiding without difficulty ?? She requests discharge home today ?? Both breast and bottle-feeding currently, waiting for adequate supply of breast milk to come in, then plans to exclusively breastfeed ?? control plan is: Condoms.?She was counseled that??there is a high rate of failure with??condoms, although they are certainly better than no contraception at all.?? When condoms are used for contraception, they must be used properly with every sexual encounter. She??was encouraged to conside r??another method??to be used in addition to the condoms to prevent . ?? Baby boy - circumcision is NOT planned - per patient the baby has to have surgery in about a year so they were told not to get the circumcision done. ? OBJECTIVE: Rh negative, status post RhoGAM after delivery ?? Rubella immune ? General impression: No acute distress ? Post-operative day # 2 from a primary?? section. Doing well.? Continue current care.? Meeting all necessary discharge milestones. Plan for discharge home today. Discharge instructions and return precautions discussed. ?? [x] Discharge prescriptions written [x] Discharge medication reconciliation done [x] Discharge order entered * Jennifer Zuniga RN: PERFORM Event Display: Patient Education/Instruction Authored Date: [id number] Inpatient Adult Discharge Instructions [address] [address] Name: ROX WALTER : 1995 Visit: 03/29/2022 15:28:00 Current Date: 04/01/2022 15:01 Account: [id number] Inpatient Adult Discharge Instructions We would like [...] and their families. Surveys are administered by [employer] ?? If further treatment with your primary care physician or another doctor is recommended, it is important for you to keep the appointment. Call your primary care physician or return to the Emergency Department immediately if your condition worsens, fails to improve, or new symptoms develop. If you need to find a doctor, you can call [facility] for a referral at [phone] or toll free at [phone]) or log in to [email or web address].. ?? You can view and manage your care through the patient portal or by using a health care sourav of your choosing. [employer] is a website that allows you to securely view your medical information including your hospital discharge summary, office visit summaries, medications and follow-up visits. You can also request appointments, renew medications, and request access to your medical information using a health care sourav of your choosing, or just ask a question. You can enroll at [email or web address] or register during your next office visit. You have been discharged from [facility], Patient Care Unit: WIN2. If you have any questions regarding these instructions after you leave, please call us and we will be happy to assist you. [facility] Your Care Team Attending Physician Mason JOHNSTON, Sher Discharging Providers Aba JOHNSTON, Fabrice Caceres Reason for Admission Induction of labor Your Diagnosis Post term over 40 weeks Rh negative, maternal Encounter for induction of labor care following delivery BPPV (benign paroxysmal positional vertigo) Tests Performed Below is a partial list of the tests performed during your hospitalization. You may have had other tests and procedures not included in this list. Please discuss all test results with your provider. CBC Cord Blood Gas?-- Results Pending -- COVID-19 (2019 Novel Coronavirus) PCR?-- Results Pending -- Electrolytes HOLD GEL TUBE Type and Screen ? You will be contacted within 72 hours with your results. Advance Directive Health Care Proxy on File No No qualifying data available. Discharge Vitals Temperature: 97.7 DegF Height: 164 cm Pulse Rate: 74 bpm Weight: 108 kg Respiratory Rate: 18 br/min Body Mass Index:??40.15 kg/m2??Critical Respiratory Rate: 18 br/min Body surface area: 2.22 Systolic Blood Pressure: 112 mm Hg ?? Diastolic Blood Pressure: 61 mm Hg ?? Oxygen Saturation: 98 % ?? Studies Pending All tests and labs ordered during this hospital stay have been completed unless listed below. Please discuss all pending results with your provider listed above in these instructions. ?? COVID-19 (2019 Novel Coronavirus) PCR Cord Blood Gas Hold Lavender Tube (BB) (Hold Lavender Tube (BB), ) Rh-Immune Globulin What to do next Instructions From Your Doctor Discharge to??home. ?? Call the office with any concerns, including:?? Heavy vaginal bleeding?? Fever of 100.4 or greater Foul-smelling vaginal discharge Difficulty or burning with urination?? Nausea and vomiting, or inability to tolerate food Pain not controlled by your prescribed medications Shortness of breath or chest pain Swelling of the extremities. ?? General Instructions: - Avoid lifting anything 15 lbs or greater until cleared by doctor. - Stairs are OK but go slowly. - Walk as often as you are able. - Continue your stool softeners (examples: colace/docusate, senna, miralax) - Shower as usual. Avoid tubs/ soaking/ pools. Discharge Orders Scheduled Follow-Up Appointments Sunday 3:00 PM EST ?? 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 Medications not listed below should be discontinued. Discuss any questions related to medications with your provider. What How Much When Instructions Next Dose New Acetaminophen (acetaminophen 325 mg oral tablet) 650 Milligram Oral Every 4 hours (1-3), may give 325mg per patient preference and re-dose with 325mg within 4 hours, if needed. ?? Patient should only receive a total of 650mg of Acetaminophen every 4 hours. ?? Pickup at [facility]/pharmacy #[id number] May take after 7:30pm New Docusate (docusate sodium 100 mg oral capsule) 1 capsule Oral Twice a day Pickup at [facility]/pharmacy #[id number] 04/01 PM New Ibuprofen (ibuprofen 800 mg oral tablet) 1 tab(s) Oral Every 8 hours (4-6), may give 400mg per patient preference and re-dose with 400mg within 8 hours, if needed. ?? Patient should only receive a total of 800mg of Ibuprofen every 8 hours. ?? Pickup at [facility]/pharmacy #[id number] May take after 9:30pm New Oxycodone (oxyCODONE 5 mg oral tablet) 1 tab(s) Oral Every 3 hours as needed for Pain , Severe (7-10) ?? Pickup at [facility]/pharmacy #[id number] May take as needed Unchanged Famotidine (famotidine 20 mg oral tablet) See instructions TAKE 1 TABLET BY MOUTH EVERYDAY AT BEDTIME ?? 04/02 AM Unchanged Multivitamin, (multivitamin, Multivitamins oral tablet, chewable) 1 tab(s) Chew Daily 04/02 AM Unchanged Polyethylene Glycol 3350 (MiraLax oral powder for reconstitution) 17 gram Oral Daily as needed for Constipation dissolve in water before taking ?? 04/02 AM Pharmacy Information [facility]/pharmacy #[id number]: [address] [place] [phone] Test Results Below is a partial list of the most recent Laboratory test results done prior to this discharge. You may have had other tests and procedures not included in this list. Please discuss all test resultswith your provider. Bleed Screening - Negative (03/30/2022) RHIG Available - PT (03/30/2022) RHIG Candidacy Screen - Patient is a candidate for RhIG. Place order (03/30/2022) RHIG LOT # - [id number] (03/30/2022) CBC (03/31/2022) ???WBC - 15.1 k/mm3???RBC - 3.75 m/mm3???Hgb - 11.0 Gm/dL???Hct - 33.5 %???MCV - 89.3 femtoliters???MCH - 29.3 pg???MCHC - 32.8 g/dL???Platelet Count - 274 k/mm3???RDW-SD - 43.5 femtoliters???MPV - 9.9 femtoliters???Nucleated RBC (Automated) - 0.0 #/100 WBC'S???Abs. NRBC - 0.0 k/mm3 Electrolytes (03/31/2022) ???Sodium - 141 mmol/L???Potassium - 4.0 mmol/L???Chloride - 106 mmol/L???Bicarbonate Level - 24 mmol/L???Anion Gap - 11 HOLD GEL TUBE (03/31/2022) ???Hold Gel Top - SPECIMEN DISCARDED AFTER 1 WEEK Type and Screen (03/29/2022) ???Blood Type - A Negative???Antibody Screen - Negative Allergies (NKA means No Known Allergies) CeleXA??(Rash) Problems Active Problems??(5) Anxiety and depression?? Chronic constipation? Rh negative status during in first trimester?? Severe obesity?? Education Materials Below is the list of Educational Leaflet Providered with your Discharge Instructions. Pain After Childbirth?? Benign Paroxysmal Positional Vertigo?? Discharge Instructions for Section ()?? After a ?? Valuables and Belongings I fully understand and agree that [facility] accepts no responsibility for all my personal [...] encouraged to send valuables and belongings home. ?? Review of Valuable and Belonging List: With patient Date for Pt to Sign Valuables/Belongings: 03/29/22 16:58:00 ?? Other Discharge Information ? Pulmonary Rehab Status?? [...] are strongly encouraged to quit. Please call [facility] [employer] at [phone] or [phone] ([phone]) or log in to [email or web address] for referrals to smoking cessation programs. ?? The National Suicide Prevention Hotline is available 02/10 if you or someone you know needs to find a reason to keep living. By calling 7-946-678-YourEncore (0772) you'll be connected to a skilled, trained counselor at a crisis center in your area. INPATIENT DISCHARGE INSTRUCTIONS SIGNATURE PAGE SABAROX KENNEY Location:[facility] Registration Date and Time:03/29/2022 15:28 EST Primary Care Physician: Sara JOHNSTON , [facility], I ROX WALTER, have received the above patient education materials/instructions and have verbalized understanding. If ambulance or transport services are being used I further acknowledge being given a choice of service. ?? If you need to contact me, please call me at this number: . 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 [id number] Benign Paroxysmal Positional Vertigo Benign paroxysmal positional vertigo (BPPV) is a problem with the inner ear. The inner ear containsthe vestibular system. This system is what helps you keep your balance. BPPV causes a feeling of spinning. It'gs a common problem of the vestibular system. Understanding the vestibular system The vestibular system of the ear is made up of very tiny parts. They include the utricle, saccule, and semicircular canals. The utricle is a tiny organ that contains calcium crystals. In some people,the crystals can move into the semicircular canals. When this happens, the system no longer works as it should. This causes BPPV. Benign means it's not life threatening. Paroxysmal means it comes in sudden brief spells. Positional means that it is triggered by certain head movements or positions. Vertigo is a feeling of spinning. ?? What causes BPPV? Causes include injury to your head or neck. Other problems with the vestibular system may cause BPPV. In many people, the cause of BPPV is not known. ?? Symptoms of BPPV You may have repeated feelings of spinning (vertigo). The vertigo usually lasts less than 1 minute.Some movements, such as rolling over in bed, can bring on vertigo. ?? Diagnosing BPPV Your primary healthcare provider may diagnose and treat your BPPV. In some cases, you may be referred to an ear, nose, and throat specialist (senior asp net developer) or a nervous page makeup system operator (neurologist). The healthcare provider will ask about your symptoms and your medical history. You will be examinedand have hearing and balance tests performed. As part of the exam, your healthcare provider may have you move your head and body in certain ways. If you have BPPV, certain types of movements can bring on vertigo. Your provider will also look for abnormal movements of your eyes. You may have other tests to check your vestibular or nervous system. ?? Treatment for BPPV By using certain maneuvers your healthcare provider will try to guide the calcium crystals back to the chambers where they should be. This is done by having you move your head and neck in certain ways. This treatment is safe and often works well. You may also be told to do these movements at home. You may still have vertigo for a few weeks. Your healthcare provider will recheck your symptoms, usually in about a month. Special physical therapy may also be part of treatment. In rare cases, surgery may be needed for BPPV that does not go away. Talk with your healthcare provider about whether it's safe for you to drive. Your health care provider may move your head in certain ways to treat your BPPV. ?? When to call the healthcare provider Call your healthcare provider right away if you have any of these: ??? Symptoms that don't go away with treatment ??? Symptoms that get worse ??? New symptoms ?? Last Reviewed Date: 2021 ?? 2818-0195 [employer]. All rights reserved. This information is not intended as a substitute for professional medical care. Always follow your healthcare professional's instructions. ?? * Odalys Horowitz MD: PERFORM Event Display: Patient Education Leaflets Authored Date: [id number] Multiple Documents ?? [id number] Pain After Childbirth After giving , your body needs time to recover. You may have different kinds of pain in your body that need extra care. Your breasts may hurt, and your uterus may cramp. If you had a , your belly (abdomen) will be sore. The area between your vagina and anus (perineum) may hurt. Understanding how to manage pain after childbirth will help you care for your baby and yourself during this time. Breast pain You may have swollen breasts and sore nipples for a time after childbirth. You can help ease swelling by often and putting cool packs on your breasts. You may have nipple pain from . Dabbing a small amount of breastmilk on the nipple or using a breast shield can help withthis problem. Cream or ointment on the nipples doesn???t always help. But if you use any kind of cream or ointment on your nipples, make sure to wipe it off before . Your healthcare provider may also advise a medicine, such as ibuprofen. If you???re having ongoing nipple pain, talk with your healthcare team. They can help you tell if your baby is latching on normally, and if your breast pump fits your breasts well. ?? Uterus pain Cramping pain in your uterus after childbirth is also known as afterpains. It???s more common in people who have given before. It often happens during in the first few days after . A heating pad on your belly may help ease pain. Taking ibuprofen or naproxen can also help reduce pain. ?? Perineal pain The perineum is the area between the vagina and the anus. It can be bruised and sore after childbirth. You may have a tear or cut in the area. You may have pain for days or weeks. Putting an ice packor cold pack on the area in the first 1 to 3 days may help reduce swelling. Do this for 10 to 20 minutes several times a day. Or sit in a shallow bath of cold or iced water several times a day. Pain m edicine, such as ibuprofen or acetaminophen, can help manage this pain. If you have stitches in thearea, gently rinse them with warm water each time you use the toilet. Don't wipe the stitches with toilet paper. If you have constipation, it can make perineal pain worse. Talk with your healthcare team if you need laxatives to help keep your stool soft. ?? Hemorrhoids These are enlarged veins in the rectum and anus. They can itch and hurt. They can happen from the pushing during the second stage of labor. You can treat these with hemorrhoid medicines, such as cream, ointment, or astringent wipes that have witch sandrine. ?? Types of medicines Pain medicine you may be given after childbirth include: ??? A nonsteroidal anti-inflammatory drug (NSAID) such as ibuprofen, naproxen, or ketorolac ??? Aspirin ??? Acetaminophen ??? Dexamethasone (a steroid) If your pain is not helped by these medicines, your healthcare provider may advise stronger ones called opioids. Opioid medicine may be given through an IV, injection, or by mouth. Tell your healthcare team if you have had any problems with opioid medicines in the past, such as opioid use disorder.Opioid medicines can also make you sleepy. This can make it harder to care for yourself and your baby. The medicines can also cause constipation. This can make perineal pain worse. And it can affect your baby if you are . Talk with your team about the risks and benefits if you need opioids. Taking medicines while Some medicines are not advised to take if you are . The effects of opioid medicines onyour baby vary by dose. Talk with your healthcare team about the risks and benefits of any medicineyou may take. After you leave the hospital or birthing center, you may have pain medicines to take at home. Your healthcare team will talk with you about the safest doses and timing of medicine if you???re . They will also tell you how to watch your baby for signs of opioid effects. ?? When to call your healthcare provider Call your healthcare provider if any of these occur: ??? Fever of 100.4??F (38??C) or higher, or asadvised by your provider ??? Redness, swelling, or fluid leaking from your incision that gets worse??? Pain that gets worse ??? Symptoms that don???t get better, or get worse ??? Severe headache ???Other new symptoms ?? Last Reviewed Date: 2022 ?? [employer]. All rights reserved. This information is not intended as a substitute for professional medical care. Always follow your healthcare professional's instructions. ?? * Odalys Horowitz MD: PERFORM Event Display: Patient Education Leaflets Authored Date: [id number] Multiple Documents ?? [id number] Discharge Instructions for Section () You had a section, also called a . During the , your baby was delivered through an incision in your stomach and uterus. Full recovery after a can take time. It???s important to take care of yourself ??? for your own sake and because your new baby needs you. Hereare some guidelines to follow at home. Incision care Here's how to take care of your incision: ??? Shower as needed. Pat your incision dry. ??? Watch your incision for signs of infection, such as??more redness or drainage. ??? Hold a pillow against theincision when you laugh or cough and when you get up from a lying or sitting position. ??? Remember, it can take as long as?? 6??weeks for??your incision to heal. ?? Activity Here are some suggestions: ??? Don???t try to take care of anyone other than your baby and yourself. ??? Remember, the more active you are, the more likely you are to have an increase in your bleeding. ??? Get lots of rest. Take naps in the afternoon. ??? Increase your activities bit by bit. ??? Plan your activities so that you don???t have to go up or down stairs more than needed. ??? Do postsurgical deep breathing and coughing exercises. Ask your??healthcare provider for instructions. ??? Don???t lift anything heavier than your baby until your??healthcare provider tells you it???s OK. ??? Don???t drive until your??healthcare provider says it???s OK. ??? Don???t have sex until after you???ve had a checkup with your??healthcare provider and??you have decided on a control method. ???Let others do things for??you. Don't hesitate to ask for help. ?? Follow-up Make a follow-up appointment as directed by our staff. ?? When to call your healthcare provider Call your healthcare provider right away if you have any of these: ??? Fever of?? 100.4?? F??( 38??C) or higher ??? Redness, pain, or drainage at your incision site ??? Bleeding that requires a new sanitary pad every hour. Heavy vaginal bleeding may be a sign of hemorrhage. It needs medical care right away. ??? Severe belly pain ??? Pain or urgency with urination ??? Foul odor from vaginal discharge ??? Trouble urinating or emptying your bladder ??? No bowel movement within 1 week after the of your baby ??? Swollen, red, painful area in the leg ??? Appearance of rash or hives??? Sore, red, painful area on the breasts that??may come with??flu-like symptoms ??? Feelings of an xiety, panic, or depression ?? Last Reviewed Date: 2020 ?? [id number] [employer]. All rights reserved. This information is not intended as a substitute for professional medical care. Always follow your healthcare professional's instructions. ?? * Therese Gandhi: PERFORM, MODIFY Event Display: Care Team Progress Note Authored Date: [id number] Patient: ??ROX WALTER ? Age:??26 Years?Sex:??Female?:??1995?? Subjective Cart Round Visit (DAY 1) Assessment/Plan Basic education discussed with mother/family including:? Positioning infant for optimal feeding Asymmetric latch technique Frequent breast stimulation for initiation and maintenance of milk supply _Coming to full milk volume in first 14 days Hand expression When to use a breast pump Information on how to obtain a breast pump; has already Consultation reference guide given to mother with contact information for services and ongoing support as needed.?[place] Expectations ?1-2 feeds/1??void?in first 24 hours, ? 8-10 feeds/ 4 voids/2-3 stool by day 4 when milk arrives, ? Feeds are not routine but balance out over 24 hours.? Sleepy behavior during the day ? Frustrated and cluster feeding throughout the night ? Skin to Skin helps engage and stimulate our to help them identify their own hunger ?? Assisted mom to??put baby skin to skin prior to attempting at the breast. Baby very sleepy, not displaying any feeding cues. Reviewed need for stimulation and pumping if baby is not latching and set up with symphony to initiate pumping. Attempted at breast with nipple shield, baby stayed on longer but it wasn't a full feeding. Mom was to pump and dad to bottle feed. Reviewed paced bottle feeding. Reviewed personal use pump with mom at her request.? Symphony pump use demonstrated to mother/partner.?Initiation/maintenance mode explained.?Educated on: Frequency and duration of pumping Hands on pumping Adding hand expression to increase milk yield Correct flange size Cleaning of pump parts Labeling of breast milk Milk storage Transport of breast milk. Mother currently using 24mm flanges. ?? OB Summary : 2 . Baby A - Weight: 3.242 kg Baby A - Date, Time of : 03/30/22 05:55:00 Baby A - Gender: Male Baby A - Complications: None EGA at Documented Date, Time: 40W 5D Weight at Delivery Baby A - Delivery Type: , low transverse OB History History?(0,0,1,0)? # 1 ?Baby 1 ?Outcome Date:??11/28/2018?Outcome or Result:??Spontaneous ?Gest Age:??Unknown ? Outcome:? Sex:??-- Active Problem List Active Problem List Anxiety and depression: (Medical) Managed by PCP/has weekly therapy session/not currently on medications. Pt reports will call PCP to discuss subsitute Rx for lexapro - as she would like to continue to take medication during . Chronic constipation: (Medical) : (Obstetric) (06/18/21) Rh negative status during in first trimester: (Medical) Severe obesity: (Medical) Home Medications Famotidine: See Instructions, TAKE 1 TABLET BY MOUTH EVERYDAY AT BEDTIME Multivitamin, : 1 tablet, Chew, Daily Polyethylene Glycol 3350: 17 Gm, By Mouth, Daily, PRN (Constipation), dissolve in water before taking Medications Medications (15) Active SCHEDULED: (4) Acetaminophen 325 mg Tablet (Acetaminophen Tablet) ??650 mg, By Mouth, Every 4 hours Docusate Sodium 100 mg Capsule (Docusate Sodium Capsule) ??100 mg 1 capsule, By Mouth, 2 times a day Famotidine 20 mg Tablet (famotidine 20 mg oral tablet) ??20 mg, By Mouth, Daily Ibuprofen 800 mg Tablet (Ibuprofen Tablet) ??800 mg, By Mouth, Every 8 hours CONTINUOUS: (2) Lactated Ringers (1000 mL) Cont IV 1,000 mL (Lactated Ringers 1,000 mL) ??1,000 mL, Intrauterine, 125 mL/hr Lactated Ringers (1000 mL) Cont IV 1,000 mL (Lactated Ringers 1,000 mL) ??1,000 mL, IV Infusion, 125 mL/hr PRN: (9) Calcium Carbonate 500 mg (Calcium 200 mg) Chewable Tablet (Tums 500 mg Tablet) ??1,000 mg 2 tablet,Chew, 3 times a day FENTanyl 50 mcg/mL Inj (2 mL) (FENTanyl Inj) ??25 mcg 0.5 mL, IV Push, Every 5 minutes Metoclopramide 5 mg/mL Inj (2 mL) (Metoclopramide Inj) ??10 mg, IV Push, Every 6 hours nalOXONE ??400mcg/mL Inj (nalOXONE Inj) ??0.1 mg 0.25 mL, IV Push Slowly, Every 15 minutes Ondansetron 2mg/mL Inj (2mL Vial) (Ondansetron Inj) ??4 mg, IV Push, Every 8 hours Ondansetron 2mg/mL Inj (2mL Vial) (Ondansetron Inj) ??4 mg, IV Push Slowly, Once Ondansetron 4 mg ODT (Ondansetron Tablet) ??4 mg, By Mouth, Every 4 hours OxyCODONE 5 mg IR Tablet (OxyCODONE IR Tablet) ??5 mg, By Mouth, Every 3 hours Simethicone 80 mg Chewable Tablet (Simethicone Tablet) ??80 mg, Chew, 3 times a day Patient Care team information Care Team Personnel Name: Hali Moore RN Position: [facility] AMB Nurse Member Role: Primary Care Nurse Name: Jacqueline Sales RN Position: [facility] RN Member Role: Primary Care Nurse Name: Jennifer Zuniga RN Position: [facility] OB RN Member Role: Patient Care Provider Name: Iwona Voss RN Position: [facility] OB RN Member Role: Patient Care Provider Care Team Related Persons Name: NOÉ GUILLAUME Address: [address] [address] Name: HUSEYIN MERCADO Address: home [address] [place] [address] Name: SHANON IZAGUIRRE Address: home [address] Name: ROX WALTER Address: [employer] Address: home [address] [place] [address]
--- OUTSIDE RECORDS SUMMARY | 2023-01-18 06:19 | XMS_ITS | Continuity of Care Document ---
Author Name Unknown Organization [facility] Address [address] [place] [id number]- Care Team Providers Care Foamite Mixer Name Role Phone Sara JOHNSTON, Michelle Primary Care Physician [place] [facility] [place] 03/09/21 - 04/08/[address] [address]- Attending Physician: Anay Coronel Admitting Physician: Anay [...]
--- OUTSIDE RECORDS SUMMARY | 2023-01-18 06:19 | XMS_ITS | Continuity of Care Document ---
Author Name Unknown Organization [facility] Address [address] [place] [id number]- Care Team Providers Care Manager Of Drilling Name Role Phone Sara JOHNSTON, Michelle Primary Care Physician Encounter [facility] [place] Date(s): 08/27/20 - 09/26/[address] [address]- Allergies, Adverse Reactions, Alerts Substance Reaction Severity [...]
--- OUTSIDE RECORDS SUMMARY | 2023-01-18 06:19 | XMS_ITS | Continuity of Care Document ---
Author Name Unknown Organization [facility] Address [address] [place] [address]- Care Team Providers Care Manager Of Internal Name Role Phone Sara JOHNSTON, Michelle Primary Care Physician [place] [facility] [place] 12/[place]/19 [facility] [address] [address]- [facility] Allergies, Adverse Reactions, Alerts Substance [...]
--- OUTSIDE RECORDS SUMMARY | 2023-01-18 06:19 | XMS_ITS | Continuity of Care Document ---
Author Name Unknown Organization [facility] Address [address] [place] [address]- Care Team Providers Care Crane Mechanic Name Role Phone Michelle Ruiz MD Primary Care Physician Encounter [facility] [place] Date(s): 11/22/19 - 11/23/[address] [address]- [facility] Encounter Diagnosis Cyst, ovarian(Final) - 11/22/19 Discharge Disposition: A-D/C Home Attending Physician: Kriss Godoy MD Admitting Physician: Kriss Godoy MD Referring Physician: Not on Staff, Referring [...] 11/23/19 2:29:00 EDT, Route to [facility]acy [facility]ically, [id number], 165, cm, 08/15/19 14:03:00 EDT, [...] smoker(Confirmed) Active Obesity(Confirmed) Active Infertility management(Confirmed) Active Results Orders for Microbiology Reports Name Date Wet Prep 11/22/19 Microbiology Reports TEST:Wet Prep STATUS:Auth (Verified) BODY SITE: SOURCE:VAGINA COLLECTED DATE/TIME:11/22/19 8:40 AM Wet Prep SPECIMEN DESCRIPTION : VAGINAL SPECIMEN SPECIAL REQUESTS : NONE DIRECT EXAM : 4+ WHITE BLOOD CELLS 1+ CLUE CELLS NO TRICHOMONAS OBSERVED NO YEAST OBSERVED REPORT STATUS : FINAL 11/22/2019 Vital Signs Most recent to oldest [Reference Range]: 1 2 3 Height 165 cm (11/23/19 7:37 AM) 165 cm (11/23/19 6:15 AM) Weight 119 kg (11/23/19 6:15 AM) Oxygen Saturation [94-100 %] 96 % (11/23/19 7:37 AM) 99 % (11/23/19 4:30 AM) 97 % (11/23/19 4:15 AM) Pulse Rate [55-90 bpm] 71 bpm (11/23/19 7:37 AM) 74 bpm (11/23/19 12:01 AM) 71 bpm (11/22/19 7:35 PM) Body Mass Index [18.5-24.99] 43.71 *>HHI* (11/23/19 6:15 AM) Blood Pressure [90-138/55-84 mm Hg] 101/54mm Hg (11/23/19 7:37 AM) 112/63mm Hg (11/23/19 4:30 AM) 105/65mm Hg (11/23/19 4:15 AM) Respiratory Rate [16-30 br/min] 18 br/min (11/23/19 7:37 AM) 18 br/min (11/23/19 4:30 AM) 17 br/min (11/23/19 4:15 AM) Temperature [96.8-100.4 DegF] 97.7 DegF (11/23/19 7:37 AM) 97.7 DegF (11/23/19 4:30 AM) 97.7 DegF (11/23/19 2:30 AM) Liters per Minute 2 L/min (11/23/19 4:15 AM) 2 L/min (11/23/19 4:00 AM) 2 L/min (11/23/19 3:45 AM) Mode of Delivery (Oxygen) Room air (11/23/19 7:37 AM) Nasal cannula (11/23/19 4:00 AM) Shovel mask (11/23/19 3:15 AM) Blood pressure sites Arm, left (11/23/19 7:37 AM) Arm, right (11/23/19 2:30 AM) Arm, right (11/23/19 12:01 AM) Temperature Route Oral (11/23/19 7:37 AM) Temporal (11/23/19 2:30 AM) Temporal (11/23/19 12:01 AM) Dry Weight 119 kg (11/23/19 6:15 AM) Social History Social History Type Response Smoking Status Former smoker, quit more than 30 days ago entered on: 11/16/18 Sex
--- OUTSIDE RECORDS SUMMARY | 2023-01-18 06:19 | XMS_ITS | Continuity of Care Document ---
Author Name Unknown Organization [facility] Address [address] [place] [id number]- Care Team Providers Care Fit Model Name Role Phone Sara JOHNSTON, Michelle Primary Care Physician Encounter [facility] [place] Date(s): 03/29/22 - 04/28/[address] [address]- Allergies, Adverse Reactions, Alerts Substance Reaction Severity [...] Replace Required Details, Route to Pharmacy Electronically, [id number], 164, cm, 02/09/22 11:07:00 EST, Height,... Start [...] Maintenance, 08/13/21 12:58:00 EDT, REC Powder, [facility]/pharmacy #[id number], Partial fill upon patient requestif the prescription is for a schedule II opioid kat... Start Date: 08/13/21 Status: Ordered ondansetron 4 mg oral tablet, disintegrating = 4 mg, By Mouth, Every 6 hours, PRN Nausea & Vomiting, # 30 tablet, 1 Refills, Maintenance, 04/07/22 15:04:00 EST, Tablet, [facility]/pharmacy #[id number], Partial fill upon patient request if [...] Team Personnel Name: Hali Moore RN Position: [facility] Nurse Member Role: Primary Care Nurse Name: Jacqueline Sales RN Position: [facility] RN Member Role: Primary Care Nurse Care Team Related Persons Name: NOÉ GUILLAUME Address: [address] [place] [address] Name: ISHA MERCADO Address: [employer] Address: home [address] [place] [address] Name: HUSEYIN MERCADO Address: home [address] [place] [address] Name: SHANON IZAGUIRRE Address: home [address] [address]
--- OUTSIDE RECORDS SUMMARY | 2023-01-18 06:19 | XMS_ITS | Continuity of Care Document ---
Author Name Unknown Organization [facility] Address [address] [place] [address]- Care Team Providers Care Optometric Technician Name Role Phone Sara JOHNSTON, Michelle Primary Care Physician [place] [facility] [place] - 03/30/[address] [address]- Allergies, Adverse Reactions, Alerts Substance Reaction Severity Status Strawberries itchy throat Resolved CeleXA Rash Active Immunizations Given and Recorded Vaccine Date Status Refusal Reason tetanus/diphtheria/pertussis, acel(Tdap) 12/27/21 Given Medications famotidine 20 mg oral tablet See Instructions, TAKE 1 TABLET BY MOUTH EVERYDAY AT BEDTIME, # 30 tablet, Refills 1, Maintenance, 02/14/22 6:30:00 EST, Instructions Replace Required Details, Route to Pharmacy Electronically, [id number], 164, cm, 02/09/22 11:07:00 EST, Height,... Start [...] Refills, Maintenance, 07/21/21 11:25:00 EDT, Chew Tablet, [facility]/pharmacy #[id number], Partial fill upon [...] Team Personnel Name: Hali Moore RN Position: [facility] Nurse Member Role: Primary Care Nurse Name: Jacqueline Sales RN Position: [facility] RN Member Role: Primary Care Nurse Care Team Related Persons Name: NOÉ GUILLAUME Address: home [address] [place] [address] Name: HUSEYIN MERCADO Address: home [address] [place] [address] Name: SHANON IZAGUIRRE Address: home [address] [place] [address] Name: ROX WALTER Address: [employer] Address: home [address] [place] [address]
--- OUTSIDE RECORDS SUMMARY | 2023-01-18 06:19 | XMS_ITS | Continuity of Care Document ---
Author Name Unknown Organization [facility] Address [address] [place] [address]- Care Team Providers Care Concrete Carpenter Name Role Phone Sara JOHNSTON, [facility] Primary Care Physician [place] [facility] [place] - 12/29/[address] [address]- Attending Physician: Not on Staff, Attending MD Allergies, Adverse Reactions, Alerts Substance Reaction Severity Status Strawberries itchy throat Active CeleXA Active Medications Valerie 30 mg oral tablet 1 tablet = 30 mg, By Mouth, Once, # 1 tablet, 5 Refills, Soft Stop, 11/24/20 20:25:00 EDT, [facility]/pharmacy #[id number], Partial fill upon patient request if the [...]
--- OUTSIDE RECORDS SUMMARY | 2023-01-18 06:19 | XMS_ITS | Continuity of Care Document ---
Author Name Unknown Organization [facility] Address [address] [place] [address]- Care Team Providers Care Senior Java Developer Name Role Phone Sara JOHNSTON, Michelle Primary Care Physician Encounter [facility] [place] Date(s): 12/27/21 - 01/26/[address] [address]- Allergies, Adverse Reactions, Alerts Substance Reaction Severity Status Strawberries itchy throat Resolved CeleXA Active Immunizations Given and Recorded Vaccine Date Status Refusal Reason tetanus/diphtheria/pertussis, acel(Tdap) 12/27/21 Given Medications famotidine 20 mg oral tablet 20 mg, 1, tablet, By Mouth, Daily at bedtime, # 30 tablet, Refills 1, Tot. Refills 1, Maintenance, 10/09/21 0:42:00 EDT, Route to Pharmacy Electronically, [facility]/pharmacy #[id number], Partial fill upon [...] Refills, Maintenance, 07/21/21 11:25:00 EDT, Chew Tablet, [facility]/pharmacy #[id number], Partial fill upon [...] Team Personnel Name: Hali Moore RN Position: [facility] Nurse Member Role: Primary Care Nurse Name: Jacqueline Sales RN Position: [facility] RN Member Role: Primary Care Nurse Care Team Related Persons Name: NOÉ GUILLAUME Address: [address] [place] [address] Name: HUSEYIN MERCADO Address: home [address] [place] Name: SHANON IZAGUIRRE Address: home [address] [place] [address]
--- OUTSIDE RECORDS SUMMARY | 2023-01-18 06:19 | XMS_ITS | Continuity of Care Document ---
Author Name Unknown Organization [facility] Address [address] [place] [address]- Care Team Providers Care Stringed Instrument Assembler Name Role Phone Sara JOHNSTON, [facility] Primary Care Physician [id number] Date(s): 12/08/21 - 01/25/[address] [address]- Attending Physician: Not on Staff, Attending MD [...] 0:42:00 EDT, Route to Pharmacy Electronically, [facility]/pharmacy #[id number], Partial fill upon patient request if the prescription is for a schedule II o... Start Date: 10/09/21 Status: Ordered MiraLax oral powder for reconstitution = 17 Gm, By Mouth, Daily, PRN Constipation, dissolve in water before taking, # 255 Gm, 0 Refills, Maintenance, 08/13/21 12:58:00 EDT, REC Powder, [facility]/pharmacy #[id number], Partial fill upon patient requestif the prescription is for a schedule II opioid kat... Start Date: 08/13/21 Status: Ordered multivitamin, Multivitamins oral tablet, chewable 1 tablet, Chew, Daily, # 90 tablet, 2 Refills, Maintenance, 07/21/21 11:25:00 EDT, [facility]w Tablet, [id number], Partial fill upon patient request if the [...] Team Personnel Name: Hali Moore RN Position: [facility] Nurse Member Role: Primary Care Nurse Name: Jacqueline Sales RN Position: [facility] RN Member Role: Primary Care Nurse Care Team Related Persons Name: NOÉ GUILLAUME Address: home [address] [place] [address] Name: HUSEYIN MERCADO Address: home [address] [place] [address] Name: SHANON IZAGUIRRE Address: home [address] [place] [address]
--- OUTSIDE RECORDS SUMMARY | 2023-01-18 06:19 | XMS_ITS | Continuity of Care Document ---
Author Name Unknown Organization [facility] Address [address] [place] [address]- Care Team Providers Care Shoe Worker Name Role Phone Sara JOHNSTON, [employer] Primary Care Physician Encounter [facility] [place] Date(s): 09/08/21 - 10/08/[address] [address]- Allergies, Adverse Reactions, Alerts Substance Reaction Severity Status Strawberries itchy throat Active CeleXA Active Medications Colace sodium 100 mg oral capsule 100 mg, 1, capsule, By Mouth, Daily, PRN, for 90 days, # 90 capsule, Refills 1, Tot. Refills 1, Hard Stop 02/12/22 21:04:00 EST, for constipation, 08/16/21 21:04:00 EDT, Route to Pharmacy Electronically, [facility]/pharmacy #[id number], Partial fill upon patient r... Start Date: 08/16/21 Stop Date: 02/12/22 Status: Ordered Colace sodium 100 mg oral capsule 100 mg, 1, capsule, By Mouth, Daily, PRN, # 60 capsule, Refills 3, Tot. Refills 3, Maintenance, forconstipation, 02/12/22 21:04:00 EST, Route to Pharmacy Electronically, [facility]/pharmacy #[id number], Partial fill upon patient request if the prescription is for... Start Date: 02/12/22 Status: Ordered famotidine 20 mg oral tablet 20 mg, 1, tablet, By Mouth, Daily at bedtime, # 30 tablet, Refills 1, Tot. Refills 1, Maintenance, 10/09/21 0:42:00 EDT, Route to Pharmacy Electronically, [facility]/pharmacy #[id number], Partial fill upon patient request [...] Refills, Maintenance, 08/13/21 12:58:00 EDT, REC Powder, [facility]/pharmacy #[id number], Partial fill upon patient requestif the prescription is for a schedule II opioid kat... Start Date: 08/13/21 Status: Ordered multivitamin, Multivitamins oral tablet, chewable 1 tablet, Chew, Daily, # 90 tablet, 2 Refills, Maintenance, 07/21/21 11:25:00 EDT, Chew Tablet, [facility]/pharmacy #[id number], Partial fill upon patient request if the prescription is for a schedule II opioid drug., 1 tablet Chew Daily, 165, cm, 06/22/21 18:15:0... Start Date: 07/21/21 Status: Ordered Unisom 25 mg oral tablet 1 tablet = 25 mg, By Mouth, Daily at bedtime, # 30 tablet, 1 Refills, Acute 10/10/21 11:49:00 EDT, 08/09/21 11:49:00 EDT, [facility]/pharmacy #[id number], Partial fill upon patient request [...]
--- OUTSIDE RECORDS SUMMARY | 2023-01-18 06:20 | XMS_ITS | Patient Health Record ---
Author Name Unknown Organization [facility] Address [address] [place] [id number] Support Name Relationship Address Phone Ondina Marti Guarantor Unknown Unavailabl e REASON FOR REFERRAL No Information SOCIAL HISTORY Sex Assigned At : Social History Observation Description Sex Assigned At Unknown PLAN OF TREATMENT No Information
[2023-01-18 06:36] LABS: Influenza A PCR NEGATIVE (Negative); Influenza B PCR NEGATIVE (Negative); Resp Syncy Virus RNA Qual PCR NEGATIVE (Negative); SARS COV2 PCR INHOUSE POSITIVE (Negative)
[2023-01-18 06:50] LABS: Erythrocyte Sedimentation Rate 14 MM/HR (0-20)
== END 2023-01-18 07:22 | disposition home or self-care (01) ==
PROVIDERS: Emergency Provider Internal Medicine; PCP Internal Medicine
DX: U07.1 COVID-19 (principal); F17.210 Nicotine dependence, cigarettes, uncomplicated
CPT/HCPCS: 0241U; 36415; 80053; 85027; 85652; 96361; 96372; 96374; 99284; J2405; J3030

== ENCOUNTER 2023-07-19 17:30 | Emergency (ER) | payer OTHER, SELFPAY ==
[2023-07-19 17:58] VITALS: BP 130/72; PULSE 94; RESP 20; TEMP 36.3; O2SAT 99; BMI 39.9
--- NOTE | 2023-07-19 18:02 | ED_ITS ---
HPI - General Adult General Chief complaint: Skin/Abscess/Foreign Body Stated complaint: dog bite right arm Time Seen by Provider: 07/19/23 18:01 Source: patient Mode of arrival: ambulatory Limitations: no limitations History of Present Illness HPI narrative: 27 yold female with pmh of PTSD, Major Depressive disorder, presents to the ED for dog bite. patient states she was petting the neighbors dog and than the dog was scared by a motor bike and the dog bit her in the right forearm and her face. Patient states neighbor informed her dog is uptoate with rabies. Related Data Previous Rx's ?Medication ?Instructions ?Recorded hydroxyzine HCl 25 mg tablet 25 mg PO BID PRN anxiety #14 tabs 12/03/20 escitalopram oxalate 10 mg tablet 10 mg PO DAILY #30 tabs 12/08/20 (Lexapro) ondansetron HCl 4 mg tablet 4 mg PO Q6H PRN nausea and 12/10/20 (Zofran) vomiting #10 tabs benzonatate 200 mg capsule 200 mg PO TID PRN cough #30 caps 01/18/23 ettyvyiyao-fdgigqqhrczkn-odqoswbi 1 tab PO Q6H PRN haeadace #20 tabs 01/18/23 50 mg-325 mg-40 mg tablet ibuprofen 600 mg tablet 600 mg PO Q6H PRN fever or pain 01/18/23 #30 tabs ondansetron 4 mg disintegrating 4 mg PO Q6-8H PRN nausea and 01/18/23 tablet vomiting #7 tabs sumatriptan succinate 50 mg tablet 50 mg PO Q2H PRN migraine headache 01/18/23 (Imitrex) #10 tabs amoxicillin 875 mg-potassium 1 tab PO Q12H 10 days #20 tabs 07/19/23 clavulanate 125 mg tablet naproxen 500 mg tablet 500 mg PO BID PRN pain 7 days #14 07/19/23 tabs Allergies Allergy/AdvReac Type Severity Reaction Status Date / Time citalopram [From CELEXA] Allergy Unknown Rash Verified 07/19/23 18:00 strawberry [STRAWBERRY] Allergy Unknown HIVES Verified 07/19/23 18:00 Review of Systems 2 Review of Systems: dog bite to right forearm and face Yes all other systems are reviewed and are negative PMFSH Past Medical History Medical History Miscarriage Social History Social History Household Members: Significant Other, Friend(s) and Other Household Members Other:: Friend's three children Patient Tobacco Use Status: Current everyday Tobacco user Tobacco use type: Cigarette Cigarette Packs Per Day: 0.5 Cigarettes Per Day: 10 Advance Directives: No Advance Directives Information Provided: No Physical Exam ED Vital Signs: Vital Signs - 24 hr 07/19/23 17:58 Temperature 97.3 F Pulse Rate 94 Respiratory Rate 20 Blood Pressure 130/72 Pulse Oximetry 99 Oxygen Delivery Method Room Air BMI result Body Mass Index 39.9 Const General: cooperative, healthy appearing, comfortable, no acute distress, well developed, alert and awake Orientation/consciousness: oriented to person, oriented to place, oriented to time and patient oriented x3 HENMT Head: Yes normal to inspection, Yes No palpable skull fracture present and Yes normocephalic Head images: 2 1. Small very superficial abrasion no need for laceration repair. No active bleeding. Rest of face normal Eyes General: appearance normal, both eyes and all related structures Neck Neck: Yes normal visual inspection, Yes full ROM, Yes no lymphadenopathy, Yes no meningeal signs, Yes trachea midline, Yes supple, No anterior neck swelling and No tender Chest Chest palpation & inspection: normal inspection of the chest and normal palpation of entire chest wall Resp Effort & Inspection: normal respiratory effort and able to speak in complete sentences Auscultation: clear to auscultation bilaterally Cardio Jugular venous distension: no JVD GI Inspection: Yes normal to inspection and Yes abdominal wall ecchymosis General: No CVA tenderness and Yes no CVA tenderness Back/Spine/Pelvis Back: no CVA tenderness, No CVA tenderness and No back tenderness Skin General skin exam: no rashes or lesions noted, elasticity normal and turgor normal Neuro General: oriented to person, oriented to place, oriented to time, patient oriented x3, gait normal, tone normal, moves all extremities, Normal light touch and pain sensation, no meningeal signs, no focal motor deficits, CN's II-XI intact bilaterally and normal sensation to monofilament Extrem General: Yes normal to inspection and Yes full ROM Elbow/forearm/wrist images: 2 1. Dog bite. Not deep. No gapping hole. Rest of extremity normal. Motor/neuro/vascular exam intact Psych Appearance: grossly normal, well kempt and not disheveled Course Course Course Narrative: RME: 27 yold female presents to the ED for dog bite to right forearm bite and right face. Right face bite is superficial on cheek. Right forearm bite does not need suture repair. Patient states her the dog that bit her uptodate with tetanus. Medications Administered Discontinued Medications Generic Name Dose Route Start Last Admin Trade Name Freq PRN Reason Stop Dose Admin Diphtheria/Tetanus/Acell Pertussis 0.5 ml 07/19/23 18:02 07/19/23 18:05 Diphth,Pertus(Acell),Tet Adult 0.5 Ml Syringe IM 07/19/23 18:03 0.5 ml .ONCE ONE Administration Ibuprofen 800 mg 07/19/23 18:02 07/19/23 18:05 Ibuprofen 800 Mg Tablet PO 07/19/23 18:03 800 mg ONCE ONE Administration Medical Decision Making Medical Decision Making MDM Narrative: RME: 27 yold female presents to ED for dog bite. Patient states dog is up-to-date with rabies status as per dog yard switch operator who has a neighbor. Patient will watch dog. Patient given tetanus discharged antibiotics. No need for laceration repari. Patient explained worrisome signs and informed to return to the ED if she has them. Differential Diagnosis Differential Diagnoses: The differential diagnosis associated with the presentation includes (dog bite, rabies) Admission/Observation Consideration of admission/observation: Escalation of care including admission/observation considered Independent Historian Clinical information obtained from an independent historian. History obtained from or confirmed by: Other (patient) External Record Review External record reviewed: Other (prior visits) Prescription Management I considered prescription management with: Antibiotic Discharge Plan Discharge Clinical Impression: Dog bite Patient Disposition: Home, Self-Care Instructions: Animal Bite (ED) Additional Instructions: Return to the ED for any swelling, redness, pus discharge, fever, chills, foul odor, red streaks, or any other concerning symptoms. Recommend follow-up with primary care provider. Recommend follow-up with neighbor to confirm rabies status of dog. Prescriptions: New amoxicillin-pot clavulanate 875-125 mg tablet 1 tab PO Q12H 10 Days Qty: 20 0RF naproxen 500 mg tablet 500 mg PO BID PRN (Reason: pain) 7 Days Qty: 14 0RF No Action hydroxyzine HCl 25 mg tablet 25 mg PO BID PRN (Reason: anxiety) Qty: 14 0RF escitalopram oxalate [Lexapro] 10 mg tablet 10 mg PO DAILY Qty: 30 0RF ondansetron HCl [Zofran] 4 mg tablet 4 mg PO Q6H PRN (Reason: nausea and vomiting) Qty: 10 0RF benzonatate 200 mg capsule 200 mg PO TID PRN (Reason: cough) Qty: 30 0RF sumatriptan succinate [Imitrex] 50 mg tablet 50 mg PO Q2H PRN (Reason: migraine headache) Qty: 10 0RF Rx Instructions: do not exceed 2 doses per 24 hrs meditysgxp-xgxqauixfsbra-twqy 50-325-40 mg tablet 1 tab PO Q6H PRN (Reason: haeadace) Qty: 20 0RF ibuprofen 600 mg tablet 600 mg PO Q6H PRN (Reason: fever or pain) Qty: 30 0RF ondansetron 4 mg tablet,disintegrating 4 mg PO Q6-8H PRN (Reason: nausea and vomiting) Qty: 7 0RF Stand Alone Forms: Work/School Release Interventions: ED Discharge Assessment Last Done: 07/19/23 18:39 Discharge Date/Time: 07/19/23 18:40 Print Language: Mongolian
[2023-07-19] MEDS: Ibuprofen 800 MG TABLET PO (18:05)
[2023-07-19] MEDS: Diphth,Pertus(ACell),Tet Adult 0.5 ML SYRINGE IM (18:05)
[2023-07-19 18:39] VITALS: BP 130/72; PULSE 94; RESP 20; TEMP 36.3; O2SAT 99
== END 2023-07-19 18:40 | disposition home or self-care (01) ==
PROVIDERS: Emergency Provider Emergency Medicine; PCP Internal Medicine
DX: S51.851A Open bite of right forearm, initial encounter (principal); S50.811A Abrasion of right forearm, initial encounter; W54.0XXA Bitten by dog, initial encounter; Y93.9 Activity, unspecified; Y92.89 Other specified places as the place of occurrence of the external cause; Y99.8 Other external cause status; Z79.899 Other long term (current) drug therapy; Z23 Encounter for immunization
CPT/HCPCS: 90471; 90715; 99283; 99284

== ENCOUNTER 2024-01-02 04:48 | Emergency (ER) | payer OTHER, SELFPAY ==
[2024-01-02 04:51] VITALS: BP 113/61; PULSE 110; RESP 18; TEMP 37.6; O2SAT 97; BMI 41.1
[2024-01-02 05:48] LABS: IDNOW Serial# 6674DD1D; Strep A Nucleic Acid Positive (Negative)
--- NOTE | 2024-01-02 06:27 | ED_ITS ---
HPI - General Adult General Chief complaint: General Medical Stated complaint: sore throat Time Seen by Provider: 01/02/24 06:26 Source: patient Mode of arrival: ambulatory Limitations: no limitations History of Present Illness ED Provider: jaime TAYLOR narrative: Patient has been having sore throat low-grade fever body aches since yesterday painful to swallow no other family member sick occasional cough no rash Related Data Previous Rx's ?Medication ?Instructions ?Recorded hydroxyzine HCl 25 mg tablet 25 mg PO BID PRN anxiety #14 tabs 12/03/20 escitalopram oxalate 10 mg tablet 10 mg PO DAILY #30 tabs 12/08/20 (Lexapro) ondansetron HCl 4 mg tablet 4 mg PO Q6H PRN nausea and 12/10/20 (Zofran) vomiting #10 tabs benzonatate 200 mg capsule 200 mg PO TID PRN cough #30 caps 01/18/23 vjgxwjdizt-pjuazdkkjmpgu-ftesrogc 1 tab PO Q6H PRN haeadace #20 tabs 01/18/23 50 mg-325 mg-40 mg tablet ibuprofen 600 mg tablet 600 mg PO Q6H PRN fever or pain 01/18/23 #30 tabs ondansetron 4 mg disintegrating 4 mg PO Q6-8H PRN nausea and 01/18/23 tablet vomiting #7 tabs sumatriptan succinate 50 mg tablet 50 mg PO Q2H PRN migraine headache 01/18/23 (Imitrex) #10 tabs amoxicillin 875 mg-potassium 1 tab PO Q12H 10 days #20 tabs 07/19/23 clavulanate 125 mg tablet naproxen 500 mg tablet 500 mg PO BID PRN pain 7 days #14 07/19/23 tabs cefuroxime axetil 500 mg tablet 500 mg PO BID 10 days #20 tabs 01/02/24 codeine 10 mg-guaifenesin 100 mg/5 10 ml PO Q6H PRN cough #237 mL 01/02/24 mL oral liquid ibuprofen 600 mg tablet 600 mg PO Q6H PRN pain #20 tabs 01/03/24 Allergies Allergy/AdvReac Type Severity Reaction Status Date / Time citalopram [From CELEXA] Allergy Unknown Rash Verified 01/03/24 13:08 strawberry [STRAWBERRY] Allergy Unknown HIVES Verified 01/03/24 13:08 Review of Systems Review of Systems: Yes all other systems are reviewed and are negative [facility] Past Medical History Medical History Miscarriage Social History Social History Household Members: Significant Other, Friend(s) and Other Household Members Other:: Friend's three children Patient Tobacco Use Status: Current everyday Tobacco user Tobacco use type: Cigarette Cigarette Packs Per Day: 0.5 Cigarettes Per Day: 10 Advance Directives: No Advance Directives Information Provided: Yes Do you have a plan to hurt others: No Plan Physical Exam ED Vital Signs: Vital Signs - 24 hr 01/02/24 04:51 01/02/24 06:28 Temperature 99.6 F 100.1 F Pulse Rate 110 H 98 Respiratory Rate 18 22 H Blood Pressure 113/61 121/56 L Pulse Oximetry 97 99 Oxygen Delivery Method Room Air Room Air BMI result Body Mass Index 41.1 Appearance: Alert. Oriented X3. No acute distress. ENT: Pharynx enlarged tonsils with exudates bilateral symmetrical Oral Mucosa moist Neck: Normal inspection. Neck supple. CVS: Normal heart rate and rhythm. Pulses normal. Respiratory: No respiratory distress. Equal air entry bilateral, no wheezing/rales/rhonchi Skin: Skin warm and dry. Normal skin color. Normal skin turgor. Extremities: No lower extremity edema. Neuro: Oriented X 3. Medications Administered Discontinued Medications Generic Name Dose Route Start Last Admin Trade Name Freq PRN Reason Stop Dose Admin Cefuroxime Axetil 500 mg 01/02/24 06:27 01/02/24 06:38 Cefuroxime Axetil 500 Mg Tablet PO 01/02/24 06:28 500 mg ONCE ONE Administration Guaifenesin/Codeine Phosphate 10 ml 01/02/24 06:49 01/02/24 07:05 Guaifen/Codeine Sf 200/20/10ml 10 Ml Liquid PO 01/02/24 06:50 10 ml NOW STA Administration Ibuprofen 600 mg 01/02/24 06:27 01/02/24 06:38 Ibuprofen Oral Susp 200 Mg/10 Ml Oral.Susp PO 01/02/24 06:28 600 mg ONCE ONE Administration Lidocaine HCl 15 ml 01/02/24 06:27 01/02/24 06:38 Lidocaine Hcl Viscous 2 % 15 Ml Solution MUCOUS MEM 01/02/24 06:28 15 ml ONCE ONE Administration Ondansetron HCl 4 mg 01/02/24 06:49 01/02/24 07:05 Ondansetron Odt 4 Mg Tab.Rapdis TRANSLINGU 01/02/24 06:50 4 mg ONCE ONE Administration Medical Decision Making Medical Decision Making [facility] Narrative: Patient has strep pharyngitis no abscess was seen prescribe cefuroxime morphine and codeine cough syrup Lab Data [facility] Lab Attestation statement: I reviewed the patient's lab results. Labs: Lab Results 01/02/24 Range/Units 04:58 S. pyogenes GrpA MANUELA Positive A (Negative) Discharge Plan Discharge Clinical Impression: Acute streptococcal pharyngitis Patient Disposition: Home, Self-Care Instructions: Strep Throat (ED) Additional Instructions: Take antibiotic as prescribed Ibuprofen for pain Saline gargles Follow with your PCP Report to the ER if worsening of the throat/high fever Prescriptions: New codeine-guaifenesin 10-100 mg/5 mL liquid 10 ml PO Q6H PRN (Reason: cough) Qty: 237 0RF cefuroxime axetil 500 mg tablet 500 mg PO BID 10 Days Qty: 20 0RF No Action hydroxyzine HCl 25 mg tablet 25 mg PO BID PRN (Reason: anxiety) Qty: 14 0RF escitalopram oxalate [Lexapro] 10 mg tablet 10 mg PO DAILY Qty: 30 0RF ondansetron HCl [Zofran] 4 mg tablet 4 mg PO Q6H PRN (Reason: nausea and vomiting) Qty: 10 0RF ibuprofen 600 mg tablet 600 mg PO Q6H PRN (Reason: pain) Qty: 20 0RF benzonatate 200 mg capsule 200 mg PO TID PRN (Reason: cough) Qty: 30 0RF sumatriptan succinate [Imitrex] 50 mg tablet 50 mg PO Q2H PRN (Reason: migraine headache) Qty: 10 0RF Rx Instructions: do not exceed 2 doses per 24 hrs byzkenugvo-wimswmlevlubs-uxma 50-325-40 mg tablet 1 tab PO Q6H PRN (Reason: haeadace) Qty: 20 0RF ibuprofen 600 mg tablet 600 mg PO Q6H PRN (Reason: fever or pain) Qty: 30 0RF ondansetron 4 mg tablet,disintegrating 4 mg PO Q6-8H PRN (Reason: nausea and vomiting) Qty: 7 0RF amoxicillin-pot clavulanate 875-125 mg tablet 1 tab PO Q12H 10 Days Qty: 20 0RF naproxen 500 mg tablet 500 mg PO BID PRN (Reason: pain) 7 Days Qty: 14 0RF Stand Alone Forms: Work/School Release Discharge Date/Time: 01/02/24 07:11 Print Language: Azeri
[2024-01-02 06:28] VITALS: BP 121/56; PULSE 98; RESP 22; TEMP 37.8; O2SAT 99
[2024-01-02] MEDS: Lidocaine HCl Viscous 2 % 15 ML SOLUTION MUCOUS MEM (06:38)
[2024-01-02] MEDS: Ibuprofen Oral Susp 200 MG/10 ML ORAL.SUSP 600 MG PO (06:38)
[2024-01-02] MEDS: cefuroxime axetiL 500 MG TABLET PO (06:38)
[2024-01-02] MEDS: guaiFEN/Codeine SF 200/20/10ML 10 ML LIQUID PO (07:05)
[2024-01-02] MEDS: Ondansetron ODT 4 MG TAB.RAPDIS TRANSLINGU (07:05)
[2024-01-02 07:07] VITALS: BP 116/65; PULSE 100; RESP 16; TEMP 37.3; O2SAT 95
== END 2024-01-02 07:11 | disposition home or self-care (01) ==
PROVIDERS: Emergency Provider Internal Medicine; PCP Internal Medicine
DX: J02.0 Streptococcal pharyngitis (principal); R50.9 Fever, unspecified; F17.210 Nicotine dependence, cigarettes, uncomplicated
CPT/HCPCS: 87651; 99283

== ENCOUNTER 2024-01-03 12:36 | Emergency (ER) | payer OTHER, SELFPAY ==
[2024-01-03 13:05] VITALS: BP 107/61; PULSE 78; RESP 20; TEMP 36.2; O2SAT 98; BMI 40.0
--- NOTE | 2024-01-03 13:07 | ED_ITS ---
HPI - General Adult General Chief complaint: Upper Respiratory Symptoms Stated complaint: seen yesterday, strep+, throat closing, more pus Time Seen by Provider: 01/03/24 13:07 Source: patient, RN notes reviewed and old records reviewed Mode of arrival: ambulatory Limitations: no limitations History of Present Illness ED Provider: Toshia HPI narrative: 28-year-old female presents for evaluation of a sore throat. She reports that her symptoms started a few days ago. She was seen here yesterday and diagnosed with strep pharyngitis. She was prescribed cefuroxime which she reports she has been taking. She has been using ibuprofen with good relief of her symptoms She reports that there is ?more pus in the back of my throat. ? She reports that she is still able to swallow pills and tolerate liquids but has pain with solid foods No other complaints or concerns at this time Related Data Previous Rx's ?Medication ?Instructions ?Recorded hydroxyzine HCl 25 mg tablet 25 mg PO BID PRN anxiety #14 tabs 12/03/20 escitalopram oxalate 10 mg tablet 10 mg PO DAILY #30 tabs 12/08/20 (Lexapro) ondansetron HCl 4 mg tablet 4 mg PO Q6H PRN nausea and 12/10/20 (Zofran) vomiting #10 tabs benzonatate 200 mg capsule 200 mg PO TID PRN cough #30 caps 01/18/23 wdmmjfztpz-alsmtadgdcdui-opbhxegc 1 tab PO Q6H PRN haeadace #20 tabs 01/18/23 50 mg-325 mg-40 mg tablet ibuprofen 600 mg tablet 600 mg PO Q6H PRN fever or pain 01/18/23 #30 tabs ondansetron 4 mg disintegrating 4 mg PO Q6-8H PRN nausea and 01/18/23 tablet vomiting #7 tabs sumatriptan succinate 50 mg tablet 50 mg PO Q2H PRN migraine headache 01/18/23 (Imitrex) #10 tabs amoxicillin 875 mg-potassium 1 tab PO Q12H 10 days #20 tabs 07/19/23 clavulanate 125 mg tablet naproxen 500 mg tablet 500 mg PO BID PRN pain 7 days #14 07/19/23 tabs cefuroxime axetil 500 mg tablet 500 mg PO BID 10 days #20 tabs 01/02/24 codeine 10 mg-guaifenesin 100 mg/5 10 ml PO Q6H PRN cough #237 mL 01/02/24 mL oral liquid ibuprofen 600 mg tablet 600 mg PO Q6H PRN pain #20 tabs 01/03/24 Allergies Allergy/AdvReac Type Severity Reaction Status Date / Time citalopram [From CELEXA] Allergy Unknown Rash Verified 01/03/24 13:08 strawberry [STRAWBERRY] Allergy Unknown HIVES Verified 01/03/24 13:08 Review of Systems Constitutional: Constitutional: Denies body ache(s), Denies chills and Denies fever(s) ENT: Reports sore throat Respiratory: Respiratory: Denies cough PMFSH Past Medical History Medical History Miscarriage Social History Social History Household Members: Significant Other, Friend(s) and Other Household Members Other:: Friend's three children Patient Tobacco Use Status: Current everyday Tobacco user Tobacco use type: Cigarette Cigarette Packs Per Day: 0.5 Cigarettes Per Day: 10 Advance Directives: No Advance Directives Information Provided: Yes Do you have a plan to hurt others: No Plan Physical Exam ED Vital Signs: Vital Signs - 24 hr 01/03/24 13:05 01/03/24 13:11 Temperature 97.1 F 97.1 F Pulse Rate 78 78 Respiratory Rate 20 20 Blood Pressure 107/61 107/61 Pulse Oximetry 98 98 Oxygen Delivery Method Room Air Room Air BMI result Body Mass Index 40.0 Const General: healthy appearing, comfortable, no acute distress, alert and awake Nutritional Appearance: well nourished Orientation/consciousness: patient oriented x3 HENMT Other: Bilateral attempts hypertrophy with whitish exudates. Airway remains patent. Head: Yes normocephalic and Yes atraumatic Eyes Eyelids: Yes eyelids normal Conjunctivae: conjunctivae normal Sclerae: sclerae normal Corneas: corneas normal Pupils: Equal, round and reactive pupils present EOM: EOMs intact bilaterally Neck Other: No anterior neck swelling Neck: Yes full ROM Resp Effort & Inspection: normal respiratory effort, able to speak in complete sentences and not labored Skin General skin exam: elasticity normal Neuro General: patient oriented x3 Cranial nerves: Yes Equal, round and reactive pupils present and Yes Bilaterally intact EOM present Cognition (Neuro): normal cognition Extrem Other: Moving all extremities well without any obvious deformities Medical Decision Making Medical Decision Making MDM Narrative: Patient is being treated appropriately for strep pharyngitis. She has no evidence of peritonsillar abscess, trismus. She was able to tolerate p.o. intake. The patient was reassured and will be discharged Differential Diagnosis Differential Diagnoses: The differential diagnosis associated with the presentation includes Strep pharyngitis Viral pharyngitis Exudative pharyngitis Peritonsillar abscess Discharge Plan Discharge Clinical Impression: Acute streptococcal pharyngitis Patient Disposition: Home, Self-Care Instructions: Strep Throat (ED) Additional Instructions: You do not have any evidence of an abscess. Continue using your antibiotic. You may continue using ibuprofen Follow-up with your primary doctor, return for new or worsening symptoms Prescriptions: New ibuprofen 600 mg tablet 600 mg PO Q6H PRN (Reason: pain) Qty: 20 0RF No Action hydroxyzine HCl 25 mg tablet 25 mg PO BID PRN (Reason: anxiety) Qty: 14 0RF escitalopram oxalate [Lexapro] 10 mg tablet 10 mg PO DAILY Qty: 30 0RF ondansetron HCl [Zofran] 4 mg tablet 4 mg PO Q6H PRN (Reason: nausea and vomiting) Qty: 10 0RF codeine-guaifenesin 10-100 mg/5 mL liquid 10 ml PO Q6H PRN (Reason: cough) Qty: 237 0RF cefuroxime axetil 500 mg tablet 500 mg PO BID 10 Days Qty: 20 0RF benzonatate 200 mg capsule 200 mg PO TID PRN (Reason: cough) Qty: 30 0RF sumatriptan succinate [Imitrex] 50 mg tablet 50 mg PO Q2H PRN (Reason: migraine headache) Qty: 10 0RF Rx Instructions: do not exceed 2 doses per 24 hrs cppjniplck-oyumfssvagpmv-nwqs 50-325-40 mg tablet 1 tab PO Q6H PRN (Reason: haeadace) Qty: 20 0RF ibuprofen 600 mg tablet 600 mg PO Q6H PRN (Reason: fever or pain) Qty: 30 0RF ondansetron 4 mg tablet,disintegrating 4 mg PO Q6-8H PRN (Reason: nausea and vomiting) Qty: 7 0RF amoxicillin-pot clavulanate 875-125 mg tablet 1 tab PO Q12H 10 Days Qty: 20 0RF naproxen 500 mg tablet 500 mg PO BID PRN (Reason: pain) 7 Days Qty: 14 0RF Interventions: ED Discharge Assessment Last Done: 01/03/24 13:11 Discharge Date/Time: 01/03/24 13:12 Print Language: Estonian
[2024-01-03 13:11] VITALS: BP 107/61; PULSE 78; RESP 20; TEMP 36.2; O2SAT 98
== END 2024-01-03 13:12 | disposition home or self-care (01) ==
PROVIDERS: Emergency Provider Emergency Medicine; PCP Internal Medicine
DX: J02.0 Streptococcal pharyngitis (principal); F17.210 Nicotine dependence, cigarettes, uncomplicated; Z79.899 Other long term (current) drug therapy
CPT/HCPCS: 99282; 99283